=== PATIENT | male | born 1955 | race African-American/Black ===

== ENCOUNTER 2017-12-26 01:30 | Inpatient (IN) | payer MEDICARE ==
[2017-12-26] MEDS ORDERED: Maalox 30 mL Cup PO PRN (02:06)
[2017-12-26] MEDS ORDERED: Magnesium Hydroxide (MOM) 30 mL UDC PO PRN (02:06)
[2017-12-26 02:21] VITALS: BP 160/88
[2017-12-26] MEDS: Diltiazem 30 mg Tab PO SCH ×2 (08:28→21:17)
[2017-12-26] MEDS: Multivitamin Tab PO SCH (08:30)
[2017-12-26] MEDS ORDERED: OLANZapine 5 mg Oral Disintegrating Tab PO SCH (09:00)
[2017-12-26] MEDS: INSULIN ASPART, RECOMBINANT 100 UNITS/ML SUBQ SCH ×3 (12:10→21:41)
--- NOTE | 2017-12-26 14:22 | History & Physical ---
ADMIT DATE: REQUESTING PHYSICIAN: Dr. Amelia Feliciano. PATIENT IDENTIFICATION: A 62-year-old male. REASON: Medical management. CHIEF COMPLAINT: "Can I go home." HISTORY OF PRESENT ILLNESS: A 62-year-old -[place] male who initially presented to [facility] with agitation and refused to wear clothes. The patient was gravely disable, where the patient was initially seen by Emergency Room MD and then psychiatrist. The patient was medically evaluated and medically cleared and subsequently transferred to [facility] for further psychiatric treatment. The patient is trying to provide history, but most of the history is obtained from reviewing the chart. Apparently, the patient lives in psych and locked facility in long-term. PAST MEDICAL HISTORY: Remarkable; 1. Hypertension. 2. Hyperlipidemia. 3. Psychotic disorder. 4. Dementia. 5. DJD. MEDICATIONS AT HOME: The patient is taking; 1. Metoprolol. 2. Cardizem. 3. Atorvastatin. 4. Depakote. 5. Risperdal. 6. Namenda. 7. Aspirin. 8. Sliding scale insulin. ALLERGIES: THE PATIENT IS ALLERGIC TO IBUPROFEN AND LISINOPRIL. SOCIAL HISTORY: The patient lives in a long-term. The patient has no smoking cigarette, alcohol, or drug use. FAMILY MEDICAL HISTORY: Remarkable for hypertension and diabetes. REVIEW OF SYSTEMS: The patient denies any headache, blurred vision, double vision, dysphagia, odynophagia, runny nose, stuffy nose, fever, chills, cough, chest pain, shortness of breath, palpitation, dizziness, nausea, vomiting, diarrhea, dysuria, hematochezia, or melena. No seizure or syncopal episode. PHYSICAL EXAMINATION: GENERAL: The patient is alert, awake, and oriented, lying in the bed without any acute distress. VITAL SIGNS: Temperature 97, pulse is 95, respiratory rate is 18, and blood pressure is 154/87. HEENT: Showed normocephalic and atraumatic. Extraocular muscles are intact. Tongue was pink and coated. Multiple absent teeth noted. Poor oral hygiene noted. No oral lesions noted. No exudate. NECK: Supple. No JVD. No hepatojugular reflux. No lymphadenopathy, thyromegaly, or carotid bruit. HEART: Both heart sounds are regular. No S3, no S4, no murmur. CHEST: Lung are equal in expansion. No wheezing, no crackles. BREASTS: The patient has evidence of gynecomastia is also noted. ABDOMEN: Soft. No guarding, no rigidity. Liver and spleen not palpable. No palpable mass. EXTREMITIES: No edema. No cyanosis or clubbing. Peripheral pulses are +2. No calf tenderness noted. NEUROLOGIC: Alert and awake. Follows commands. A 2-12 cranial nerves intact. Power in upper and lower extremities 5-. Sensory touch intact. Babinski's in both toes are going down. No cerebellar sign. AVAILABLE LABS: Including CT scan of the head has been reviewed from [facility]. CLINICAL IMPRESSION: 1. Psychotic disorder exacerbation. 2. Diabetes. 3. Hypertension. 4. Hyperlipidemia. 5. Degenerative joint disease. 6. Psychotic disorder. 7. Dementia. 8. Gynecomastia. 9. Fall risk. PLAN: 1. The patient is admitted at this time to psych facility, psychiatric evaluation and management deferred to psychiatrist. 2. The patient is to resume his underlying medications for his underlying problem, which include atorvastatin for hyperlipidemia, diltiazem for hypertension along with metoprolol. Continue the patient's Namenda for dementia along with Risperdal and Zyprexa for his psychotic illness. Symptoms management provided. Diabetes management will be done by checking glucose before meals and at bedtime with covering the blood sugar, sliding scale regular insulin as well. Fall precaution will be provided as well. We will continue to follow this patient during the stay at the hospital as well. As for the gynecomastia is concern, the patient can have further workup to be done as an outpatient. I sincerely thank you, Dr. Amelia Feliciano for giving me opportunity to participating in patient of yours. JOB# [id number]
[2017-12-26] MEDS: Atorvastatin Calcium 10 MG TAB PO SCH (21:17)
--- NOTE | 2017-12-27 00:44 | Psychosocial Evaluation ---
DATE OF SERVICE: 12/26/2017 AGE: 62. SEX: Male. PHYSICIAN: Braden. CHIEF COMPLAINT: 5150 hold for combative behavior. HISTORY OF PRESENT ILLNESS: The patient is a 62-year-old male who has a history of schizoaffective disorder. The patient was transferred from [facility] because of increased agitation and because of combative behavior. The patient has been confused and aggressive with staff in the half-way and has been responding to stimuli and talking to himself. The patient also has been easily agitated and irritable and unable to follow any of staff directions. The patient has history of Parkinson disease, which makes his condition worse. PAST PSYCHIATRIC HISTORY: The patient has history of schizoaffective disorder and has been taking Zyprexa. PAST MEDICAL HISTORY: The patient has seizure disorder and hypertension as well as Parkinson disease and hyperlipidemia. SOCIAL HISTORY: The patient lives in [facility]. No known alcohol or drug use. ALLERGIES: No known allergies. CURRENT MEDICATIONS: Zyprexa, Namenda, Risperdal, and Depakote. MENTAL STATUS EXAMINATION: The patient appears his stated age. Anxious. Irritable mood. Thought processes are circumstantial with occasional flight of ideas. The patient denies hallucinations or delusions and denies any suicidal or homicidal ideations. The patient is alert and oriented to the situation and place and person. Intact immediate, recent and remote memories. Poor insight and poor judgment. ASSESSMENT: Primary diagnosis; schizoaffective disorder, bipolar type, severe, with psychotic features. TREATMENT PLAN: We will continue current medications and will adjust the dose. We will start individual as well as milieu psychotherapy. ESTIMATED LENGTH OF STAY: 5-7 days. THE PATIENT'S STRENGTHS AND WEAKNESSES: The patient's strength is not clear at this time. Weaknesses is poor impulse control. AFTER DISCHARGE PLAN: Outpatient treatment and followup. We will continue as an outpatient. CRITERIA FOR DISCHARGE: Better impulse control and gets agitated and adjusting psychotropic medications. JOB# [id number]
[2017-12-27] MEDS: INSULIN ASPART, RECOMBINANT 100 UNITS/ML SUBQ SCH ×4 (07:06→20:56)
[2017-12-27] MEDS: Multivitamin Tab PO SCH (08:03)
[2017-12-27] MEDS: Diltiazem 30 mg Tab PO SCH ×2 (08:06→20:56)
[2017-12-27] MEDS: OLANZapine 5 mg Oral Disintegrating Tab PO SCH ×2 (10:00→16:43)
[2017-12-27] MEDS: Atorvastatin Calcium 10 MG TAB PO SCH (20:52)
[2017-12-28] MEDS: INSULIN ASPART, RECOMBINANT 100 UNITS/ML SUBQ SCH ×4 (06:56→20:49)
[2017-12-28] MEDS: OLANZapine 5 mg Oral Disintegrating Tab PO SCH ×2 (08:36→16:57)
[2017-12-28] MEDS ORDERED: Haloperidol Lactate 5 mg/mL 1mL Vial ONE (08:59)
[2017-12-28] MEDS ORDERED: Haloperidol Lactate 5 mg/mL 1mL Vial IM ONE (09:08)
[2017-12-28] MEDS: Diltiazem 30 mg Tab PO SCH ×2 (13:59→20:30)
[2017-12-28] MEDS: Multivitamin Tab PO SCH (13:59)
[2017-12-28] MEDS: Atorvastatin Calcium 10 MG TAB PO SCH (20:30)
[2017-12-29] MEDS: INSULIN ASPART, RECOMBINANT 100 UNITS/ML SUBQ SCH ×4 (06:38→22:02)
[2017-12-29] MEDS: OLANZapine 5 mg Oral Disintegrating Tab PO SCH ×2 (08:34→16:19)
[2017-12-29] MEDS: Multivitamin Tab PO SCH (08:34)
[2017-12-29] MEDS: Diltiazem 30 mg Tab PO SCH (08:45)
--- NOTE | 2017-12-29 13:58 | General Progress Note ---
Subjective - Review of Systems Subjective: Patient is seen and examined. No new events. Objective - Results Recent Labs: Laboratory Last Values POC Glucose 121 MG/DL (70 - 105) H 12/29/17 11:16 Valproic Acid 45.9 ug/mL (50.0-100.0) L 12/28/17 12:40 - Physical Exam Vitals and I&O: Vital Signs Temp 97.8 F 12/29/17 06:00 Pulse 98 12/29/17 08:45 Resp 20 12/29/17 06:00 BP 134/72 12/29/17 08:34 Pulse Ox 100 12/29/17 06:00 Intake & Output 12/28/17 12/29/17 12/29/17 18:59 06:59 18:59 Intake Total 850 120 250 Balance 850 120 250 Intake: Oral 850 120 250 Other: # Voids 4 1 2 # Bowel Movements 1 0 Active Medications: Current Medications Acetaminophen (Tylenol) 650 mg PO Q4HR PRN PRN Reason: Mild Pain / Temp above 100 Stop: 02/24/18 02:05 Al Hydrox/Mg Hydrox/Simethicone (Maalox) 30 ml PO Q4HR PRN PRN Reason: GI DISTRESS Stop: 02/24/18 02:05 Alprazolam (Xanax) 1 mg PO Q6HR PRN; Protocol PRN Reason: Anxiety Stop: 02/24/18 02:18 Atorvastatin Calcium (Lipitor) 40 mg PO HS KAYODE PRN Reason: Protocol Stop: 02/24/18 20:59 Last Admin: 12/28/17 20:30 Dose: 40 mg Diltiazem HCl (Cardizem) 120 mg PO Q12HR KAYODE Stop: 02/24/18 08:59 Last Admin: 12/29/17 08:45 Dose: 120 mg Divalproex Sodium (Depakote Dr) 500 mg PO HS KAYODE PRN Reason: Protocol Stop: 02/24/18 20:59 Last Admin: 12/28/17 20:30 Dose: 500 mg Docusate Sodium (Colace) 100 mg PO DAILY KAYODE Stop: 02/24/18 08:59 Last Admin: 12/29/17 08:34 Dose: 100 mg Insulin Aspart (Novolog) 0 units SUBQ ACHS KAYODE PRN Reason: Protocol Stop: 05/06/18 11:29 Last Admin: 12/29/17 11:18 Dose: Not Given Lorazepam (Ativan) 0.5 mg PO Q4HR PRN; Protocol PRN Reason: Anxiety Stop: 01/25/18 02:05 Last Admin: 12/29/17 10:48 Dose: 0.5 mg Magnesium Hydroxide (Milk Of Magnesia) 30 ml PO HS PRN PRN Reason: Constipation Memantine (Namenda) 5 mg PO BID KAYODE Stop: 02/24/18 08:59 Last Admin: 12/29/17 08:34 Dose: 5 mg Metoprolol Tartrate (Lopressor) 25 mg PO BID KAYODE Stop: 02/24/18 08:59 Last Admin: 12/29/17 08:34 Dose: 25 mg Multivitamins/Vitamin C (Theragran) 1 tab PO DAILY KAYODE Stop: 02/24/18 08:59 Last Admin: 12/29/17 08:34 Dose: 1 tab Olanzapine (Zyprexa Zydis) 10 mg PO BID KAYODE PRN Reason: Protocol Stop: 02/25/18 07:44 Last Admin: 12/29/17 08:34 Dose: 10 mg Zolpidem Tartrate (Ambien) 5 mg PO HS PRN PRN Reason: Insomnia Stop: 02/24/18 02:05 Last Admin: 12/28/17 20:30 Dose: 5 mg General: Alert, Cooperative, No acute distress HEENT: Atraumatic, PERRLA, EOMI Neck: Supple, JVD Cardiovascular: Regular rate, Normal S1, Normal S2 Lungs: Clear to auscultation Abdomen: Bowel sounds, Soft Extremities: Other (No edema.) Neurological: Cranial nerves 3-12 NL, Other (decreased power through out.) Skin: Rash (No rash) Assessment/Plan - Assessment Assessment: Diabetes. Hypertension. Hyperlipedemia. DJD Dementia. Psych disorder. Debility Gynecomastia Fall risk. - Plan Plan: Monitor glucose and vitals General nursing care Diabetes management Anti HTN meds Statin. Psych meds Psych follow up Falls precautions Continue current care Discussed with staff.
[2017-12-29] MEDS: Atorvastatin Calcium 10 MG TAB PO SCH (22:00)
--- NOTE | 2017-12-29 22:16 | Progress Notes ---
DATE: 12/27/2017 SUBJECTIVE: Chart reviewed and the patient interviewed. Also discussed the patient's condition with the staff and reviewed records and labs. The patient continued to be agitated and he is still in irritable mood. Also, is still confused and he is still resisting care and gets agitated when staff tries to help him. Also, still suspicious and paranoid. Also difficulty following directions. Otherwise, the patient is compliant with taking his medications with no side effects of medications. ASSESSMENT: The patient is still aggressive and can be dangerous to others. TREATMENT PLAN: We will increase Zyprexa to 10 mg twice a day and also increase Ativan to 1 mg every 4 hours on a p.r.n. basis. Also, continue to follow up to work on behavioral modification and follow up closely. JOB# [id number]
--- NOTE | 2017-12-29 22:42 | Progress Notes ---
DATE: 12/28/2017 SUBJECTIVE: Chart reviewed and the patient interviewed. Also discussed the patient's condition with the staff and reviewed records and labs. The patient continued to be unpredictable and he is still in irritable mood. The patient also still has disorganized thoughts and still seems to be actively responding to stimuli and talking to himself. The patient also still trying to take his clothes off. Otherwise, the patient is compliant with taking his medications with no side effects of medications. ASSESSMENT: The patient is still combative and still can be dangerous to others. TREATMENT PLAN: We will monitor the patient's behavior and condition closely. Also, we will place the patient on a 5250 hold for dangerous to others and grave disability. Also, we will discontinue Risperdal and also Zyprexa was increased to 10 mg twice a day. Also, we will get Depakote blood level. JOB# [id number]
--- NOTE | 2017-12-30 05:32 | Progress Notes ---
DATE: SUBJECTIVE: Chart reviewed and the patient interviewed. Also discussed the patient's condition with the staff and reviewed the records and labs. The patient is still unpredictable and is still easily agitated. Also, is still aggressive at times, needs lots of redirections. The patient also continued to take Depakote in a dose of 500 mg at bedtime and Namenda 5 mg twice a day, and Zyprexa 5 mg twice a day. No side effects of medications. ASSESSMENT: The patient is still agitated and psychotic. TREATMENT PLAN: Continue to monitor his behavior and his condition closely. Also, we will increase Zyprexa to 10 mg twice a day and we will continue to follow up closely. [facility]# [id number]
[2017-12-30] MEDS: INSULIN ASPART, RECOMBINANT 100 UNITS/ML SUBQ SCH ×4 (06:46→21:08)
[2017-12-30] MEDS: Multivitamin Tab PO SCH (08:29)
[2017-12-30] MEDS: OLANZapine 5 mg Oral Disintegrating Tab PO SCH ×2 (08:33→17:38)
[2017-12-30] MEDS: Diltiazem 30 mg Tab PO SCH ×2 (08:35→21:11)
[2017-12-30] MEDS: Atorvastatin Calcium 10 MG TAB PO SCH (21:00)
[2017-12-31] MEDS: INSULIN ASPART, RECOMBINANT 100 UNITS/ML SUBQ SCH ×4 (06:49→21:00)
[2017-12-31] MEDS: Multivitamin Tab PO SCH (09:09)
[2017-12-31] MEDS: OLANZapine 5 mg Oral Disintegrating Tab PO SCH (09:09)
[2017-12-31] MEDS: Diltiazem 30 mg Tab PO SCH ×2 (09:10→21:30)
[2017-12-31] MEDS: OLANZapine 10 mg Oral Disintegrating Tab PO SCH (18:08)
[2017-12-31] MEDS: Atorvastatin Calcium 10 MG TAB PO SCH (21:33)
[2018-01-01] MEDS: INSULIN ASPART, RECOMBINANT 100 UNITS/ML SUBQ SCH ×4 (06:49→21:00)
[2018-01-01] MEDS: Multivitamin Tab PO SCH (07:59)
[2018-01-01] MEDS: Diltiazem 30 mg Tab PO SCH ×2 (08:04→21:00)
--- NOTE | 2018-01-01 17:22 | Progress Notes ---
DATE: 01/01/2018 SUBJECTIVE: A 62-year-old male with history of schizoaffective, transferred from [facility] with increased agitation, combative behaviors, confused, aggressive. The patient currently in a Bryanna chair, banging the Bryanna chair, nonsensical, saying things that do not make any sense. It is difficult to fully understand what he is saying. Still easily agitated, still responding and seemingly psychotic. MEDICATIONS: Reviewed. ASSESSMENT: The patient remains symptomatic, still aggressive, agitated. PLAN: We will continue Zyprexa. Given his ongoing symptoms, he is not safe for discharge. Also continue Depakote. JOB# [id number]
[2018-01-01] MEDS: Atorvastatin Calcium 10 MG TAB PO SCH (21:07)
[2018-01-02] MEDS: INSULIN ASPART, RECOMBINANT 100 UNITS/ML SUBQ SCH ×4 (06:35→21:20)
[2018-01-02] MEDS: Diltiazem 30 mg Tab PO SCH ×2 (08:54→21:20)
[2018-01-02] MEDS: Multivitamin Tab PO SCH (08:55)
[2018-01-02] MEDS: OLANZapine 10 mg Oral Disintegrating Tab PO SCH ×4 (08:55→16:36)
--- NOTE | 2018-01-02 09:38 | General Progress Note ---
Subjective - Review of Systems Subjective: Patient is seen and examined. No new events or complaints. Objective - Results Recent Labs: Laboratory Last Values POC Glucose 83 MG/DL (70 - 105) 01/02/18 06:28 Valproic Acid 45.9 ug/mL (50.0-100.0) L 12/28/17 12:40 - Physical Exam Vitals and I&O: Vital Signs Temp 97.8 F 01/02/18 06:35 Pulse 96 01/02/18 08:55 Resp 20 01/02/18 06:35 BP 142/92 01/02/18 08:55 Pulse Ox 96 01/02/18 06:35 Intake & Output 01/01/18 01/02/18 01/02/18 18:59 06:59 18:59 Intake Total 600 360 Balance 600 360 Intake: Oral 600 360 Other: # Voids 3 1 Active Medications: Current Medications Acetaminophen (Tylenol) 650 mg PO Q4HR PRN PRN Reason: Mild Pain / Temp above 100 Stop: 02/24/18 02:05 Al Hydrox/Mg Hydrox/Simethicone (Maalox) 30 ml PO Q4HR PRN PRN Reason: GI DISTRESS Stop: 02/24/18 02:05 Alprazolam (Xanax) 1 mg PO Q6HR PRN; Protocol PRN Reason: Anxiety Stop: 02/24/18 02:18 Last Admin: 01/01/18 19:27 Dose: 1 mg Atorvastatin Calcium (Lipitor) 40 mg PO HS KAYODE PRN Reason: Protocol Stop: 02/24/18 20:59 Last Admin: 01/01/18 21:07 Dose: 40 mg Diltiazem HCl (Cardizem) 120 mg PO Q12HR KAYODE Stop: 02/24/18 08:59 Last Admin: 01/02/18 08:54 Dose: 120 mg Divalproex Sodium (Depakote Dr) 500 mg PO HS KAYODE PRN Reason: Protocol Stop: 02/24/18 20:59 Last Admin: 01/01/18 21:07 Dose: 500 mg Docusate Sodium (Colace) 100 mg PO DAILY KAYODE Stop: 02/24/18 08:59 Last Admin: 01/02/18 08:55 Dose: 100 mg Insulin Aspart (Novolog) 0 units SUBQ ACHS KAYODE PRN Reason: Protocol Stop: 02/24/18 11:29 Last Admin: 01/02/18 06:35 Dose: Not Given Lorazepam (Ativan) 0.5 mg PO Q4HR PRN; Protocol PRN Reason: Anxiety Stop: 01/25/18 02:05 Last Admin: 12/31/17 17:17 Dose: 0.5 mg Magnesium Hydroxide (Milk Of Magnesia) 30 ml PO HS PRN PRN Reason: Constipation Memantine (Namenda) 5 mg PO BID KAYODE Stop: 02/24/18 08:59 Last Admin: 01/02/18 08:54 Dose: 5 mg Metoprolol Tartrate (Lopressor) 25 mg PO BID KAYODE Stop: 02/24/18 08:59 Last Admin: 01/02/18 08:55 Dose: 25 mg Multivitamins/Vitamin C (Theragran) 1 tab PO DAILY KAYODE Stop: 02/24/18 08:59 Last Admin: 01/02/18 08:55 Dose: 1 tab Olanzapine (Zyprexa Zydis) 10 mg PO BID KAYODE Stop: 03/01/18 16:59 Last Admin: 01/02/18 08:55 Dose: 10 mg Zolpidem Tartrate (Ambien) 5 mg PO HS PRN PRN Reason: Insomnia Stop: 02/24/18 02:05 Last Admin: 12/31/17 21:33 Dose: 5 mg General: Alert, Cooperative, No acute distress HEENT: Atraumatic, PERRLA, EOMI Neck: Supple, JVD Cardiovascular: Regular rate, Normal S1, Normal S2 Lungs: Clear to auscultation Abdomen: Bowel sounds, Soft Extremities: Other (No edema.) Neurological: Cranial nerves 3-12 NL, Other (decreased power through out.) Skin: Rash (No rash) Assessment/Plan - Assessment Assessment: Diabetes. Hypertension. Hyperlipedemia. DJD Dementia. Psych disorder. Debility Gynecomastia Fall risk. - Plan Plan: Monitor glucose and vitals General nursing care Diabetes management Anti HTN meds Statin. Symptoms control. Medication management. Psych meds Psych follow up Falls precautions Continue current care Discussed with staff. Nutritional Asmnt/Malnutr-PDOC - Dietary Evaluation Malnutrition Findings (Please click <Entered> for more info): Nutritional Asmnt/Malnutrition Start: 12/31/17 10: 03 Text: Status: Complete Freq: Document 12/31/17 10:03 LCHENG (Rec: 12/31/17 10:09 [email or web address]) Nutritional Asmnt/Malnutrition Patient General Information Nutritional Screening Moderate Risk Diagnosis psychosis Pertinent Medical Hx/Surgical Hx HTN, hyperlipidemia, psychotic disorder, dementia, DJD Subjective Information Per EMR, PO intake mostly 75- 100%. Current Diet Order/ Nutrition Support CCHO 60gm, SOLOMON/NCS, prosource daily Pertinent Medications colace, novolog, theragran Pertinent Labs 12/29-12/31 POC 69-153 Nutritional Hx/Data Height 1.93 m Height (Calculated Centimeters) 193.0 Current Weight (lbs) 72.575 kg Weight (Calculated Kilograms) 72.6 Weight (Calculated Grams) 96977.8 [place] Body Weight 202 Body Mass Index (BMI) 19.5 Weight Status Approriate GI Symptoms GI Symptoms None Last BM 12/29 Difficult in: None Skin Integrity/Comment: dryness Current %PO Good (75-100%) Estimated Nutritional Goals BEE in Kcals: Using Current wt Calories/Kcals/Kg 27-32 Kcals Calculated 8999-6697 Protein: Using Current wt Protein g/k-1.2 Protein Calculated 73-88 Fluid: ml 2044-2336ml (1ml/kcal) Nutritional Problem No current Nutrition Prob Problem N/A Malnutrition Alert Protein-Calorie Malnutrition N/A Is there a minimum of two criteria No selected? Query Text:Check all the applicable criteria. A minimum of two criteria are recommended for diagnosis of either severe or non-severe malnutrition. Intervention/Recommendation Comments 1. Continue with current diet as ordered. 2. Monitor PO intake, wt, labs and skin integrity 3. F/U as low risk in 7 days, 01/07 Expected Outcomes/Goals Expected Outcomes/Goals 1. PO intake to meet at least 75% of nutritional needs. 2. Wt stability, skin to remain intact, labs to approach WNL.
[2018-01-02] MEDS: Atorvastatin Calcium 10 MG TAB PO SCH (20:33)
--- NOTE | 2018-01-03 05:55 | Progress Notes ---
DATE: 01/02/2018 SUBJECTIVE: Chart reviewed and the patient interviewed. Also discussed the patient's condition with the staff and reviewed records and labs. The patient is still confused and disoriented. The patient also is still restless and he still needs redirections. The patient still has difficulty following staff directions. He also still has episodes of anger and agitation especially during the day. Also, still has difficulty with controlling his temper. ASSESSMENT: The patient is still agitated and is still psychotic. TREATMENT PLAN: We will continue monitoring his behavior and his condition closely. Also, continue working on his anger and his irritability and continue to follow up closely. JOB# [id number]
--- NOTE | 2018-01-03 06:26 | Progress Notes ---
DATE: 01/03/2018 SUBJECTIVE: Chart reviewed and the patient interviewed. I also discussed the patient's condition with the staff and reviewed records and labs. The patient remains confused and he still seems to be disoriented. The patient also still has episodes of aggression and the patient tries to hit staff while helping him with his ADLs. The patient also still has severe mood swings. Yesterday, the patient threw food tray towards staff. Otherwise, the patient is compliant with taking his medications with no side effects of medications. ASSESSMENT: The patient is still psychotic and agitated. TREATMENT PLAN: We will continue monitoring his behavior and his condition closely. Also, we will increase Namenda to 10 mg twice a day. Also, continue to work on behavioral modification and continue to follow up. JOB# [id number]
[2018-01-03] MEDS ORDERED: Haloperidol Lactate 5 mg/mL 1mL Vial IM ONE (06:35)
[2018-01-03] MEDS: Diltiazem 30 mg Tab PO SCH ×2 (09:00→21:09)
[2018-01-03] MEDS: Multivitamin Tab PO SCH (09:50)
[2018-01-03] MEDS: OLANZapine 10 mg Oral Disintegrating Tab PO SCH ×2 (09:50→16:41)
[2018-01-03] MEDS: INSULIN ASPART, RECOMBINANT 100 UNITS/ML SUBQ SCH ×3 (12:11→21:21)
[2018-01-03] MEDS: Atorvastatin Calcium 10 MG TAB PO SCH (21:10)
[2018-01-04] MEDS: INSULIN ASPART, RECOMBINANT 100 UNITS/ML SUBQ SCH ×4 (07:40→21:35)
[2018-01-04] MEDS: Diltiazem 30 mg Tab PO SCH ×2 (09:00→21:34)
[2018-01-04] MEDS: Multivitamin Tab PO SCH (09:10)
[2018-01-04] MEDS: OLANZapine 10 mg Oral Disintegrating Tab PO SCH ×2 (09:11→16:33)
--- NOTE | 2018-01-04 11:06 | Progress Notes ---
DATE: 01/04/2018 SUBJECTIVE: Chart reviewed and the patient interviewed. Also discussed the patient's condition with the staff and reviewed records and labs. The patient is still in irritable and angry mood. The patient also is still paranoid and still easily agitated. Also, still has mood swings. On the other hand, the patient is cooperative and compliant with taking his medications. The patient was actively talking to himself, but he seems to be calmer than yesterday and slightly easier to redirect him. ASSESSMENT: The patient is still confused and psychotic. TREATMENT PLAN: Continue to monitor his behavior and his condition closely and will continue to follow up. JOB# [id number]
[2018-01-04] MEDS: Atorvastatin Calcium 10 MG TAB PO SCH (21:36)
[2018-01-05] MEDS: INSULIN ASPART, RECOMBINANT 100 UNITS/ML SUBQ SCH ×2 (06:40→11:58)
[2018-01-05] MEDS: Multivitamin Tab PO SCH (08:02)
[2018-01-05] MEDS: OLANZapine 10 mg Oral Disintegrating Tab PO SCH (08:02)
[2018-01-05] MEDS: Diltiazem 30 mg Tab PO SCH (09:49)
[2018-01-05] MEDS ORDERED: Haloperidol Lactate 5 mg/mL 1mL Vial ONE (12:59)
[2018-01-05] MEDS ORDERED: Haloperidol Lactate 5 mg/mL 1mL Vial IM ONE (13:02)
[2018-01-05 13:58] LABS: HEMATOCRIT 53.3 % (41.0-60); HEMOGLOBIN 17.6 gm/dL (12-16); MEAN CELL VOLUME 88.5 fl (80-99); MEAN CORPUSCULAR HEMOGLOBIN 29.2 pg (26.0-30.0); MEAN CORPUSCULAR HGB CONC 32.9 pg (28.0-36.0); PLATELET COUNT 58 Th/cmm (150-400); RED BLOOD COUNT 6.02 Mil/cmm (4.30-5.70); RED CELL DISTRIBUTION WIDTH 13.8 % (11.5-20.0)
[2018-01-05 14:16] LABS: ALBUMIN 4.3 gm/dL (4.2-5.5); ANION GAP 20.2 (7.0-16.0); BILIRUBIN,TOTAL 0.6 mg/dL (0.3-1.0); CREATININE - SERUM 2.8 mg/dL (0.7-1.3); GFR AFRICAN-AMERICAN 29.9 ml/min (>90); GFR NON AFRICAN-AMERICAN 24.7 ml/min; POTASSIUM SERUM 5.2 mEq/L (3.5-5.1); TOTAL PROTEIN,SERUM 8.8 gm/dL (6.0-8.3)
[2018-01-05 14:25] LABS: MANUAL DIFF REQUIRED? YES
[2018-01-05 14:33] LABS: LYMPHOCYTE 14 % (20-50); MONOCYTE 3 % (2-10); NEUTROPHILS 83 % (40-80); PLATELET ESTIMATE DECREASED PLATELETS (NORMAL)
[2018-01-05] MEDS ORDERED: Dextrose 5% 1,000 ML IV SCH (15:00)
--- NOTE | 2018-01-05 16:46 | General Progress Note ---
Subjective - Review of Systems Service Date: 01/05/18 Subjective: Late entry: Patient was seen and examined earlier today. Per nursing staff patient has been refusing to eat or drink for the past two days. Objective - Results Result Diagrams: 01/05/18 13:40 01/05/18 13:40 Recent Labs: Laboratory Last Values WBC 14.0 Th/cmm (4.8-10.8) H 01/05/18 13:40 RBC 6.02 Mil/cmm (4.30-5.70) H 01/05/18 13:40 Hgb 17.6 gm/dL (12-16) 01/05/18 13:40 Hct 53.3 % (41.0-60) 01/05/18 13:40 MCV 88.5 fl (80-99) 01/05/18 13:40 MCH 29.2 pg (26.0-30.0) 01/05/18 13:40 MCHC Differential 32.9 pg (28.0-36.0) 01/05/18 13:40 RDW 13.8 % (11.5-20.0) 01/05/18 13:40 Plt Count 58 Th/cmm (150-400) L 01/05/18 13:40 MPV 10.0 fl 01/05/18 13:40 Neutrophils (Manual) 83 % (40-80) H 01/05/18 13:40 Lymphocytes 14 % (20-50) L 01/05/18 13:40 Monocytes 3 % (2-10) 01/05/18 13:40 Platelet Estimate DECREASED PLATELETS (NORMAL) 01/05/18 13:40 Sodium 162 mEq/L (136-145) H* 01/05/18 13:40 Potassium 5.2 mEq/L (3.5-5.1) H 01/05/18 13:40 Chloride 125 mEq/L (98-107) H 01/05/18 13:40 Carbon Dioxide 22.0 mEq/L (21.0-31.0) 01/05/18 13:40 Anion Gap 20.2 (7.0-16.0) H 01/05/18 13:40 BUN 108 mg/dL (7-25) H* 01/05/18 13:40 Creatinine 2.8 mg/dL (0.7-1.3) H 01/05/18 13:40 Est GFR ( Amer) 29.9 ml/min (>90) 01/05/18 13:40 Est GFR (Non-Af Amer) 24.7 ml/min 01/05/18 13:40 BUN/Creatinine Ratio 38.6 01/05/18 13:40 Glucose 107 mg/dL (70-105) H 01/05/18 13:40 POC Glucose 80 MG/DL (70 - 105) 01/05/18 11:45 Calcium 11.0 mg/dL (8.6-10.3) H 01/05/18 13:40 Total Bilirubin 0.6 mg/dL (0.3-1.0) 01/05/18 13:40 AST 37 U/L (13-39) 01/05/18 13:40 ALT 21 U/L (7-52) 01/05/18 13:40 Alkaline Phosphatase 81 U/L (34-104) 01/05/18 13:40 Total Protein 8.8 gm/dL (6.0-8.3) H 01/05/18 13:40 Albumin 4.3 gm/dL (4.2-5.5) 01/05/18 13:40 Globulin 4.5 gm/dL 01/05/18 13:40 Albumin/Globulin Ratio 1.0 (1.0-1.8) 01/05/18 13:40 Valproic Acid 45.9 ug/mL (50.0-100.0) L 12/28/17 12:40 - Physical Exam Vitals and I&O: Vital Signs Temp 97.4 F 01/05/18 14:50 Pulse 94 01/05/18 14:50 Resp 18 01/05/18 14:50 BP 102/71 01/05/18 14:50 Pulse Ox 97 01/05/18 14:50 Intake & Output 01/04/18 01/05/18 01/05/18 18:59 06:59 18:59 Intake Total 500 Balance 500 Intake: Oral 500 Other: # Voids 2 General: No acute distress Cardiovascular: Regular rate Lungs: Clear to auscultation Abdomen: Soft Extremities: Other (No edema.), no Edema Neurological: Cranial nerves 3-12 NL Skin: Rash (No rash) Psych/Mental Status: Other (confused) Assessment/Plan - Assessment Assessment: Severe dehydration Acute renal failure Leucocytosis r/o sepsi Mental health disorder - Plan Plan: Transfer patient to Medical floor IV fluids and IV antibiotics Follow up labs Nephrology eval Sepsis w/u Plan of care discussed with nursing staff @ [facility] Case discussed with nephrology Nutritional Asmnt/Malnutr-PDOC - Dietary Evaluation Malnutrition Findings (Please click <Entered> for more info): Nutritional Asmnt/Malnutrition Start: 12/31/17 10: 03 Text: Status: Complete Freq: Document 12/31/17 10:03 MARCIANO (Rec: 12/31/17 10:09 MARCIANO [email or web address]) Nutritional Asmnt/Malnutrition Patient General Information Nutritional Screening Moderate Risk Diagnosis psychosis Pertinent Medical Hx/Surgical Hx HTN, hyperlipidemia, psychotic disorder, dementia, DJD Subjective Information Per EMR, PO intake mostly 75- 100%. Current Diet Order/ Nutrition Support CCHO 60gm, SOLOMON/NCS, prosource daily Pertinent Medications colace, novolog, theragran Pertinent Labs 12/29-12/31 POC 69-153 Nutritional Hx/Data Height 1.93 m Height (Calculated Centimeters) 193.0 Current Weight (lbs) 72.575 kg Weight (Calculated Kilograms) 72.6 Weight (Calculated Grams) 85063.8 [place] Body Weight 202 Body Mass Index (BMI) 19.5 Weight Status Approriate GI Symptoms GI Symptoms None Last BM 12/29 Difficult in: None Skin Integrity/Comment: dryness Current %PO Good (75-100%) Estimated Nutritional Goals BEE in Kcals: Using Current wt Calories/Kcals/Kg 27-32 Kcals Calculated 7923-3161 Protein: Using Current wt Protein g/k-1.2 Protein Calculated 73-88 Fluid: ml 2044-2336ml (1ml/kcal) Nutritional Problem No current Nutrition Prob Problem N/A Malnutrition Alert Protein-Calorie Malnutrition N/A Is there a minimum of two criteria No selected? Query Text:Check all the applicable criteria. A minimum of two criteria are recommended for diagnosis of either severe or non-severe malnutrition. Intervention/Recommendation Comments 1. Continue with current diet as ordered. 2. Monitor PO intake, wt, labs and skin integrity 3. F/U as low risk in 7 days, 01/07 Expected Outcomes/Goals Expected Outcomes/Goals 1. PO intake to meet at least 75% of nutritional needs. 2. Wt stability, skin to remain intact, labs to approach WNL.
--- NOTE | 2018-01-05 19:12 | Consultation ---
DATE OF CONSULTATION: 01/05/2018 RENAL CONSULTATION I am seeing this consult through the kind request of Dr. Natalio Hurd. REASON FOR CONSULTATION: Acute kidney injury. HISTORY OF PRESENT ILLNESS: Information is obtained from chart. The patient has altered mental status. He is a 62-year-old -[place] man who is in [facility] becoming very lethargic today, decreased level of consciousness. The patient is not responding as he normally does and labs were drawn and that revealed the patient had acute kidney injury and hypernatremia. PAST MEDICAL HISTORY: Significant for hypertension, hyperlipidemia, psychotic disorder, dementia and degenerative joint disease. ALLERGIES: IBUPROFEN AND LISINOPRIL. CURRENT MEDICATIONS: Tylenol as needed, Maalox, Lipitor, Cardizem, Depakote, Colace, NovoLog, Ativan as needed, milk of magnesia as needed, Namenda, Lopressor, multivitamin, Zyprexa, Ambien. REVIEW OF SYSTEMS: Unable to obtain from the patient due to his poor mental status. PHYSICAL EXAMINATION: VITAL SIGNS: Temperature of 97.4, heart rate of 90, respiratory rate of 20, blood pressure of 151/41. GENERAL: The patient is sitting in a chair, but does not wake up when I called, he does not answer. HEENT: Normocephalic, atraumatic. He has eyes closed, but when I open his eyes his pupils are reactive. Sclerae is nonicterus. Oral mucosa is dry. NECK: Supple. HEART: Regular rate and rhythm. LUNGS: Clear to auscultation bilaterally. ABDOMEN: Soft, nondistended, nontender. EXTREMITIES: Have no edema. DIAGNOSTIC DATA: WBC is 14, hemoglobin is 17.6, hematocrit is 53.3 with platelets of 58. Sodium of 162, potassium of 5.2, chloride of 125, bicarbonate of 22, BUN of 108, creatinine of 2.8 and glucose of 107. Calcium level is 11. IMPRESSION AND RECOMMENDATIONS: 1. Acute kidney injury. Physical exam consistent with prerenal azotemia. I would like to start him on IV fluid, specifically D5 water since his sodium is high. 2. Hyperkalemia. IV fluid will help. 3. Poor oral intake. 4. Hypernatremia as mentioned above. We will give D5 water. 5. Leukocytosis. We will check urinalysis. 6. Thrombocytopenia. We will recheck. 7. Hypercalcemia likely due to dehydration. IV fluids will help. 8. Psychotic disorder. Continue medications. Thank you again, Dr. Hurd, for your kind referral. We will follow the patient with you. [facility]# [id number]
--- NOTE | 2018-01-09 01:35 | Progress Notes ---
DATE: 12/30/2017 Chart reviewed and the patient interviewed. Also discussed the patient's condition with the staff and reviewed records and labs. The patient is still extremely angry and agitated and aggressive. The patient is fighting with the staff and is having very difficult time adjusting and following directions. The patient also is still disheveled and personal hygiene is still poor. On the other hand, the patient continued to comply with taking his medications. The patient denies any side effects of medications. ASSESSMENT: The patient is still psychotic and is still severely agitated and combative. TREATMENT PLAN: We will continue to monitor his behavior. Also, Zyprexa was increased yesterday to 10 mg twice a day and will continue same dose. Also, continue to work on his irritability and his agitation and continue to follow up. JOB# [id number]
== END 2018-01-05 15:13 | DRG 885 ==
LOC: GERO2 01:30 → GERO 12-27 16:24
PROVIDERS: ADMIT Psychiatry & Neurology Psychiatry; ATTEND Psychiatry & Neurology Psychiatry
DX: F25.0 Schizoaffective disorder, bipolar type (principal); F02.80 Dementia in other diseases classified elsewhere, unspecified severity, without behavioral disturbance, psychotic disturbance, mood disturbance, and anxiety; N17.9 Acute kidney failure, unspecified; A41.9 Sepsis, unspecified organism; G20 Parkinson's disease; E11.9 Type 2 diabetes mellitus without complications; E86.0 Dehydration; F29 Unspecified psychosis not due to a substance or known physiological condition; I10 Essential (primary) hypertension; E78.5 Hyperlipidemia, unspecified; M19.90 Unspecified osteoarthritis, unspecified site; N62 Hypertrophy of breast; Z91.81 History of falling; G40.909 Epilepsy, unspecified, not intractable, without status epilepticus; Z88.8 Allergy status to other drugs, medicaments and biological substances; Z83.3 Family history of diabetes mellitus; Z82.49 Family history of ischemic heart disease and other diseases of the circulatory system
CPT/HCPCS: 36415-UA; 71045-TC; 80053-TC; 80164-TC; 82948-90; 85007-TC; 85025-TC; 85027-TC; 87086-90; 90899; G0410; J1200; J1630; J1815; J2060; Z7610

== ENCOUNTER 2018-01-05 15:19 | Inpatient (IN) | payer MEDICARE ==
[2018-01-05] MEDS: Dextrose 5% 1,000 ML IV SCH (15:51)
[2018-01-05] MEDS ORDERED: Magnesium Hydroxide (MOM) 30 mL UDC PO PRN (15:53)
[2018-01-05] MEDS: INSULIN ASPART SLIDING SCALE 100 UNITS/ML UNIT SUBQ SCH (16:48)
[2018-01-05] MEDS: cefTRIAXone 1 GM in Sodium Chloride 0.9% 50 ML IV SCH (17:06)
--- NOTE | 2018-01-05 22:39 | Progress Notes ---
DATE: 01/05/2018 Case was discussed with staff of the patient, reviewed records. The patient has been refusing to eat, refusing medication for the past two to three days, and I discussed that with the staff. The patient himself was a poor historian, unable to carry on a conversation or make safe plan for self-care. I discussed with Cathi, the chart nurse that maybe he patient needs to go to the medical floor to be hydrated and she said she called Dr. Leonard several times ____ called Dr. Trevino. She said she will give him one more time to see if he eats today and if not, then she plans to call Dr. Trevino as the Dr. Leonard does not called back and we will continue to work with the patient in group therapy, milieu therapy, and adjust the medications as needed. JOB# [id number]
[2018-01-06] MEDS: INSULIN ASPART SLIDING SCALE 100 UNITS/ML UNIT SUBQ SCH ×6 (00:28→22:29)
[2018-01-06] MEDS: Diltiazem 30 mg Tab PO SCH ×3 (00:28→21:51)
[2018-01-06] MEDS: Atorvastatin Calcium 10 MG TAB PO SCH ×2 (00:28→21:51)
[2018-01-06] MEDS: Dextrose 5% 1,000 ML IV SCH ×3 (00:29→13:49)
[2018-01-06 01:10] LABS: URINE MICROSCOPIC INDICATED? YES; URINE SOURCE RANDOM
[2018-01-06 01:24] LABS: URINE BILIRUBIN NEGATIVE (NEGATIVE); URINE BLOOD NEGATIVE (NEGATIVE); URINE GLUCOSE (UA) NEGATIVE (NEGATIVE); URINE KETONE NEGATIVE (NEGATIVE); URINE LEUKOCYTE ESTERASE NEGATIVE (NEGATIVE); URINE NITRATE NEGATIVE (NEGATIVE); URINE PH 5.5 (4.6 - 8.0); URINE PROTEIN NEGATIVE (NEGATIVE); URINE UROBILINOGEN 0.2 E.U./dL (0.2 - 1.0)
[2018-01-06 01:32] LABS: URINE BACTERIA NONE SEEN /hpf (NONE SEEN); URINE CLARITY CLEAR (CLEAR); URINE COLOR YELLOW; URINE EPITHELIAL CELLS NONE SEEN /lpf (FEW); URINE RBC NONE SEEN /hpf (0-5); URINE WBC NONE SEEN /hpf (0-5)
[2018-01-06 07:17] LABS: % BASOPHILS 0.1 % (0.0-2.0); % EOSINOPHILS 1.8 % (0.0-5.0); % LYMPHOCYTES 17.2 % (20.0-50.0); % MONOCYTES 13.8 % (2.0-10.0); % NEUTROPHILS 67.1 % (40.0-80.0); EOSINOPHILE ABSOLUTE 0.3 Th/cmm (0.1-0.4); HEMATOCRIT 50.7 % (41.0-60); HEMOGLOBIN 16.7 gm/dL (12-16); LYMPHOCYTE ABSOLUTE 2.5 Th/cmm (1.5-3.0); MEAN CELL VOLUME 88.4 fl (80-99); MEAN CORPUSCULAR HEMOGLOBIN 29.1 pg (26.0-30.0); MEAN CORPUSCULAR HGB CONC 32.9 pg (28.0-36.0); MEAN PLATELET VOLUME 9.7 fl; NEUTROPHILE ABSOLUTE 9.6 Th/cmm (1.8-8.0); PLATELET COUNT 53 Th/cmm (150-400); RED BLOOD COUNT 5.74 Mil/cmm (4.30-5.70); RED CELL DISTRIBUTION WIDTH 13.7 % (11.5-20.0)
[2018-01-06 07:22] LABS: WHITE BLOOD COUNT 14.4 Th/cmm (4.8-10.8)
[2018-01-06 07:46] LABS: ANION GAP 15.9 (7.0-16.0); CALCIUM SERUM 10.2 mg/dL (8.6-10.3); CREATININE - SERUM 2.5 mg/dL (0.7-1.3); GFR NON AFRICAN-AMERICAN 28.1 ml/min; POTASSIUM SERUM 4.9 mEq/L (3.5-5.1)
[2018-01-06] MEDS: Multivitamin Tab PO SCH (08:22)
--- NOTE | 2018-01-06 15:19 | General Progress Note ---
Subjective - Review of Systems Service Date: 01/06/18 Events since last encounter: Pt is now in patient. Subjective: Has sitter. Nursing staff report patient is very combative. He tries to kick staff while he is still in bed. Objective - Results Result Diagrams: 01/06/18 06:04 01/06/18 06:04 Recent Labs: Laboratory Last Values WBC 14.4 Th/cmm (4.8-10.8) H 01/06/18 06:04 RBC 5.74 Mil/cmm (4.30-5.70) H 01/06/18 06:04 Hgb 16.7 gm/dL (12-16) 01/06/18 06:04 Hct 50.7 % (41.0-60) 01/06/18 06:04 MCV 88.4 fl (80-99) 01/06/18 06:04 MCH 29.1 pg (26.0-30.0) 01/06/18 06:04 MCHC Differential 32.9 pg (28.0-36.0) 01/06/18 06:04 RDW 13.7 % (11.5-20.0) 01/06/18 06:04 Plt Count 53 Th/cmm (150-400) L 01/06/18 06:04 MPV 9.7 fl 01/06/18 06:04 Neutrophils % 67.1 % (40.0-80.0) 01/06/18 06:04 Lymphocytes % 17.2 % (20.0-50.0) L 01/06/18 06:04 Monocytes % 13.8 % (2.0-10.0) H 01/06/18 06:04 Eosinophils % 1.8 % (0.0-5.0) 01/06/18 06:04 Basophils % 0.1 % (0.0-2.0) 01/06/18 06:04 Sodium 160 mEq/L (136-145) H* 01/06/18 06:04 Potassium 4.9 mEq/L (3.5-5.1) 01/06/18 06:04 Chloride 126 mEq/L (98-107) H 01/06/18 06:04 Carbon Dioxide 23.0 mEq/L (21.0-31.0) 01/06/18 06:04 Anion Gap 15.9 (7.0-16.0) 01/06/18 06:04 BUN 104 mg/dL (7-25) H* 01/06/18 06:04 Creatinine 2.5 mg/dL (0.7-1.3) H 01/06/18 06:04 Est GFR ( Amer) 34.0 ml/min (>90) 01/06/18 06:04 Est GFR (Non-Af Amer) 28.1 ml/min 01/06/18 06:04 BUN/Creatinine Ratio 41.6 01/06/18 06:04 Glucose 111 mg/dL (70-105) H 01/06/18 06:04 POC Glucose 124 MG/DL (70 - 105) H 01/06/18 11:17 Calcium 10.2 mg/dL (8.6-10.3) 01/06/18 06:04 Urine Source RANDOM 01/06/18 01:00 Urine Color YELLOW 01/06/18 01:00 Urine Clarity CLEAR (CLEAR) 01/06/18 01:00 Urine pH 5.5 (4.6 - 8.0) 01/06/18 01:00 Ur Specific [place] 1.020 (1.005-1.030) 01/06/18 01:00 Urine Protein NEGATIVE mg/dL (NEGATIVE) 01/06/18 01:00 Urine Glucose (UA) NEGATIVE mg/dL (NEGATIVE) 01/06/18 01:00 Urine Ketones NEGATIVE mg/dL (NEGATIVE) 01/06/18 01:00 Urine Blood NEGATIVE (NEGATIVE) 01/06/18 01:00 Urine Nitrate NEGATIVE (NEGATIVE) 01/06/18 01:00 Urine Bilirubin NEGATIVE (NEGATIVE) 01/06/18 01:00 Urine Urobilinogen 0.2 E.U./dL (0.2 - 1.0) 01/06/18 01:00 Ur Leukocyte Esterase NEGATIVE (NEGATIVE) 01/06/18 01:00 Urine RBC NONE SEEN /hpf (0-5) 01/06/18 01:00 Urine WBC NONE SEEN /hpf (0-5) 01/06/18 01:00 Ur Epithelial Cells NONE SEEN /lpf (FEW) 01/06/18 01:00 Urine Bacteria NONE SEEN /hpf (NONE SEEN) 01/06/18 01:00 - Physical Exam Vitals and I&O: Vital Signs Temp 97.7 F 01/06/18 11:20 Pulse 87 01/06/18 11:20 Resp 19 01/06/18 11:21 BP 127/76 01/06/18 11:20 Pulse Ox 97 01/06/18 11:20 Intake & Output 01/05/18 01/06/18 01/06/18 18:59 06:59 18:59 Intake Total 1150 1048 Balance 1150 1048 Weight (lbs) 72.575 kg 72.575 kg Intake: Intake, IV Amount 1050 948 Dextrose 5% 1,000 ml @ 1000 948 120 mls/hr IV .Q8H20M [facility] Rx#:[id number] cefTRIAXone 1 gm In 50 Sodium Chloride 0.9% 50 ml @ 100 mls/hr IV Q24HR [facility] Rx#:[id number] Oral 100 100 Other: # Voids 2 # Bowel Movements 0 Active Medications: Current Medications Acetaminophen (Tylenol) 650 mg PO Q4HR PRN PRN Reason: Pain Or Fever above 101 Stop: 03/06/18 16:07 Atorvastatin Calcium (Lipitor) 40 mg PO HS [facility] PRN Reason: Protocol Stop: 03/06/18 20:59 Last Admin: 01/06/18 00:28 Dose: 40 mg Diltiazem HCl (Cardizem) 120 mg PO Q12HR [facility] Stop: 03/06/18 20:59 Last Admin: 01/06/18 08:21 Dose: 120 mg Divalproex Sodium (Depakote Dr) 500 mg PO HS [facility] PRN Reason: Protocol Stop: 03/06/18 20:59 Last Admin: 01/06/18 00:28 Dose: 500 mg Docusate Sodium (Colace) 100 mg PO BID [facility] Stop: 03/06/18 16:59 Last Admin: 01/06/18 08:21 Dose: 100 mg Ceftriaxone Sodium 1 gm/ (Sodium Chloride) 50 mls @ 100 mls/hr IV Q24HR [facility] Stop: 03/06/18 17:59 Last Infusion: 01/05/18 20:00 Dose: Infused Dextrose (D5w) 1,000 mls @ 150 mls/hr IV .Q6H40M [facility] Stop: 03/07/18 13:43 Last Admin: 01/06/18 13:49 Dose: 150 mls/hr Insulin Aspart (Novolog Insulin Sliding Scale) 0 units SUBQ ACHS [facility] PRN Reason: Protocol Stop: 03/06/18 16:29 Last Admin: 01/06/18 11:29 Dose: Not Given Lorazepam (Ativan) 0.5 mg PO Q4HR PRN; Protocol PRN Reason: ANXIETY Stop: 03/06/18 15:56 Last Admin: 01/06/18 11:03 Dose: 0.5 mg Magnesium Hydroxide (Milk Of Magnesia) 30 ml PO HS PRN PRN Reason: Constipation Stop: 03/06/18 15:52 Memantine (Namenda) 10 mg PO BID [facility] Stop: 03/06/18 16:59 Last Admin: 01/06/18 08:22 Dose: 10 mg Metoprolol Tartrate (Lopressor) 25 mg PO BID [facility] Stop: 03/06/18 16:59 Last Admin: 01/06/18 08:22 Dose: 25 mg Multivitamins/Vitamin C (Theragran) 1 tab PO DAILY [facility] Stop: 03/07/18 08:59 Last Admin: 01/06/18 08:22 Dose: 1 tab Olanzapine (Zyprexa) 10 mg PO BID [facility] PRN Reason: Protocol Stop: 03/06/18 16:59 Last Admin: 01/06/18 08:22 Dose: 10 mg Zolpidem Tartrate (Ambien) 5 mg PO HS PRN PRN Reason: Insomnia Stop: 03/06/18 15:48 General: No acute distress (Confused.) HEENT: Atraumatic, PERRLA, EOMI, Other (dry oral mucosa) Neck: Supple Cardiovascular: Regular rate Lungs: Clear to auscultation Abdomen: Bowel sounds, Soft Neurological: Other (confused. Does not follow directions) Assessment/Plan - Assessment Assessment: 1. ALOC 2. Hypernatremia 3. ARCHIE 4. Psyche history. Confused at this time. 5. SZD 6. DM 7. HTN - Plan Plan: Continue D5W Monitor glc Will recheck labs in am. Continue meds for DM, HTN, SZD. Continue spyche meds.
[2018-01-06] MEDS: cefTRIAXone 1 GM in Sodium Chloride 0.9% 50 ML IV SCH (18:54)
[2018-01-06 19:38] LABS: A1C % 5.8 % (4.0-6.0)
--- NOTE | 2018-01-07 00:27 | History & Physical ---
ADMIT DATE: 01/05/2018 CHIEF COMPLAINT: Severe dehydration. HISTORY OF PRESENT ILLNESS: A 62-year-old male who [facility] and management of underlying psychiatric illnesses. For the past 2-3 days, the patient noticed not eating and drinking well, had lab orders done suggestive of severe dehydration and acute renal failure, severe hypernatremia, so the patient was transferred to medical floor. The patient has been on very high flow IV fluids since admissions; also evaluated by the imaging technician upon admission. The patient seems to be evaluated by imaging technician since admission. Per nursing staff, the patient has been off and on very combative, requiring multiple psychotropic medications and sitters at the bedside. I also spoke with the patient's over the phone to get more history about the patient's overall health and past medical history per . The patient has been diagnosed with prior history of stroke and diabetes has been in the retirement for the past 1 year. PAST MEDICAL HISTORY: Diabetes, CVA, hypertension, dementia, and mental disorders. PAST SURGICAL HISTORY: Noncontributory. FAMILY HISTORY: Noncontributory. SOCIAL HISTORY: The patient was living in a nursing facility prior to recent hospitalizations. ALLERGIES: ALLERGIC TO IBUPROFEN AND LISINOPRIL. REVIEW OF SYSTEMS: Difficult to obtain due to patient's underlying severe confusion. PHYSICAL EXAMINATION: VITAL SIGNS: Temperature 97.2, pulse 68, respiration 17, blood pressure , oxygen 98% on room air. HEART: S1, S2 normal. LUNGS: Clear to auscultation. ABDOMEN: Soft, nontender. NEUROLOGIC: The patient is awake, but very confused, does not follow command well. LABORATORY DATA: Available WBC 14.4, hemoglobin is 16.7, hematocrit is 50.7, platelet 53. Sodium 160, potassium is 4.9, BUN 104, creatinine is 2.5, blood sugar is 111, hemoglobin A1C is 5.8, TSH is 0.82, calcium 10.2. Urine; negative nitrite, negative leukocyte esterase. ASSESSMENT: 1. Acute renal failure secondary to severe dehydration. 2. Severe hypernatremia. 3. Diabetes, stable. 4. Hypertension. 5. Old cerebrovascular accident late effect. 6. Hyperlipidemia. 7. Leukocytosis, unclear etiology. 8. Thrombocytopenia, possibly medication side effect related to Depakote. PLAN: The patient is currently admitted to tele unit. The patient is on high-flow IV fluid hydration. Nephrology on board. A renal ultrasound is pending. Empiric antibiotic will be given. We will follow up labs. Monitor platelet count. Psychiatric is on board. Psychotropic medications management per psychiatrist. Monitor renal functions. I updated the patient's over the phone regarding the patient's condition. Plan of care discussed with nursing staff. JOB# [id number]
[2018-01-07] MEDS: Dextrose 5% 1,000 ML IV SCH ×3 (01:35→22:03)
--- NOTE | 2018-01-07 02:46 | Progress Notes ---
DATE: 01/06/2018 Case was discussed with staff of the patient and reviewed records. The patient was transferred yesterday from [facility] to [facility] because he was found to be dehydrated and have renal failure. The patient continues to be irritable and agitated. The staff tried to force him to eat and they are trying to hydrate him. The patient was very resistant to care when he was in [facility] and we had to give him some medication to make sure we get the lab work, as Dr. Carlson wanted some lab work because he transferred him and those were done. He was found to have renal failure and dehydration and was transferred here. At this point, the patient was compliant with the medication with no side effects. He is also on IV antibiotic and Depakote 500 mg at bedtime and Zyprexa 10 mg twice a day with no side effects, no sedation or nausea. He has mittens on and will continue to participate in group therapy and milieu therapy and adjust medications as needed. JOB# [id number]
[2018-01-07] MEDS: INSULIN ASPART SLIDING SCALE 100 UNITS/ML UNIT SUBQ SCH ×4 (07:24→22:33)
[2018-01-07 07:54] LABS: % BASOPHILS 0.8 % (0.0-2.0); % EOSINOPHILS 0.9 % (0.0-5.0); % LYMPHOCYTES 17.4 % (20.0-50.0); % MONOCYTES 9.2 % (2.0-10.0); % NEUTROPHILS 71.7 % (40.0-80.0); BASOPHILE ABSOLUTE 0.1 Th/cumm (0-0.2); EOSINOPHILE ABSOLUTE 0.1 Th/cmm (0.1-0.4); HEMATOCRIT 49.5 % (41.0-60); HEMOGLOBIN 16.3 gm/dL (12-16); MEAN CELL VOLUME 88.4 fl (80-99); MEAN CORPUSCULAR HEMOGLOBIN 29.1 pg (26.0-30.0); MEAN CORPUSCULAR HGB CONC 32.9 pg (28.0-36.0); MEAN PLATELET VOLUME 9.8 fl; MONOCYTE ABSOLUTE 1.1 Th/cmm (0.3-1.0); NEUTROPHILE ABSOLUTE 8.2 Th/cmm (1.8-8.0); PLATELET COUNT 59 Th/cmm (150-400); RED CELL DISTRIBUTION WIDTH 13.9 % (11.5-20.0); WHITE BLOOD COUNT 11.5 Th/cmm (4.8-10.8)
[2018-01-07 08:32] LABS: ANION GAP 13.8 (7.0-16.0); CALCIUM SERUM 10.2 mg/dL (8.6-10.3); CARBON DIOXIDE 26.6 mEq/L (21.0-31.0); CREATININE - SERUM 2.2 mg/dL (0.7-1.3); GFR AFRICAN-AMERICAN 39.5 ml/min (>90); GFR NON AFRICAN-AMERICAN 32.6 ml/min; POTASSIUM SERUM 5.4 mEq/L (3.5-5.1)
[2018-01-07] MEDS: Diltiazem 30 mg Tab PO SCH ×2 (09:31→21:46)
[2018-01-07] MEDS: Haloperidol Lactate 5 mg/mL 1mL Vial IM PRN ×2 (09:32→16:20)
[2018-01-07] MEDS: Multivitamin Tab PO SCH (09:35)
--- NOTE | 2018-01-07 10:12 | General Progress Note ---
Subjective - Review of Systems Subjective: Patient is seen and examined. Confused and aggresive. Unable to get meaningful history. Objective - Results Result Diagrams: 01/07/18 07:50 01/07/18 07:50 Recent Labs: Laboratory Last Values WBC 11.5 Th/cmm (4.8-10.8) H 01/07/18 07:50 RBC 5.60 Mil/cmm (4.30-5.70) 01/07/18 07:50 Hgb 16.3 gm/dL (12-16) 01/07/18 07:50 Hct 49.5 % (41.0-60) 01/07/18 07:50 MCV 88.4 fl (80-99) 01/07/18 07:50 MCH 29.1 pg (26.0-30.0) 01/07/18 07:50 MCHC Differential 32.9 pg (28.0-36.0) 01/07/18 07:50 RDW 13.9 % (11.5-20.0) 01/07/18 07:50 Plt Count 59 Th/cmm (150-400) L 01/07/18 07:50 MPV 9.8 fl 01/07/18 07:50 Neutrophils % 71.7 % (40.0-80.0) 01/07/18 07:50 Lymphocytes % 17.4 % (20.0-50.0) L 01/07/18 07:50 Monocytes % 9.2 % (2.0-10.0) 01/07/18 07:50 Eosinophils % 0.9 % (0.0-5.0) 01/07/18 07:50 Basophils % 0.8 % (0.0-2.0) 01/07/18 07:50 Sodium 156 mEq/L (136-145) H 01/07/18 07:50 Potassium 5.4 mEq/L (3.5-5.1) H 01/07/18 07:50 Chloride 121 mEq/L (98-107) H 01/07/18 07:50 Carbon Dioxide 26.6 mEq/L (21.0-31.0) 01/07/18 07:50 Anion Gap 13.8 (7.0-16.0) 01/07/18 07:50 BUN 76 mg/dL (7-25) H 01/07/18 07:50 Creatinine 2.2 mg/dL (0.7-1.3) H 01/07/18 07:50 Est GFR ( Amer) 39.5 ml/min (>90) 01/07/18 07:50 Est GFR (Non-Af Amer) 32.6 ml/min 01/07/18 07:50 BUN/Creatinine Ratio 34.5 01/07/18 07:50 Glucose 119 mg/dL (70-105) H 01/07/18 07:50 POC Glucose 80 MG/DL (70 - 105) 01/06/18 16:33 Hemoglobin A1c % 5.8 % (4.0-6.0) 01/06/18 06:00 Calcium 10.2 mg/dL (8.6-10.3) 01/07/18 07:50 TSH 0.82 uIU/ml (0.34-5.60) 01/06/18 14:27 Urine Source RANDOM 01/06/18 01:00 Urine Color YELLOW 01/06/18 01:00 Urine Clarity CLEAR (CLEAR) 01/06/18 01:00 Urine pH 5.5 (4.6 - 8.0) 01/06/18 01:00 Ur Specific [place] 1.020 (1.005-1.030) 01/06/18 01:00 Urine Protein NEGATIVE mg/dL (NEGATIVE) 01/06/18 01:00 Urine Glucose (UA) NEGATIVE mg/dL (NEGATIVE) 01/06/18 01:00 Urine Ketones NEGATIVE mg/dL (NEGATIVE) 01/06/18 01:00 Urine Blood NEGATIVE (NEGATIVE) 01/06/18 01:00 Urine Nitrate NEGATIVE (NEGATIVE) 01/06/18 01:00 Urine Bilirubin NEGATIVE (NEGATIVE) 01/06/18 01:00 Urine Urobilinogen 0.2 E.U./dL (0.2 - 1.0) 01/06/18 01:00 Ur Leukocyte Esterase NEGATIVE (NEGATIVE) 01/06/18 01:00 Urine RBC NONE SEEN /hpf (0-5) 01/06/18 01:00 Urine WBC NONE SEEN /hpf (0-5) 01/06/18 01:00 Ur Epithelial Cells NONE SEEN /lpf (FEW) 01/06/18 01:00 Urine Bacteria NONE SEEN /hpf (NONE SEEN) 01/06/18 01:00 - Physical Exam Vitals and I&O: Vital Signs Temp 97.2 F 01/07/18 08:00 Pulse 114 01/07/18 09:31 Resp 18 01/07/18 08:17 BP 136/86 01/07/18 08:00 Pulse Ox 100 01/07/18 08:00 Intake & Output 01/06/18 01/07/18 01/07/18 18:59 06:59 18:59 Intake Total 1048 1050 240 Balance 1048 1050 240 Weight (lbs) 72.575 kg 72.575 kg Intake: Intake, IV Amount 948 1050 Dextrose 5% 1,000 ml @ 948 120 mls/hr IV .Q8H20M [facility] Rx#:[id number] Dextrose 5% 1,000 ml @ 1000 150 mls/hr IV .Q6H40M [facility] Rx#:[id number] cefTRIAXone 1 gm In 50 Sodium Chloride 0.9% 50 ml @ 100 mls/hr IV Q24HR [facility] Rx#:[id number] Oral 100 240 Other: # Voids 2 3 # Bowel Movements 0 0 Active Medications: Current Medications Acetaminophen (Tylenol) 650 mg PO Q4HR PRN PRN Reason: Pain Or Fever above 101 Stop: 03/06/18 16:07 Atorvastatin Calcium (Lipitor) 40 mg PO HS [facility] PRN Reason: Protocol Stop: 03/06/18 20:59 Last Admin: 01/06/18 21:51 Dose: 40 mg Diltiazem HCl (Cardizem) 120 mg PO Q12HR [facility] Stop: 03/06/18 20:59 Last Admin: 01/07/18 09:31 Dose: Not Given Divalproex Sodium (Depakote Dr) 500 mg PO HS [facility] PRN Reason: Protocol Stop: 03/06/18 20:59 Last Admin: 01/06/18 21:51 Dose: 500 mg Docusate Sodium (Colace) 100 mg PO BID [facility] Stop: 03/06/18 16:59 Last Admin: 01/07/18 09:35 Dose: Not Given Haloperidol Lactate (Haldol) 5 mg IM Q6HR PRN PRN Reason: Agitation Stop: 03/08/18 07:21 Last Admin: 01/07/18 09:32 Dose: 5 mg Ceftriaxone Sodium 1 gm/ (Sodium Chloride) 50 mls @ 100 mls/hr IV Q24HR [facility] Stop: 03/06/18 17:59 Last Infusion: 01/06/18 19:36 Dose: Infused Dextrose (D5w) 1,000 mls @ 150 mls/hr IV .Q6H40M [facility] Stop: 03/07/18 13:43 Last Admin: 01/07/18 01:35 Dose: 150 mls/hr Insulin Aspart (Novolog Insulin Sliding Scale) 0 units SUBQ ACHS [facility] PRN Reason: Protocol Stop: 03/06/18 16:29 Last Admin: 01/07/18 07:24 Dose: Not Given Lorazepam (Ativan) 0.5 mg PO Q4HR PRN; Protocol PRN Reason: Agitation Stop: 03/07/18 20:36 Last Admin: 01/07/18 05:46 Dose: 0.5 mg Magnesium Hydroxide (Milk Of Magnesia) 30 ml PO HS PRN PRN Reason: Constipation Stop: 03/06/18 15:52 Memantine (Namenda) 10 mg PO BID [facility] Stop: 03/06/18 16:59 Last Admin: 01/07/18 09:35 Dose: Not Given Metoprolol Tartrate (Lopressor) 25 mg PO BID [facility] Stop: 03/06/18 16:59 Last Admin: 01/07/18 09:35 Dose: Not Given Multivitamins/Vitamin C (Theragran) 1 tab PO DAILY [facility] Stop: 03/07/18 08:59 Last Admin: 01/07/18 09:35 Dose: Not Given Olanzapine (Zyprexa) 10 mg PO BID [facility] PRN Reason: Protocol Stop: 03/06/18 16:59 Last Admin: 01/07/18 09:35 Dose: Not Given Quetiapine Fumarate (Seroquel) 12.5 mg PO BID [facility] PRN Reason: Protocol Stop: 03/08/18 08:59 Last Admin: 01/07/18 09:35 Dose: Not Given Quetiapine Fumarate (Seroquel) 50 mg PO HS KAYODE PRN Reason: Protocol Stop: 03/08/18 20:59 Zolpidem Tartrate (Ambien) 5 mg PO HS PRN PRN Reason: Insomnia Stop: 03/06/18 15:48 Last Admin: 01/06/18 21:51 Dose: 5 mg General: Alert, No acute distress (Confused.) HEENT: Atraumatic, PERRLA, EOMI, Other (dry oral mucosa) Neck: Supple, JVD Cardiovascular: Regular rate, Normal S1, Normal S2 Lungs: Clear to auscultation Abdomen: Bowel sounds, Soft Neurological: Other (confused. Does not follow directions) Psych/Mental Status: Other (labile.) Assessment/Plan - Assessment Assessment: Hypernatremia ALOC DM HTN Psych disorder DJD Fall risk Hyperlipedemia. - Plan Plan: Free water IVF Monitor glucose and vitals Monitor behavior General nursing care. IV antibiotics Fall precautions Chronic disease management General nursing care Symptoms control Continue current care Discussed with Staff.
--- NOTE | 2018-01-07 15:04 | Discharge Summary ---
DATE OF DISCHARGE: 01/07/2018 FINAL DIAGNOSIS/PRIMARY DIAGNOSIS: Unspecified psychosis. SECONDARY DIAGNOSIS: Dementia, moderate to severe. REASON FOR HOSPITALIZATION: The patient was admitted to the hospital because of increasing irritability and agitation. HOSPITAL COURSE: The patient continued to be irritable and agitated. The patient also was having difficulty following any of staff directions. He also was suspicious, paranoid, and agitated. While the patient was in the Psych Unit, patient had some medical issues and the patient was transferred to the medical floor to continue his treatment as per instructions from Dr. Carlson. Physical exam of the patient was monitored by Dr. Carlson and patient transferred to medical floor because of increase in medical issues and medical problems. AFTER DISCHARGE PLANS: The patient discharged and transferred to medical floor with plans to follow him up there and monitor his behavior there. EXPECTED OUTCOME AFTER DISCHARGE: Depends on course in medical floor. [facility]# [id number]
--- NOTE | 2018-01-07 15:24 | General Progress Note ---
Subjective - Review of Systems Service Date: 01/07/18 Subjective: confused and combative Objective - Results Result Diagrams: 01/07/18 07:50 01/07/18 07:50 Recent Labs: Laboratory Last Values WBC 11.5 Th/cmm (4.8-10.8) H 01/07/18 07:50 RBC 5.60 Mil/cmm (4.30-5.70) 01/07/18 07:50 Hgb 16.3 gm/dL (12-16) 01/07/18 07:50 Hct 49.5 % (41.0-60) 01/07/18 07:50 MCV 88.4 fl (80-99) 01/07/18 07:50 MCH 29.1 pg (26.0-30.0) 01/07/18 07:50 MCHC Differential 32.9 pg (28.0-36.0) 01/07/18 07:50 RDW 13.9 % (11.5-20.0) 01/07/18 07:50 Plt Count 59 Th/cmm (150-400) L 01/07/18 07:50 MPV 9.8 fl 01/07/18 07:50 Neutrophils % 71.7 % (40.0-80.0) 01/07/18 07:50 Lymphocytes % 17.4 % (20.0-50.0) L 01/07/18 07:50 Monocytes % 9.2 % (2.0-10.0) 01/07/18 07:50 Eosinophils % 0.9 % (0.0-5.0) 01/07/18 07:50 Basophils % 0.8 % (0.0-2.0) 01/07/18 07:50 Sodium 156 mEq/L (136-145) H 01/07/18 07:50 Potassium 5.4 mEq/L (3.5-5.1) H 01/07/18 07:50 Chloride 121 mEq/L (98-107) H 01/07/18 07:50 Carbon Dioxide 26.6 mEq/L (21.0-31.0) 01/07/18 07:50 Anion Gap 13.8 (7.0-16.0) 01/07/18 07:50 BUN 76 mg/dL (7-25) H 01/07/18 07:50 Creatinine 2.2 mg/dL (0.7-1.3) H 01/07/18 07:50 Est GFR ( Amer) 39.5 ml/min (>90) 01/07/18 07:50 Est GFR (Non-Af Amer) 32.6 ml/min 01/07/18 07:50 BUN/Creatinine Ratio 34.5 01/07/18 07:50 Glucose 119 mg/dL (70-105) H 01/07/18 07:50 POC Glucose 80 MG/DL (70 - 105) 01/06/18 16:33 Hemoglobin A1c % 5.8 % (4.0-6.0) 01/06/18 06:00 Calcium 10.2 mg/dL (8.6-10.3) 01/07/18 07:50 TSH 0.82 uIU/ml (0.34-5.60) 01/06/18 14:27 Urine Source RANDOM 01/06/18 01:00 Urine Color YELLOW 01/06/18 01:00 Urine Clarity CLEAR (CLEAR) 01/06/18 01:00 Urine pH 5.5 (4.6 - 8.0) 01/06/18 01:00 Ur Specific [place] 1.020 (1.005-1.030) 01/06/18 01:00 Urine Protein NEGATIVE mg/dL (NEGATIVE) 01/06/18 01:00 Urine Glucose (UA) NEGATIVE mg/dL (NEGATIVE) 01/06/18 01:00 Urine Ketones NEGATIVE mg/dL (NEGATIVE) 01/06/18 01:00 Urine Blood NEGATIVE (NEGATIVE) 01/06/18 01:00 Urine Nitrate NEGATIVE (NEGATIVE) 01/06/18 01:00 Urine Bilirubin NEGATIVE (NEGATIVE) 01/06/18 01:00 Urine Urobilinogen 0.2 E.U./dL (0.2 - 1.0) 01/06/18 01:00 Ur Leukocyte Esterase NEGATIVE (NEGATIVE) 01/06/18 01:00 Urine RBC NONE SEEN /hpf (0-5) 01/06/18 01:00 Urine WBC NONE SEEN /hpf (0-5) 01/06/18 01:00 Ur Epithelial Cells NONE SEEN /lpf (FEW) 01/06/18 01:00 Urine Bacteria NONE SEEN /hpf (NONE SEEN) 01/06/18 01:00 - Physical Exam Vitals and I&O: Vital Signs Temp 97.2 F 01/07/18 08:00 Pulse 114 01/07/18 09:31 Resp 18 01/07/18 11:55 BP 136/86 01/07/18 08:00 Pulse Ox 100 01/07/18 08:00 Intake & Output 01/06/18 01/07/18 01/07/18 18:59 06:59 18:59 Intake Total 1048 1050 1240 Balance 1048 1050 1240 Weight (lbs) 72.575 kg 72.575 kg Intake: Intake, IV Amount 948 1050 1000 Dextrose 5% 1,000 ml @ 948 120 mls/hr IV .Q8H20M [facility] Rx#:[id number] Dextrose 5% 1,000 ml @ 1000 1000 150 mls/hr IV .Q6H40M [facility] Rx#:[id number] [id number] 1 gm In 50 Sodium Chloride 0.9% 50 ml @ 100 mls/hr IV Q24HR [facility] Rx#:[id number] Oral 100 240 Other: # Voids 2 3 # Bowel Movements 0 0 Active Medications: Current Medications Acetaminophen (Tylenol) 650 mg PO Q4HR PRN PRN Reason: Pain Or Fever above 101 Stop: 03/06/18 16:07 Atorvastatin Calcium (Lipitor) 40 mg PO HS [facility] PRN Reason: Protocol Stop: 03/06/18 20:59 Last Admin: 01/06/18 21:51 Dose: 40 mg Diltiazem HCl (Cardizem) 120 mg PO Q12HR [facility] Stop: 03/06/18 20:59 Last Admin: 01/07/18 09:31 Dose: Not Given Divalproex Sodium (Depakote Dr) 500 mg PO HS [facility] PRN Reason: Protocol Stop: 03/06/18 20:59 Last Admin: 01/06/18 21:51 Dose: 500 mg Docusate Sodium (Colace) 100 mg PO BID [facility] Stop: 03/06/18 16:59 Last Admin: 01/07/18 09:35 Dose: Not Given Haloperidol Lactate (Haldol) 5 mg IM Q6HR PRN PRN Reason: Agitation Stop: 03/08/18 07:21 Last Admin: 01/07/18 09:32 Dose: 5 mg Ceftriaxone Sodium 1 gm/ (Sodium Chloride) 50 mls @ 100 mls/hr IV Q24HR [facility] Stop: 03/06/18 17:59 Last Infusion: 01/06/18 19:36 Dose: Infused Dextrose (D5w) 1,000 mls @ 150 mls/hr IV .Q6H40M [facility] Stop: 03/07/18 13:43 Last Admin: 01/07/18 13:24 Dose: 150 mls/hr Insulin Aspart (Novolog Insulin Sliding Scale) 0 units SUBQ ACHS [facility] PRN Reason: Protocol Stop: 03/06/18 16:29 Last Admin: 01/07/18 11:23 Dose: Not Given Lorazepam (Ativan) 0.5 mg PO Q4HR PRN; Protocol PRN Reason: Agitation Stop: 03/07/18 20:36 Last Admin: 01/07/18 05:46 Dose: 0.5 mg Magnesium Hydroxide (Milk Of Magnesia) 30 ml PO HS PRN PRN Reason: Constipation Stop: 03/06/18 15:52 Memantine (Namenda) 10 mg PO BID [facility] Stop: 03/06/18 16:59 Last Admin: 01/07/18 09:35 Dose: Not Given Metoprolol Tartrate (Lopressor) 25 mg PO BID [facility] Stop: 03/06/18 16:59 Last Admin: 01/07/18 09:35 Dose: Not Given Multivitamins/Vitamin C (Theragran) 1 tab PO DAILY [facility] Stop: 03/07/18 08:59 Last Admin: 01/07/18 09:35 Dose: Not Given Olanzapine (Zyprexa) 10 mg PO BID [facility] PRN Reason: Protocol Stop: 03/06/18 16:59 Last Admin: 01/07/18 09:35 Dose: Not Given Quetiapine Fumarate (Seroquel) 12.5 mg PO BID [facility] PRN Reason: Protocol Stop: 03/08/18 08:59 Last Admin: 01/07/18 09:35 Dose: Not Given Quetiapine Fumarate (Seroquel) 50 mg PO HS [facility] PRN Reason: Protocol Stop: 03/08/18 20:59 Zolpidem Tartrate (Ambien) 5 mg PO HS PRN PRN Reason: Insomnia Stop: 03/06/18 15:48 Last Admin: 01/06/18 21:51 Dose: 5 mg General: Alert, No acute distress (Confused.) HEENT: Atraumatic, PERRLA, EOMI, Other (dry oral mucosa) Neck: Supple, JVD Cardiovascular: Regular rate, Normal S1, Normal S2 Lungs: Clear to auscultation Abdomen: Bowel sounds, Soft Neurological: Other (confused. Does not follow directions) Psych/Mental Status: Other (labile.) Assessment/Plan - Assessment Assessment: 1. ALOC 2. Hypernatremia 3. ARCHIE 4. Psyche history. Confused at this time. 5. SZD 6. DM 7. HTN - Plan Plan: Continue D5W Monitor glc Will recheck labs in am. Continue meds for DM, HTN, SZD. Continue spyche meds.
--- NOTE | 2018-01-07 16:32 | Progress Notes ---
DATE: SUBJECTIVE: Chart reviewed and the patient interviewed. Also discussed the patient's condition with the staff and reviewed the records and labs. The patient is still extremely agitated and restless. The patient also did not sleep most of last night and he was trying to get off bed and the patient was placed in gurney chair for safety issues. The patient also is confused and during my interview, the patient was not able to answer any of my questions because of his agitation and restlessness. At the same time, the patient to continue to take Zyprexa in a dose of 10 mg twice a day. ASSESSMENT: The patient is still agitated and confused. TREATMENT PLAN: We will continue monitoring the patient's behavior and condition closely. Also, we will start the patient on Seroquel in a dose of 12.5 mg twice a day and 50 mg at bedtime. The patient is already taking Zyprexa, but it seems that Zyprexa is not helping his agitation and we will add Seroquel, was planned to cross titration when behavior is more under control. At the same time, we will give Seroquel and we will also monitor his mood and work on behavioral modification and continue followup. JOB# [id number]
[2018-01-07] MEDS: cefTRIAXone 1 GM in Sodium Chloride 0.9% 50 ML IV SCH (17:31)
[2018-01-07] MEDS: Atorvastatin Calcium 10 MG TAB PO SCH (21:43)
[2018-01-08 06:27] LABS: % BASOPHILS 0.1 % (0.0-2.0); % EOSINOPHILS 0.9 % (0.0-5.0); % LYMPHOCYTES 24.4 % (20.0-50.0); % MONOCYTES 13.4 % (2.0-10.0); % NEUTROPHILS 61.2 % (40.0-80.0); EOSINOPHILE ABSOLUTE 0.1 Th/cmm (0.1-0.4); HEMATOCRIT 47.3 % (41.0-60); HEMOGLOBIN 15.6 gm/dL (12-16); LYMPHOCYTE ABSOLUTE 2.8 Th/cmm (1.5-3.0); MEAN CORPUSCULAR HGB CONC 32.9 pg (28.0-36.0); MEAN PLATELET VOLUME 9.5 fl; MONOCYTE ABSOLUTE 1.5 Th/cmm (0.3-1.0); PLATELET COUNT 65 Th/cmm (150-400); RED BLOOD COUNT 5.37 Mil/cmm (4.30-5.70); RED CELL DISTRIBUTION WIDTH 13.4 % (11.5-20.0); WHITE BLOOD COUNT 11.4 Th/cmm (4.8-10.8)
[2018-01-08] MEDS: INSULIN ASPART SLIDING SCALE 100 UNITS/ML UNIT SUBQ SCH ×3 (06:40→22:21)
[2018-01-08 07:06] LABS: ALBUMIN 3.9 gm/dL (4.2-5.5); ANION GAP 15.9 (7.0-16.0); BILIRUBIN,TOTAL 0.8 mg/dL (0.3-1.0); CALCIUM SERUM 10.4 mg/dL (8.6-10.3); CARBON DIOXIDE 26.9 mEq/L (21.0-31.0); GFR AFRICAN-AMERICAN 44.1 ml/min (>90); GFR NON AFRICAN-AMERICAN 36.4 ml/min; MAGNESIUM 3.1 mg/dL (1.9-2.7); POTASSIUM SERUM 4.8 mEq/L (3.5-5.1)
--- NOTE | 2018-01-08 08:29 | Progress Notes ---
DATE: 01/08/2018 SUBJECTIVE: Chart reviewed and the patient interviewed. Also discussed the patient's condition with the staff and reviewed records and labs. The patient continued to be extremely agitated and in angry and in irritable mood. The patient also is aggressive with the staff and spitting and tries to hit staff. Also tried to leave and get out of bed. The patient had to be given Haldol injection multiple times yesterday to control his behavior, but he has been agitated and in angry and irritable mood. Also, during my interview, the patient is confused and unable to provide any safe plan for self-care. ASSESSMENT: The patient is still psychotic and agitated. TREATMENT PLAN: Advised the patient to take his medications orally. At the same time, we will give Ativan on a p.r.n. IV if needed as well as Haldol if needed and we will continue to follow up. JOB# [id number]
--- NOTE | 2018-01-08 08:59 | General Progress Note ---
Subjective - Review of Systems Subjective: Patient is seen and examined. Unable to get meaningful history. Objective - Results Result Diagrams: 01/08/18 05:20 01/08/18 05:20 Recent Labs: Laboratory Last Values WBC 11.4 Th/cmm (4.8-10.8) H 01/08/18 05:20 RBC 5.37 Mil/cmm (4.30-5.70) 01/08/18 05:20 Hgb 15.6 gm/dL (12-16) 01/08/18 05:20 Hct 47.3 % (41.0-60) 01/08/18 05:20 MCV 88.0 fl (80-99) 01/08/18 05:20 MCH 29.0 pg (26.0-30.0) 01/08/18 05:20 MCHC Differential 32.9 pg (28.0-36.0) 01/08/18 05:20 RDW 13.4 % (11.5-20.0) 01/08/18 05:20 Plt Count 65 Th/cmm (150-400) L 01/08/18 05:20 MPV 9.5 fl 01/08/18 05:20 Neutrophils % 61.2 % (40.0-80.0) 01/08/18 05:20 Lymphocytes % 24.4 % (20.0-50.0) 01/08/18 05:20 Monocytes % 13.4 % (2.0-10.0) H 01/08/18 05:20 Eosinophils % 0.9 % (0.0-5.0) 01/08/18 05:20 Basophils % 0.1 % (0.0-2.0) 01/08/18 05:20 Sodium 155 mEq/L (136-145) H 01/08/18 05:20 Potassium 4.8 mEq/L (3.5-5.1) 01/08/18 05:20 Chloride 117 mEq/L (98-107) H 01/08/18 05:20 Carbon Dioxide 26.9 mEq/L (21.0-31.0) 01/08/18 05:20 Anion Gap 15.9 (7.0-16.0) 01/08/18 05:20 BUN 61 mg/dL (7-25) H 01/08/18 05:20 Creatinine 2.0 mg/dL (0.7-1.3) H 01/08/18 05:20 Est GFR ( Amer) 44.1 ml/min (>90) 01/08/18 05:20 Est GFR (Non-Af Amer) 36.4 ml/min 01/08/18 05:20 BUN/Creatinine Ratio 30.5 01/08/18 05:20 Glucose 113 mg/dL (70-105) H 01/08/18 05:20 POC Glucose 120 MG/DL (70-105) H 01/08/18 06:15 Hemoglobin A1c % 5.8 % (4.0-6.0) 01/06/18 06:00 Calcium 10.4 mg/dL (8.6-10.3) H 01/08/18 05:20 Magnesium 3.1 mg/dL (1.9-2.7) H 01/08/18 05:20 Total Bilirubin 0.8 mg/dL (0.3-1.0) 01/08/18 05:20 AST 40 U/L (13-39) H 01/08/18 05:20 ALT 27 U/L (7-52) 01/08/18 05:20 Alkaline Phosphatase 71 U/L (34-104) 01/08/18 05:20 Total Protein 8.0 gm/dL (6.0-8.3) 01/08/18 05:20 Albumin 3.9 gm/dL (4.2-5.5) L 01/08/18 05:20 Globulin 4.1 gm/dL 01/08/18 05:20 Albumin/Globulin Ratio 1.0 (1.0-1.8) 01/08/18 05:20 TSH 0.82 uIU/ml (0.34-5.60) 01/06/18 14:27 Urine Source RANDOM 01/06/18 01:00 Urine Color YELLOW 01/06/18 01:00 Urine Clarity CLEAR (CLEAR) 01/06/18 01:00 Urine pH 5.5 (4.6 - 8.0) 01/06/18 01:00 Ur Specific [place] 1.020 (1.005-1.030) 01/06/18 01:00 Urine Protein NEGATIVE mg/dL (NEGATIVE) 01/06/18 01:00 Urine Glucose (UA) NEGATIVE mg/dL (NEGATIVE) 01/06/18 01:00 Urine Ketones NEGATIVE mg/dL (NEGATIVE) 01/06/18 01:00 Urine Blood NEGATIVE (NEGATIVE) 01/06/18 01:00 Urine Nitrate NEGATIVE (NEGATIVE) 01/06/18 01:00 Urine Bilirubin NEGATIVE (NEGATIVE) 01/06/18 01:00 Urine Urobilinogen 0.2 E.U./dL (0.2 - 1.0) 01/06/18 01:00 Ur Leukocyte Esterase NEGATIVE (NEGATIVE) 01/06/18 01:00 Urine RBC NONE SEEN /hpf (0-5) 01/06/18 01:00 Urine WBC NONE SEEN /hpf (0-5) 01/06/18 01:00 Ur Epithelial Cells NONE SEEN /lpf (FEW) 01/06/18 01:00 Urine Bacteria NONE SEEN /hpf (NONE SEEN) 01/06/18 01:00 - Physical Exam Vitals and I&O: Vital Signs Temp 98 F 01/08/18 04:00 Pulse 89 01/08/18 04:00 Resp 18 01/08/18 04:00 BP 133/76 01/08/18 04:00 Pulse Ox 97 01/08/18 04:00 Intake & Output 01/07/18 01/08/18 01/08/18 18:59 06:59 18:59 Intake Total 1240 1000 Balance 1240 1000 Weight (lbs) 72.575 kg Intake: Intake, IV Amount 1000 1000 Dextrose 5% 1,000 ml @ 1000 1000 150 mls/hr IV .Q6H40M [facility] Rx#:[id number] Oral 240 Other: # Voids 3 # Bowel Movements 0 Active Medications: Current Medications Acetaminophen (Tylenol) 650 mg PO Q4HR PRN PRN Reason: Pain Or Fever above 101 Stop: 03/06/18 16:07 Atorvastatin Calcium (Lipitor) 40 mg PO HS [facility] PRN Reason: Protocol Stop: 03/06/18 20:59 Last Admin: 01/07/18 21:43 Dose: 40 mg Diltiazem HCl (Cardizem) 120 mg PO Q12HR [facility] Stop: 03/06/18 20:59 Last Admin: 01/07/18 21:46 Dose: 120 mg Divalproex Sodium (Depakote Dr) 500 mg PO HS [facility] PRN Reason: Protocol Stop: 03/06/18 20:59 Last Admin: 01/07/18 21:45 Dose: 500 mg Docusate Sodium (Colace) 100 mg PO BID [facility] Stop: 03/06/18 16:59 Last Admin: 01/07/18 16:22 Dose: 100 mg Haloperidol Lactate (Haldol) 5 mg IM Q6HR PRN PRN Reason: Agitation Stop: 03/08/18 07:21 Last Admin: 01/07/18 16:20 Dose: 5 mg Ceftriaxone Sodium 1 gm/ (Sodium Chloride) 50 mls @ 100 mls/hr IV Q24HR [facility] Stop: 03/06/18 17:59 Last Admin: 01/07/18 17:31 Dose: 100 mls/hr Dextrose (D5w) 1,000 mls @ 150 mls/hr IV .Q6H40M [facility] Stop: 03/07/18 13:43 Last Admin: 01/07/18 22:03 Dose: 150 mls/hr Insulin Aspart (Novolog Insulin Sliding Scale) 0 units SUBQ ACHS [facility] PRN Reason: Protocol Stop: 03/06/18 16:29 Last Admin: 01/08/18 06:40 Dose: Not Given Lorazepam (Ativan) 0.5 mg PO Q4HR PRN; Protocol PRN Reason: Agitation Stop: 03/07/18 20:36 Last Admin: 01/07/18 05:46 Dose: 0.5 mg Lorazepam (Ativan) 1 mg IVP Q4HR PRN; Protocol PRN Reason: Agitation Stop: 03/09/18 08:53 Magnesium Hydroxide (Milk Of Magnesia) 30 ml PO HS PRN PRN Reason: Constipation Stop: 03/06/18 15:52 Memantine (Namenda) 10 mg PO BID [facility] Stop: 03/06/18 16:59 Last Admin: 01/07/18 16:23 Dose: 10 mg Metoprolol Tartrate (Lopressor) 25 mg PO BID [facility] Stop: 03/06/18 16:59 Last Admin: 01/07/18 16:22 Dose: 25 mg Multivitamins/Vitamin C (Theragran) 1 tab PO DAILY [facility] Stop: 03/07/18 08:59 Last Admin: 01/07/18 09:35 Dose: Not Given Olanzapine (Zyprexa) 10 mg PO BID [facility] PRN Reason: Protocol Stop: 03/06/18 16:59 Last Admin: 01/07/18 16:22 Dose: 10 mg Quetiapine Fumarate (Seroquel) 12.5 mg PO BID [facility] PRN Reason: Protocol Stop: 03/08/18 08:59 Last Admin: 01/07/18 16:23 Dose: 12.5 mg Quetiapine Fumarate (Seroquel) 50 mg PO HS [facility] PRN Reason: Protocol Stop: 03/08/18 20:59 Last Admin: 01/07/18 21:44 Dose: 50 mg Zolpidem Tartrate (Ambien) 5 mg PO HS PRN PRN Reason: Insomnia Stop: 03/06/18 15:48 Last Admin: 01/07/18 22:04 Dose: 5 mg General: Alert, No acute distress (Confused.) HEENT: Atraumatic, PERRLA, EOMI, Other (dry oral mucosa) Neck: Supple, JVD Cardiovascular: Regular rate, Normal S1, Normal S2 Lungs: Clear to auscultation Abdomen: Bowel sounds, Soft Neurological: Other (confused. Does not follow directions) Psych/Mental Status: Other (labile.) Assessment/Plan - Assessment Assessment: Hypernatremia ALOC DM HTN ARCHIE + CKD Psych disorder DJD Fall risk Hyperlipedemia. - Plan Plan: 1:1 sitter. IVF. Monitor lab. Monitor glucose and vitals Monitor behavior General nursing care. IV antibiotics Fall precautions. Medication management. Chronic disease management General nursing care Symptoms control Continue current care Discussed with Staff.
[2018-01-08] MEDS: Multivitamin Tab PO SCH (09:30)
[2018-01-08] MEDS: Diltiazem 30 mg Tab PO SCH ×2 (09:30→22:20)
[2018-01-08] MEDS: Dextrose 5% 1,000 ML IV SCH (09:47)
--- NOTE | 2018-01-08 13:43 | Diagnostic Imaging Report ---
Renal ultrasound HISTORY: Renal failure. COMPARISON: None Technique: Sonography of the kidneys and urinary bladder was performed in multiple planes. FINDINGS: The right kidney measures 9.0 x 5.0 cm. The left kidney measures 9.5 x 5.2 cm. There is sonolucent area within the left mid kidney measuring with 1.8 x 2.0 cm with acoustic enhancement. No hydronephrosis. There is increased echogenicity of both kidneys. Distended urinary bladder is noted. Patient was incontinent and postvoid residuals were not able to be obtained. No definite urinary bladder wall thickening. IMPRESSION: No evidence of hydronephrosis. Increased echogenicity of the kidneys which may be due to underlying medical renal disease. Left renal 2.0 x 1.8 cm lesion most suggestive of a cyst. Short-term follow-up may be obtained.
--- NOTE | 2018-01-08 16:06 | General Progress Note ---
Subjective - Review of Systems Service Date: 01/08/18 Subjective: pt seen and examined Objective - Results Result Diagrams: 01/08/18 05:20 01/08/18 05:20 Recent Labs: Laboratory Last Values WBC 11.4 Th/cmm (4.8-10.8) H 01/08/18 05:20 RBC 5.37 Mil/cmm (4.30-5.70) 01/08/18 05:20 Hgb 15.6 gm/dL (12-16) 01/08/18 05:20 Hct 47.3 % (41.0-60) 01/08/18 05:20 MCV 88.0 fl (80-99) 01/08/18 05:20 MCH 29.0 pg (26.0-30.0) 01/08/18 05:20 MCHC Differential 32.9 pg (28.0-36.0) 01/08/18 05:20 RDW 13.4 % (11.5-20.0) 01/08/18 05:20 Plt Count 65 Th/cmm (150-400) L 01/08/18 05:20 MPV 9.5 fl 01/08/18 05:20 Neutrophils % 61.2 % (40.0-80.0) 01/08/18 05:20 Lymphocytes % 24.4 % (20.0-50.0) 01/08/18 05:20 Monocytes % 13.4 % (2.0-10.0) H 01/08/18 05:20 Eosinophils % 0.9 % (0.0-5.0) 01/08/18 05:20 Basophils % 0.1 % (0.0-2.0) 01/08/18 05:20 Sodium 155 mEq/L (136-145) H 01/08/18 05:20 Potassium 4.8 mEq/L (3.5-5.1) 01/08/18 05:20 Chloride 117 mEq/L (98-107) H 01/08/18 05:20 Carbon Dioxide 26.9 mEq/L (21.0-31.0) 01/08/18 05:20 Anion Gap 15.9 (7.0-16.0) 01/08/18 05:20 BUN 61 mg/dL (7-25) H 01/08/18 05:20 Creatinine 2.0 mg/dL (0.7-1.3) H 01/08/18 05:20 Est GFR ( Amer) 44.1 ml/min (>90) 01/08/18 05:20 Est GFR (Non-Af Amer) 36.4 ml/min 01/08/18 05:20 BUN/Creatinine Ratio 30.5 01/08/18 05:20 Glucose 113 mg/dL (70-105) H 01/08/18 05:20 POC Glucose 142 MG/DL (70 - 105) H 01/08/18 11:32 Hemoglobin A1c % 5.8 % (4.0-6.0) 01/06/18 06:00 Calcium 10.4 mg/dL (8.6-10.3) H 01/08/18 05:20 Magnesium 3.1 mg/dL (1.9-2.7) H 01/08/18 05:20 Total Bilirubin 0.8 mg/dL (0.3-1.0) 01/08/18 05:20 AST 40 U/L (13-39) H 01/08/18 05:20 ALT 27 U/L (7-52) 01/08/18 05:20 Alkaline Phosphatase 71 U/L (34-104) 01/08/18 05:20 Total Protein 8.0 gm/dL (6.0-8.3) 01/08/18 05:20 Albumin 3.9 gm/dL (4.2-5.5) L 01/08/18 05:20 Globulin 4.1 gm/dL 01/08/18 05:20 Albumin/Globulin Ratio 1.0 (1.0-1.8) 01/08/18 05:20 TSH 0.82 uIU/ml (0.34-5.60) 01/06/18 14:27 Urine Source RANDOM 01/06/18 01:00 Urine Color YELLOW 01/06/18 01:00 Urine Clarity CLEAR (CLEAR) 01/06/18 01:00 Urine pH 5.5 (4.6 - 8.0) 01/06/18 01:00 Ur Specific [place] 1.020 (1.005-1.030) 01/06/18 01:00 Urine Protein NEGATIVE mg/dL (NEGATIVE) 01/06/18 01:00 Urine Glucose (UA) NEGATIVE mg/dL (NEGATIVE) 01/06/18 01:00 Urine Ketones NEGATIVE mg/dL (NEGATIVE) 01/06/18 01:00 Urine Blood NEGATIVE (NEGATIVE) 01/06/18 01:00 Urine Nitrate NEGATIVE (NEGATIVE) 01/06/18 01:00 Urine Bilirubin NEGATIVE (NEGATIVE) 01/06/18 01:00 Urine Urobilinogen 0.2 E.U./dL (0.2 - 1.0) 01/06/18 01:00 Ur Leukocyte Esterase NEGATIVE (NEGATIVE) 01/06/18 01:00 Urine RBC NONE SEEN /hpf (0-5) 01/06/18 01:00 Urine WBC NONE SEEN /hpf (0-5) 01/06/18 01:00 Ur Epithelial Cells NONE SEEN /lpf (FEW) 01/06/18 01:00 Urine Bacteria NONE SEEN /hpf (NONE SEEN) 01/06/18 01:00 - Physical Exam Vitals and I&O: Vital Signs Temp 96.8 F 01/08/18 15:46 Pulse 81 01/08/18 15:46 Resp 18 01/08/18 15:46 BP 101/73 01/08/18 15:46 Pulse Ox 97 01/08/18 15:46 Intake & Output 01/07/18 01/08/18 01/08/18 18:59 06:59 18:59 Intake Total 1240 1999 Balance 1240 1999 Weight (lbs) 72.575 kg Intake: Intake, IV Amount 1000 2000 Dextrose 5% 1,000 ml @ 1000 2000 150 mls/hr IV .Q6H40M [facility] Rx#:[id number] Oral 240 Other: # Voids 3 # Bowel Movements 0 Active Medications: Current Medications Acetaminophen (Tylenol) 650 mg PO Q4HR PRN PRN Reason: Pain Or Fever above 101 Stop: 03/06/18 16:07 Atorvastatin Calcium (Lipitor) 40 mg PO HS [facility] PRN Reason: Protocol Stop: 03/06/18 20:59 Last Admin: 01/07/18 21:43 Dose: 40 mg Diltiazem HCl (Cardizem) 120 mg PO Q12HR [facility] Stop: 03/06/18 20:59 Last Admin: 01/08/18 09:30 Dose: Not Given Divalproex Sodium (Depakote Dr) 500 mg PO HS [facility] PRN Reason: Protocol Stop: 03/06/18 20:59 Last Admin: 01/07/18 21:45 Dose: 500 mg Docusate Sodium (Colace) 100 mg PO BID [facility] Stop: 03/06/18 16:59 Last Admin: 01/08/18 09:30 Dose: Not Given Haloperidol Lactate (Haldol) 5 mg IM Q6HR PRN PRN Reason: Agitation Stop: 03/08/18 07:21 Last Admin: 01/07/18 16:20 Dose: 5 mg Ceftriaxone Sodium 1 gm/ (Sodium Chloride) 50 mls @ 100 mls/hr IV Q24HR K[facility] Stop: 03/06/18 17:59 Last Admin: 01/07/18 17:31 Dose: 100 mls/hr Dextrose (D5w) 1,000 mls @ 150 mls/hr IV .Q6H40M [facility] Stop: 03/07/18 13:43 Last Admin: 01/08/18 09:47 Dose: 150 mls/hr Insulin Aspart (Novolog Insulin Sliding Scale) 0 units SUBQ ACHS KAYODE PRN Reason: Protocol Stop: 03/06/18 16:29 Last Admin: 01/08/18 12:12 Dose: Not Given Lorazepam (Ativan) 0.5 mg PO Q4HR PRN; Protocol PRN Reason: Agitation Stop: 03/07/18 20:36 Last Admin: 01/07/18 05:46 Dose: 0.5 mg Lorazepam (Ativan) 1 mg IVP Q4HR PRN; Protocol PRN Reason: Agitation Stop: 03/09/18 08:53 Last Admin: 01/08/18 10:59 Dose: 1 mg Magnesium Hydroxide (Milk Of Magnesia) 30 ml PO HS PRN PRN Reason: Constipation Stop: 03/06/18 15:52 Memantine (Namenda) 10 mg PO BID [facility] Stop: 03/06/18 16:59 Last Admin: 01/08/18 09:30 Dose: Not Given Metoprolol Tartrate (Lopressor) 25 mg PO BID [facility] Stop: 03/06/18 16:59 Last Admin: 01/08/18 09:30 Dose: Not Given Multivitamins/Vitamin C (Theragran) 1 tab PO DAILY [facility] Stop: 03/07/18 08:59 Last Admin: 01/08/18 09:30 Dose: Not Given Olanzapine (Zyprexa) 10 mg PO BID [facility] PRN Reason: Protocol Stop: 03/06/18 16:59 Last Admin: 01/08/18 09:30 Dose: Not Given Quetiapine Fumarate (Seroquel) 12.5 mg PO BID K[facility]ODE PRN Reason: Protocol Stop: 03/08/18 08:59 Last Admin: 01/08/18 09:30 Dose: Not Given Quetiapine Fumarate (Seroquel) 50 mg PO HS KAYODE PRN Reason: Protocol Stop: 03/08/18 20:59 Last Admin: 01/07/18 21:44 Dose: 50 mg Zolpidem Tartrate (Ambien) 5 mg PO HS PRN PRN Reason: Insomnia Stop: 03/06/18 15:48 Last Admin: 01/07/18 22:04 Dose: 5 mg General: Alert, No acute distress (Confused.) HEENT: Atraumatic, PERRLA, EOMI, Other (dry oral mucosa) Neck: Supple, JVD Cardiovascular: Regular rate, Normal S1, Normal S2 Lungs: Clear to auscultation Abdomen: Bowel sounds, Soft Neurological: Other (confused. Does not follow directions) Psych/Mental Status: Other (labile.) Assessment/Plan - Assessment Assessment: 1. ALOC 2. Hypernatremia 3. ARCHIE 4. Psyche history. Confused at this time. 5. SZD 6. DM 7. HTN - Plan Plan: Continue D5W Monitor glucose Will recheck labs in am. Continue meds for DM, HTN, SZD. Continue psyche meds.
[2018-01-08] MEDS: cefTRIAXone 1 GM in Sodium Chloride 0.9% 50 ML IV SCH (18:32)
[2018-01-08 21:34] VITALS: BP 130/68
[2018-01-08] MEDS: Atorvastatin Calcium 10 MG TAB PO SCH (22:21)
[2018-01-09 07:03] LABS: ALB/GLOB RATIO 0.9 (1.0-1.8); ALBUMIN 3.7 gm/dL (4.2-5.5); ANION GAP 14.9 (7.0-16.0); BILIRUBIN,TOTAL 0.8 mg/dL (0.3-1.0); CALCIUM SERUM 10.1 mg/dL (8.6-10.3); CARBON DIOXIDE 25.5 mEq/L (21.0-31.0); CREATININE - SERUM 1.8 mg/dL (0.7-1.3); GFR AFRICAN-AMERICAN 49.7 ml/min (>90); GFR NON AFRICAN-AMERICAN 41.1 ml/min; POTASSIUM SERUM 4.4 mEq/L (3.5-5.1); TOTAL PROTEIN,SERUM 7.7 gm/dL (6.0-8.3)
[2018-01-09 07:14] LABS: % BASOPHILS 0.2 % (0.0-2.0); % EOSINOPHILS 0.8 % (0.0-5.0); % LYMPHOCYTES 18.3 % (20.0-50.0); % MONOCYTES 9.4 % (2.0-10.0); % NEUTROPHILS 71.3 % (40.0-80.0); EOSINOPHILE ABSOLUTE 0.1 Th/cmm (0.1-0.4); HEMATOCRIT 45.9 % (41.0-60); HEMOGLOBIN 15.1 gm/dL (12-16); LYMPHOCYTE ABSOLUTE 2.7 Th/cmm (1.5-3.0); MEAN CELL VOLUME 87.8 fl (80-99); MEAN CORPUSCULAR HEMOGLOBIN 28.8 pg (26.0-30.0); MEAN CORPUSCULAR HGB CONC 32.8 pg (28.0-36.0); MONOCYTE ABSOLUTE 1.4 Th/cmm (0.3-1.0); NEUTROPHILE ABSOLUTE 10.3 Th/cmm (1.8-8.0); PLATELET COUNT 100 Th/cmm (150-400); RED BLOOD COUNT 5.23 Mil/cmm (4.30-5.70); RED CELL DISTRIBUTION WIDTH 13.2 % (11.5-20.0)
[2018-01-09 07:19] LABS: WHITE BLOOD COUNT 14.5 Th/cmm (4.8-10.8)
[2018-01-09] MEDS: INSULIN ASPART SLIDING SCALE 100 UNITS/ML UNIT SUBQ SCH ×4 (07:35→21:49)
--- NOTE | 2018-01-09 08:02 | Progress Notes ---
DATE: 01/09/2018 SUBJECTIVE: Chart reviewed and the patient interviewed. I also discussed the patient's condition with the staff and reviewed records and labs. The patient is still extremely agitated and restless and confused. The patient also is rambling with words, difficult to understand. Also is still unable to give any safe plan for self-care and he is still irritable and agitated. The patient also seems to be suspicious and paranoid. Otherwise, the patient is compliant with taking his medications with no side effects of medications. ASSESSMENT: The patient is still psychotic. TREATMENT PLAN: Continue to monitor his behavior and his condition closely and continue to follow up. JOB# [id number]
[2018-01-09] MEDS: Dextrose 5% 1,000 ML IV SCH ×2 (08:09→14:47)
--- NOTE | 2018-01-09 09:53 | General Progress Note ---
Subjective - Review of Systems Subjective: Patient is seen and examined. Unable to get meaningful history. Patient is still refusing to eat and drink. Objective - Results Result Diagrams: 01/09/18 06:20 01/09/18 06:20 Recent Labs: Laboratory Last Values WBC 14.5 Th/cmm (4.8-10.8) H 01/09/18 06:20 RBC 5.23 Mil/cmm (4.30-5.70) 01/09/18 06:20 Hgb 15.1 gm/dL (12-16) 01/09/18 06:20 Hct 45.9 % (41.0-60) 01/09/18 06:20 MCV 87.8 fl (80-99) 01/09/18 06:20 MCH 28.8 pg (26.0-30.0) 01/09/18 06:20 MCHC Differential 32.8 pg (28.0-36.0) 01/09/18 06:20 RDW 13.2 % (11.5-20.0) 01/09/18 06:20 Plt Count 100 Th/cmm (150-400) L 01/09/18 06:20 MPV 11.0 fl 01/09/18 06:20 Neutrophils % 71.3 % (40.0-80.0) 01/09/18 06:20 Lymphocytes % 18.3 % (20.0-50.0) L 01/09/18 06:20 Monocytes % 9.4 % (2.0-10.0) 01/09/18 06:20 Eosinophils % 0.8 % (0.0-5.0) 01/09/18 06:20 Basophils % 0.2 % (0.0-2.0) 01/09/18 06:20 Sodium 150 mEq/L (136-145) H 01/09/18 06:20 Potassium 4.4 mEq/L (3.5-5.1) 01/09/18 06:20 Chloride 114 mEq/L (98-107) H 01/09/18 06:20 Carbon Dioxide 25.5 mEq/L (21.0-31.0) 01/09/18 06:20 Anion Gap 14.9 (7.0-16.0) 01/09/18 06:20 BUN 52 mg/dL (7-25) H 01/09/18 06:20 Creatinine 1.8 mg/dL (0.7-1.3) H 01/09/18 06:20 Est GFR ( Amer) 49.7 ml/min (>90) 01/09/18 06:20 Est GFR (Non-Af Amer) 41.1 ml/min 01/09/18 06:20 BUN/Creatinine Ratio 28.9 01/09/18 06:20 Glucose 142 mg/dL (70-105) H 01/09/18 06:20 POC Glucose 144 MG/DL (70 - 105) H 01/09/18 06:30 Hemoglobin A1c % 5.8 % (4.0-6.0) 01/06/18 06:00 Calcium 10.1 mg/dL (8.6-10.3) 01/09/18 06:20 Magnesium 3.1 mg/dL (1.9-2.7) H 01/08/18 05:20 Total Bilirubin 0.8 mg/dL (0.3-1.0) 01/09/18 06:20 AST 49 U/L (13-39) H 01/09/18 06:20 ALT 40 U/L (7-52) 01/09/18 06:20 Alkaline Phosphatase 71 U/L (34-104) 01/09/18 06:20 Total Protein 7.7 gm/dL (6.0-8.3) 01/09/18 06:20 Albumin 3.7 gm/dL (4.2-5.5) L 01/09/18 06:20 Globulin 4.0 gm/dL 01/09/18 06:20 Albumin/Globulin Ratio 0.9 (1.0-1.8) L 01/09/18 06:20 TSH 0.82 uIU/ml (0.34-5.60) 01/06/18 14:27 Urine Source RANDOM 01/06/18 01:00 Urine Color YELLOW 01/06/18 01:00 Urine Clarity CLEAR (CLEAR) 01/06/18 01:00 Urine pH 5.5 (4.6 - 8.0) 01/06/18 01:00 Ur Specific [place] 1.020 (1.005-1.030) 01/06/18 01:00 Urine Protein NEGATIVE mg/dL (NEGATIVE) 01/06/18 01:00 Urine Glucose (UA) NEGATIVE mg/dL (NEGATIVE) 01/06/18 01:00 Urine Ketones NEGATIVE mg/dL (NEGATIVE) 01/06/18 01:00 Urine Blood NEGATIVE (NEGATIVE) 01/06/18 01:00 Urine Nitrate NEGATIVE (NEGATIVE) 01/06/18 01:00 Urine Bilirubin NEGATIVE (NEGATIVE) 01/06/18 01:00 Urine Urobilinogen 0.2 E.U./dL (0.2 - 1.0) 01/06/18 01:00 Ur Leukocyte Esterase NEGATIVE (NEGATIVE) 01/06/18 01:00 Urine RBC NONE SEEN /hpf (0-5) 01/06/18 01:00 Urine WBC NONE SEEN /hpf (0-5) 01/06/18 01:00 Ur Epithelial Cells NONE SEEN /lpf (FEW) 01/06/18 01:00 Urine Bacteria NONE SEEN /hpf (NONE SEEN) 01/06/18 01:00 - Physical Exam Vitals and I&O: Vital Signs Temp 98.1 F 01/09/18 06:00 Pulse 81 01/09/18 06:00 Resp 18 01/09/18 06:00 BP 115/72 01/09/18 06:00 Pulse Ox 98 01/09/18 06:00 Intake & Output 01/08/18 01/09/18 01/09/18 18:59 06:59 18:59 Intake Total 1000 350 Balance 1000 350 Weight (lbs) 72.575 kg Intake: Intake, IV Amount 1000 Dextrose 5% 1,000 ml @ 1000 150 mls/hr IV .Q6H40M [facility] Rx#:[id number] Oral 350 Other: # Voids 3 # Bowel Movements 0 Active Medications: Current Medications Acetaminophen (Tylenol) 650 mg PO Q4HR PRN PRN Reason: Pain Or Fever above 101 Stop: 03/06/18 16:07 Atorvastatin Calcium (Lipitor) 40 mg PO [facility] PRN Reason: Protocol Stop: 03/06/18 20:59 Last Admin: 01/08/18 22:21 Dose: 40 mg Diltiazem HCl (Cardizem) 120 mg PO Q12HR [facility] Stop: 03/06/18 20:59 Last Admin: 01/08/18 22:20 Dose: 120 mg Divalproex Sodium (Depakote Dr) 500 mg PO [facility] PRN Reason: Protocol Stop: 03/06/18 20:59 Last Admin: 01/08/18 22:20 Dose: 500 mg Docusate Sodium (Colace) 100 mg PO BID [facility] Stop: 03/06/18 16:59 Last Admin: 01/08/18 16:20 Dose: 100 mg Haloperidol Lactate (Haldol) 5 mg IM Q6HR PRN PRN Reason: Agitation Stop: 03/08/18 07:21 Last Admin: 01/07/18 16:20 Dose: 5 mg Ceftriaxone Sodium 1 gm/ (Sodium Chloride) 50 mls @ 100 mls/hr IV Q24HR [facility] Stop: 03/06/18 17:59 Last Admin: 01/08/18 18:32 Dose: 100 mls/hr Dextrose (D5w) 1,000 mls @ 150 mls/hr IV .Q6H40M [facility] Stop: 03/07/18 13:43 Last Admin: 01/09/18 08:09 Dose: 150 mls/hr Insulin Aspart (Novolog Insulin Sliding Scale) 0 units SUBQ ACHS [facility] PRN Reason: Protocol Stop: 03/06/18 16:29 Last Admin: 01/09/18 07:35 Dose: Not Given Lorazepam (Ativan) 0.5 mg PO Q4HR PRN; Protocol PRN Reason: Agitation Stop: 03/07/18 20:36 Last Admin: 01/07/18 05:46 Dose: 0.5 mg Lorazepam (Ativan) 1 mg IVP Q4HR PRN; Protocol PRN Reason: Agitation Stop: 03/09/18 08:53 Last Admin: 01/08/18 10:59 Dose: 1 mg Magnesium Hydroxide (Milk Of Magnesia) 30 ml PO HS PRN PRN Reason: Constipation Stop: 03/06/18 15:52 Memantine (Namenda) 10 mg PO BID [facility] Stop: 03/06/18 16:59 Last Admin: 01/08/18 16:20 Dose: 10 mg Metoprolol Tartrate (Lopressor) 25 mg PO BID [facility] Stop: 03/06/18 16:59 Last Admin: 01/08/18 16:20 Dose: 25 mg Multivitamins/Vitamin C (Theragran) 1 tab PO DAILY [facility] Stop: 03/07/18 08:59 Last Admin: 01/08/18 09:30 Dose: Not Given Olanzapine (Zyprexa) 10 mg PO BID [facility] PRN Reason: Protocol Stop: 03/06/18 16:59 Last Admin: 01/08/18 16:20 Dose: 10 mg Quetiapine Fumarate (Seroquel) 12.5 mg PO BID [facility] PRN Reason: Protocol Stop: 03/08/18 08:59 Last Admin: 01/08/18 16:19 Dose: 12.5 mg Quetiapine Fumarate (Seroquel) 50 mg PO HS [facility] PRN Reason: Protocol Stop: 03/08/18 20:59 Last Admin: 01/08/18 22:20 Dose: 50 mg Zolpidem Tartrate (Ambien) 5 mg PO HS PRN PRN Reason: Insomnia Stop: 03/06/18 15:48 Last Admin: 01/08/18 22:21 Dose: 5 mg General: Alert, No acute distress (Confused.) HEENT: Atraumatic, PERRLA, EOMI, Other (dry oral mucosa) Neck: Supple, JVD Cardiovascular: Regular rate, Normal S1, Normal S2 Lungs: Clear to auscultation Abdomen: Bowel sounds, Soft Neurological: Other (confused. Does not follow directions) Psych/Mental Status: Other (labile.) Assessment/Plan - Assessment Assessment: Hypernatremia improving slowly. ALOC due to metabolic encephalopathy. DM HTN ARCHIE + CKD Psych disorder exacerbation. DJD Fall risk Hyperlipedemia. - Plan Plan: 1:1 sitter. IVF. Monitor lab. Monitor glucose and vitals Monitor behavior. Psych meds and follow up. General nursing care. IV antibiotics as ordered. Fall precautions. Medication management. Chronic disease management General nursing care Symptoms control Continue current care Discussed with Staff. Nutritional Asmnt/Malnutr-PDOC - Dietary Evaluation Malnutrition Findings (Please click <Entered> for more info): Nutritional Asmnt/Malnutrition Start: 01/08/18 17: 05 Text: Status: Complete Freq: Document 01/08/18 17:07 [place] (Rec: 01/08/18 17:31 [email or web address]) Nutritional Asmnt/Malnutrition Patient General Information Nutritional Screening High Risk Diagnosis acute renal failure Pertinent Medical Hx/Surgical Hx HTN, hyperlipidemia, psychosis , dementia, DJD Subjective Information Pt was transfered from [facility].Pt seen sleeping in nato-chair in his room. Pt is combative, on 1:1 sitter. Per RN, PO intake varied d/t mental status. Per EMR, PO intake 0-75%. Current Diet Order/ Nutrition Support CCHO 60gm Pertinent Medications D5w, colace, novolog, theragran, seroquel Pertinent Labs 01/08 Na 155, K 4.8, cl 117, BUN 61, Cr 2.0, glucose 113, POC 120-125 Nutritional Hx/Data Height 1.93 m Height (Calculated Centimeters) 193.0 Current Weight (lbs) 72.575 kg Weight (Calculated Kilograms) 72.6 Weight (Calculated Grams) 14924.8 [place] Body Weight 202 Body Mass Index (BMI) 19.5 Weight Status Approriate GI Symptoms GI Symptoms None Last BM 0 Difficult in: None Skin Integrity/Comment: intact Current %PO Fair (50-74%) Estimated Nutritional Goals BEE in Kcals: Using Current wt Calories/Kcals/Kg 25-30 Kcals Calculated 8151-2232 Protein: Using Current wt Protein g/k.8 Protein Calculated 58 Fluid: ml 1825-2190ml (1ml/kcal) Nutritional Problem 1. Problem Problem altered nutrition related labs Etiology acute renal failure Signs/Symptoms: Na 155, BUN 61, Cr 2.0 Malnutrition Alert Protein-Calorie Malnutrition N/A Is there a minimum of two criteria No selected? Query Text:Check all the applicable criteria. A minimum of two criteria are recommended for diagnosis of either severe or non-severe malnutrition. Intervention/Recommendation Comments 1. Recommend adding renal diet considering acute renal failure with elevated Na, BUN, Cr. 2. Monitor PO intake, wt, labs and skin integrity 3. F/U as high risk in 2-3 days, 01/10-01/11 Expected Outcomes/Goals Expected Outcomes/Goals 1. PO intake to meet at least 75% of nutritional needs. 2. Wt stability, skin to remain intact, labs to approach WNL.
[2018-01-09] MEDS: Multivitamin Tab PO SCH (10:03)
[2018-01-09] MEDS: Diltiazem 30 mg Tab PO SCH ×2 (10:04→21:11)
--- NOTE | 2018-01-09 11:45 | General Progress Note ---
Subjective - Review of Systems Service Date: 01/09/18 Subjective: pt seen and examined not able to get info Objective - Results Result Diagrams: 01/09/18 06:20 01/09/18 06:20 Recent Labs: Laboratory Last Values WBC 14.5 Th/cmm (4.8-10.8) H 01/09/18 06:20 RBC 5.23 Mil/cmm (4.30-5.70) 01/09/18 06:20 Hgb 15.1 gm/dL (12-16) 01/09/18 06:20 Hct 45.9 % (41.0-60) 01/09/18 06:20 MCV 87.8 fl (80-99) 01/09/18 06:20 MCH 28.8 pg (26.0-30.0) 01/09/18 06:20 MCHC Differential 32.8 pg (28.0-36.0) 01/09/18 06:20 RDW 13.2 % (11.5-20.0) 01/09/18 06:20 Plt Count 100 Th/cmm (150-400) L 01/09/18 06:20 MPV 11.0 fl 01/09/18 06:20 Neutrophils % 71.3 % (40.0-80.0) 01/09/18 06:20 Lymphocytes % 18.3 % (20.0-50.0) L 01/09/18 06:20 Monocytes % 9.4 % (2.0-10.0) 01/09/18 06:20 Eosinophils % 0.8 % (0.0-5.0) 01/09/18 06:20 Basophils % 0.2 % (0.0-2.0) 01/09/18 06:20 Sodium 150 mEq/L (136-145) H 01/09/18 06:20 Potassium 4.4 mEq/L (3.5-5.1) 01/09/18 06:20 Chloride 114 mEq/L (98-107) H 01/09/18 06:20 Carbon Dioxide 25.5 mEq/L (21.0-31.0) 01/09/18 06:20 Anion Gap 14.9 (7.0-16.0) 01/09/18 06:20 BUN 52 mg/dL (7-25) H 01/09/18 06:20 Creatinine 1.8 mg/dL (0.7-1.3) H 01/09/18 06:20 Est GFR ( Amer) 49.7 ml/min (>90) 01/09/18 06:20 Est GFR (Non-Af Amer) 41.1 ml/min 01/09/18 06:20 BUN/Creatinine Ratio 28.9 01/09/18 06:20 Glucose 142 mg/dL (70-105) H 01/09/18 06:20 POC Glucose 144 MG/DL (70 - 105) H 01/09/18 06:30 Hemoglobin A1c % 5.8 % (4.0-6.0) 01/06/18 06:00 Calcium 10.1 mg/dL (8.6-10.3) 01/09/18 06:20 Magnesium 3.1 mg/dL (1.9-2.7) H 01/08/18 05:20 Total Bilirubin 0.8 mg/dL (0.3-1.0) 01/09/18 06:20 AST 49 U/L (13-39) H 01/09/18 06:20 ALT 40 U/L (7-52) 01/09/18 06:20 Alkaline Phosphatase 71 U/L (34-104) 01/09/18 06:20 Total Protein 7.7 gm/dL (6.0-8.3) 01/09/18 06:20 Albumin 3.7 gm/dL (4.2-5.5) L 01/09/18 06:20 Globulin 4.0 gm/dL 01/09/18 06:20 Albumin/Globulin Ratio 0.9 (1.0-1.8) L 01/09/18 06:20 TSH 0.82 uIU/ml (0.34-5.60) 01/06/18 14:27 Urine Source RANDOM 01/06/18 01:00 Urine Color YELLOW 01/06/18 01:00 Urine Clarity CLEAR (CLEAR) 01/06/18 01:00 Urine pH 5.5 (4.6 - 8.0) 01/06/18 01:00 Ur Specific [place] 1.020 (1.005-1.030) 01/06/18 01:00 Urine Protein NEGATIVE mg/dL (NEGATIVE) 01/06/18 01:00 Urine Glucose (UA) NEGATIVE mg/dL (NEGATIVE) 01/06/18 01:00 Urine Ketones NEGATIVE mg/dL (NEGATIVE) 01/06/18 01:00 Urine Blood NEGATIVE (NEGATIVE) 01/06/18 01:00 Urine Nitrate NEGATIVE (NEGATIVE) 01/06/18 01:00 Urine Bilirubin NEGATIVE (NEGATIVE) 01/06/18 01:00 Urine Urobilinogen 0.2 E.U./dL (0.2 - 1.0) 01/06/18 01:00 Ur Leukocyte Esterase NEGATIVE (NEGATIVE) 01/06/18 01:00 Urine RBC NONE SEEN /hpf (0-5) 01/06/18 01:00 Urine WBC NONE SEEN /hpf (0-5) 01/06/18 01:00 Ur Epithelial Cells NONE SEEN /lpf (FEW) 01/06/18 01:00 Urine Bacteria NONE SEEN /hpf (NONE SEEN) 01/06/18 01:00 - Physical Exam Vitals and I&O: Vital Signs Temp 98.1 F 01/09/18 06:00 Pulse 117 01/09/18 10:04 Resp 18 01/09/18 06:00 BP 135/97 01/09/18 10:03 Pulse Ox 98 01/09/18 06:00 Intake & Output 01/08/18 01/09/18 01/09/18 18:59 06:59 18:59 Intake Total 1000 350 Balance 1000 350 Weight (lbs) 72.575 kg Intake: Intake, IV Amount 1000 Dextrose 5% 1,000 ml @ 1000 150 mls/hr IV .Q6H40M [facility] Rx#:[id number] Oral 350 Other: # Voids 3 # Bowel Movements 0 Active Medications: Current Medications Acetaminophen (Tylenol) 650 mg PO Q4HR PRN PRN Reason: Pain Or Fever above 101 Stop: 03/06/18 16:07 Atorvastatin Calcium (Lipitor) 40 mg PO HS [facility] PRN Reason: Protocol Stop: 03/06/18 20:59 Last Admin: 01/08/18 22:21 Dose: 40 mg Diltiazem HCl (Cardizem) 120 mg PO Q12HR [facility] Stop: 03/06/18 20:59 Last Admin: 01/09/18 10:04 Dose: Not Given Divalproex Sodium (Depakote Dr) 500 mg PO HS [facility] PRN Reason: Protocol Stop: 03/06/18 20:59 Last Admin: 01/08/18 22:20 Dose: 500 mg Docusate Sodium (Colace) 100 mg PO BID [facility] Stop: 03/06/18 16:59 Last Admin: 01/09/18 10:04 Dose: 100 mg Haloperidol Lactate (Haldol) 5 mg IM Q6HR PRN PRN Reason: Agitation Stop: 03/08/18 07:21 Last Admin: 01/07/18 16:20 Dose: 5 mg Ceftriaxone Sodium 1 gm/ (Sodium Chloride) 50 mls @ 100 mls/hr IV Q24HR [facility] Stop: 03/06/18 17:59 Last Admin: 01/08/18 18:32 Dose: 100 mls/hr Dextrose (D5w) 1,000 mls @ 150 mls/hr IV .Q6H40M [facility] Stop: 03/07/18 13:43 Last Admin: 01/09/18 08:09 Dose: 150 mls/hr Insulin Aspart (Novolog Insulin Sliding Scale) 0 units SUBQ ACHS [facility] PRN Reason: Protocol Stop: 03/06/18 16:29 Last Admin: 01/09/18 07:35 Dose: Not Given Lorazepam (Ativan) 0.5 mg PO Q4HR PRN; Protocol PRN Reason: Agitation Stop: 03/07/18 20:36 Last Admin: 01/07/18 05:46 Dose: 0.5 mg Lorazepam (Ativan) 1 mg IVP Q4HR PRN; Protocol PRN Reason: Agitation Stop: 03/09/18 08:53 Last Admin: 01/08/18 10:59 Dose: 1 mg Magnesium Hydroxide (Milk Of Magnesia) 30 ml PO HS PRN PRN Reason: Constipation Stop: 03/06/18 15:52 Memantine (Namenda) 10 mg PO BID [facility] Stop: 03/06/18 16:59 Last Admin: 01/09/18 10:03 Dose: 10 mg Metoprolol Tartrate (Lopressor) 25 mg PO BID [facility] Stop: 03/06/18 16:59 Last Admin: 01/09/18 10:03 Dose: 25 mg Multivitamins/Vitamin C (Theragran) 1 tab PO DAILY [facility] Stop: 03/07/18 08:59 Last Admin: 01/09/18 10:03 Dose: 1 tab Olanzapine (Zyprexa) 10 mg PO BID [facility] PRN Reason: Protocol Stop: 03/06/18 16:59 Last Admin: 01/09/18 10:03 Dose: 10 mg Quetiapine Fumarate (Seroquel) 12.5 mg PO BID [facility] PRN Reason: Protocol Stop: 03/08/18 08:59 Last Admin: 01/09/18 10:03 Dose: 12.5 mg Quetiapine Fumarate (Seroquel) 50 mg PO HS [facility] PRN Reason: Protocol Stop: 03/08/18 20:59 Last Admin: 01/08/18 22:20 Dose: 50 mg Zolpidem Tartrate (Ambien) 5 mg PO HS PRN PRN Reason: Insomnia Stop: 03/06/18 15:48 Last Admin: 01/08/18 22:21 Dose: 5 mg General: Alert, No acute distress (Confused.) HEENT: Atraumatic, PERRLA, EOMI, Other (dry oral mucosa) Neck: Supple, JVD Cardiovascular: Regular rate, Normal S1, Normal S2 Lungs: Clear to auscultation Abdomen: Bowel sounds, Soft Neurological: Other (confused. Does not follow directions) Psych/Mental Status: Other (labile.) Assessment/Plan - Assessment Assessment: 1. ALOC 2. Hypernatremia 3. ARCHIE 4. Psyche history. Confused at this time. 5. SZD 6. DM 7. HTN - Plan Plan: Continue IVF Monitor glucose Will recheck labs in am. Continue meds for DM, HTN, SZD. Continue psyche meds. Nutritional Asmnt/Malnutr-PDOC - Dietary Evaluation Malnutrition Findings (Please click <Entered> for more info): Nutritional Asmnt/Malnutrition Start: 01/08/18 17: 05 Text: Status: Complete Freq: Document 01/08/18 17:07 [place] (Rec: 01/08/18 17:31 SUSY [email or web address]) Nutritional Asmnt/Malnutrition Patient General Information Nutritional Screening High Risk Diagnosis acute renal failure Pertinent Medical Hx/Surgical Hx HTN, hyperlipidemia, psychosis , dementia, DJD Subjective Information Pt was transfered from [facility].Pt seen sleeping in nato-chair in his room. Pt is combative, on 1:1 sitter. Per RN, PO intake varied d/t mental status. Per EMR, PO intake 0-75%. Current Diet Order/ Nutrition Support CCHO 60gm Pertinent Medications D5w, colace, novolog, theragran, seroquel Pertinent Labs 01/08 Na 155, K 4.8, cl 117, BUN 61, Cr 2.0, glucose 113, POC 120-125 Nutritional Hx/Data Height 1.93 m Height (Calculated Centimeters) 193.0 Current Weight (lbs) 72.575 kg Weight (Calculated Kilograms) 72.6 Weight (Calculated Grams) 77337.8 [place] Body Weight 202 Body Mass Index (BMI) 19.5 Weight Status Approriate GI Symptoms GI Symptoms None Last BM 0 Difficult in: None Skin Integrity/Comment: intact Current %PO Fair (50-74%) Estimated Nutritional Goals BEE in Kcals: Using Current wt Calories/Kcals/Kg 25-30 Kcals Calculated 6540-1216 Protein: Using Current wt Protein g/k.8 Protein Calculated 58 Fluid: ml 1825-2190ml (1ml/kcal) Nutritional Problem 1. Problem Problem altered nutrition related labs Etiology acute renal failure Signs/Symptoms: Na 155, BUN 61, Cr 2.0 Malnutrition Alert Protein-Calorie Malnutrition N/A Is there a minimum of two criteria No selected? Query Text:Check all the applicable criteria. A minimum of two criteria are recommended for diagnosis of either severe or non-severe malnutrition. Intervention/Recommendation Comments 1. Recommend adding renal diet considering acute renal failure with elevated Na, BUN, Cr. 2. Monitor PO intake, wt, labs and skin integrity 3. F/U as high risk in 2-3 days, 01/10-01/11 Expected Outcomes/Goals Expected Outcomes/Goals 1. PO intake to meet at least 75% of nutritional needs. 2. Wt stability, skin to remain intact, labs to approach WNL.
[2018-01-09] MEDS: cefTRIAXone 1 GM in Sodium Chloride 0.9% 50 ML IV SCH (17:03)
[2018-01-09] MEDS: Atorvastatin Calcium 10 MG TAB PO SCH (21:11)
[2018-01-10] MEDS: Dextrose 5% 1,000 ML IV SCH ×3 (00:54→15:07)
[2018-01-10 05:51] LABS: % BASOPHILS 0.3 % (0.0-2.0); % EOSINOPHILS 1.1 % (0.0-5.0); % LYMPHOCYTES 18.9 % (20.0-50.0); % MONOCYTES 10.4 % (2.0-10.0); % NEUTROPHILS 69.3 % (40.0-80.0); EOSINOPHILE ABSOLUTE 0.1 Th/cmm (0.1-0.4); HEMATOCRIT 42.1 % (41.0-60); HEMOGLOBIN 13.8 gm/dL (12-16); LYMPHOCYTE ABSOLUTE 1.9 Th/cmm (1.5-3.0); MEAN CELL VOLUME 87.5 fl (80-99); MEAN CORPUSCULAR HEMOGLOBIN 28.7 pg (26.0-30.0); MEAN CORPUSCULAR HGB CONC 32.8 pg (28.0-36.0); MEAN PLATELET VOLUME 10.1 fl; PLATELET COUNT 114 Th/cmm (150-400); RED BLOOD COUNT 4.81 Mil/cmm (4.30-5.70); RED CELL DISTRIBUTION WIDTH 13.2 % (11.5-20.0)
[2018-01-10 06:11] LABS: ALBUMIN 3.4 gm/dL (4.2-5.5); ANION GAP 11.3 (7.0-16.0); BILIRUBIN,TOTAL 0.6 mg/dL (0.3-1.0); CALCIUM SERUM 9.7 mg/dL (8.6-10.3); CARBON DIOXIDE 26.7 mEq/L (21.0-31.0); CREATININE - SERUM 1.6 mg/dL (0.7-1.3); GFR NON AFRICAN-AMERICAN 47.1 ml/min; TOTAL PROTEIN,SERUM 6.9 gm/dL (6.0-8.3)
[2018-01-10] MEDS: INSULIN ASPART SLIDING SCALE 100 UNITS/ML UNIT SUBQ SCH ×5 (06:33→21:47)
[2018-01-10] MEDS: Diltiazem 30 mg Tab PO SCH ×2 (09:29→21:22)
[2018-01-10] MEDS: Multivitamin Tab PO SCH (09:30)
--- NOTE | 2018-01-10 11:08 | Progress Notes ---
DATE: SUBJECTIVE: Chart reviewed and the patient interviewed. Also discussed the patient's condition with the staff and reviewed records and labs. The patient is still agitated and actively hallucinating. The patient is talking to himself constantly and have difficulty following any of staff directions. The patient also has continued to take Zyprexa as well as Seroquel, but he is still hallucinating and is still agitated and aggressive with staff, especially during helping him with his ADLs. ASSESSMENT: The patient is still psychotic and aggressive. TREATMENT PLAN: We will continue monitoring his behavior and his condition closely. Also, we will increase Seroquel to 50 mg 3 times a day. Also, we will get valproic acid blood level and we will continue to follow up closely. JOB# [id number]
[2018-01-10] MEDS ORDERED: Probiotic Screen MC PRN (12:00)
--- NOTE | 2018-01-10 16:03 | General Progress Note ---
Subjective - Review of Systems Service Date: 01/10/18 Subjective: pt seen and examined. confused not able to get info Objective - Results Result Diagrams: 01/10/18 05:25 01/10/18 05:25 Recent Labs: Laboratory Last Values WBC 10.0 Th/cmm (4.8-10.8) 01/10/18 05:25 RBC 4.81 Mil/cmm (4.30-5.70) 01/10/18 05:25 Hgb 13.8 gm/dL (12-16) 01/10/18 05:25 Hct 42.1 % (41.0-60) 01/10/18 05:25 MCV 87.5 fl (80-99) 01/10/18 05:25 MCH 28.7 pg (26.0-30.0) 01/10/18 05:25 MCHC Differential 32.8 pg (28.0-36.0) 01/10/18 05:25 RDW 13.2 % (11.5-20.0) 01/10/18 05:25 Plt Count 114 Th/cmm (150-400) L 01/10/18 05:25 MPV 10.1 fl 01/10/18 05:25 Neutrophils % 69.3 % (40.0-80.0) 01/10/18 05:25 Lymphocytes % 18.9 % (20.0-50.0) L 01/10/18 05:25 Monocytes % 10.4 % (2.0-10.0) H 01/10/18 05:25 Eosinophils % 1.1 % (0.0-5.0) 01/10/18 05:25 Basophils % 0.3 % (0.0-2.0) 01/10/18 05:25 Sodium 145 mEq/L (136-145) 01/10/18 05:25 Potassium 4.0 mEq/L (3.5-5.1) 01/10/18 05:25 Chloride 111 mEq/L (98-107) H 01/10/18 05:25 Carbon Dioxide 26.7 mEq/L (21.0-31.0) 01/10/18 05:25 Anion Gap 11.3 (7.0-16.0) 01/10/18 05:25 BUN 36 mg/dL (7-25) H 01/10/18 05:25 Creatinine 1.6 mg/dL (0.7-1.3) H 01/10/18 05:25 Est GFR ( Amer) 57.0 ml/min (>90) 01/10/18 05:25 Est GFR (Non-Af Amer) 47.1 ml/min 01/10/18 05:25 BUN/Creatinine Ratio 22.5 01/10/18 05:25 Glucose 130 mg/dL (70-105) H 01/10/18 05:25 POC Glucose 133 MG/DL (70 - 105) H 01/10/18 11:25 Hemoglobin A1c % 5.8 % (4.0-6.0) 01/06/18 06:00 Calcium 9.7 mg/dL (8.6-10.3) 01/10/18 05:25 Magnesium 3.1 mg/dL (1.9-2.7) H 01/08/18 05:20 Total Bilirubin 0.6 mg/dL (0.3-1.0) 01/10/18 05:25 AST 41 U/L (13-39) H 01/10/18 05:25 ALT 30 U/L (7-52) 01/10/18 05:25 Alkaline Phosphatase 62 U/L (34-104) 01/10/18 05:25 Total Protein 6.9 gm/dL (6.0-8.3) 01/10/18 05:25 Albumin 3.4 gm/dL (4.2-5.5) L 01/10/18 05:25 Globulin 3.5 gm/dL 01/10/18 05:25 Albumin/Globulin Ratio 1.0 (1.0-1.8) 01/10/18 05:25 TSH 0.82 uIU/ml (0.34-5.60) 01/06/18 14:27 Urine Source RANDOM 01/06/18 01:00 Urine Color YELLOW 01/06/18 01:00 Urine Clarity CLEAR (CLEAR) 01/06/18 01:00 Urine pH 5.5 (4.6 - 8.0) 01/06/18 01:00 Ur Specific [place] 1.020 (1.005-1.030) 01/06/18 01:00 Urine Protein NEGATIVE mg/dL (NEGATIVE) 01/06/18 01:00 Urine Glucose (UA) NEGATIVE mg/dL (NEGATIVE) 01/06/18 01:00 Urine Ketones NEGATIVE mg/dL (NEGATIVE) 01/06/18 01:00 Urine Blood NEGATIVE (NEGATIVE) 01/06/18 01:00 Urine Nitrate NEGATIVE (NEGATIVE) 01/06/18 01:00 Urine Bilirubin NEGATIVE (NEGATIVE) 01/06/18 01:00 Urine Urobilinogen 0.2 E.U./dL (0.2 - 1.0) 01/06/18 01:00 Ur Leukocyte Esterase NEGATIVE (NEGATIVE) 01/06/18 01:00 Urine RBC NONE SEEN /hpf (0-5) 01/06/18 01:00 Urine WBC NONE SEEN /hpf (0-5) 01/06/18 01:00 Ur Epithelial Cells NONE SEEN /lpf (FEW) 01/06/18 01:00 Urine Bacteria NONE SEEN /hpf (NONE SEEN) 01/06/18 01:00 Valproic Acid 14.9 ug/mL (50.0-100.0) L 01/10/18 05:25 - Physical Exam Vitals and I&O: Vital Signs Temp 98.3 F 01/10/18 08:00 Pulse 125 01/10/18 09:30 Resp 20 01/10/18 08:00 BP 159/96 01/10/18 09:30 Pulse Ox 95 01/10/18 08:00 Intake & Output 01/09/18 01/10/18 01/10/18 18:59 06:59 18:59 Intake Total 1045 1050 2000 Balance 1045 1050 1999 Weight (lbs) 72.575 kg Intake: Intake, IV Amount 995 1050 2000 Dextrose 5% 1,000 ml @ 995 1000 2000 150 mls/hr IV .Q6H40M [facility] Rx#:[id number] cefTRIAXone 1 gm In 50 Sodium Chloride 0.9% 50 ml @ 100 mls/hr IV Q24HR [facility] Rx#:[id number] Oral 50 Tube Feeding 0 Other: # Voids 2 # Bowel Movements 1 Active Medications: Current Medications Acetaminophen (Tylenol) 650 mg PO Q4HR PRN PRN Reason: Pain Or Fever above 101 Stop: 03/06/18 16:07 Atorvastatin Calcium (Lipitor) 40 mg PO HS KAYODE PRN Reason: Protocol Stop: 03/06/18 20:59 Last Admin: 01/09/18 21:11 Dose: 40 mg Diltiazem HCl (Cardizem) 120 mg PO Q12HR [facility] Stop: 03/06/18 20:59 Last Admin: 01/10/18 09:29 Dose: 120 mg Divalproex Sodium (Depakote Dr) 500 mg PO HS K[facility]ODE PRN Reason: Protocol Stop: 03/06/18 20:59 Last Admin: 01/09/18 21:12 Dose: 500 mg Docusate Sodium (Colace) 100 mg PO BID [facility] Stop: 03/06/18 16:59 Last Admin: 01/10/18 09:30 Dose: 100 mg Haloperidol Lactate (Haldol) 5 mg IM Q6HR PRN PRN Reason: Agitation Stop: 03/08/18 07:21 Last Admin: 01/07/18 16:20 Dose: 5 mg Ceftriaxone Sodium 1 gm/ (Sodium Chloride) 50 mls @ 100 mls/hr IV Q24HR [facility] Stop: 03/06/18 17:59 Last Infusion: 01/09/18 22:35 Dose: Infused Dextrose (D5w) 1,000 mls @ 150 mls/hr IV .Q6H40M [facility] Stop: 03/07/18 13:43 Last Admin: 01/10/18 15:07 Dose: 150 mls/hr Insulin Aspart (Novolog Insulin Sliding Scale) 0 units SUBQ ACHS KAYODE PRN Reason: Protocol Stop: 03/06/18 16:29 Last Admin: 01/10/18 15:27 Dose: Not Given Lactobacillus Rhamnosus (Culturelle 15b) 1 each PO DAILY [facility] Stop: 03/12/18 08:59 Lorazepam (Ativan) 0.5 mg PO Q4HR PRN; Protocol PRN Reason: Agitation Stop: 03/07/18 20:36 Last Admin: 01/07/18 05:46 Dose: 0.5 mg Lorazepam (Ativan) 1 mg IVP Q4HR PRN; Protocol PRN Reason: Agitation Stop: 03/09/18 08:53 Last Admin: 01/09/18 22:39 Dose: 1 mg Magnesium Hydroxide (Milk Of Magnesia) 30 ml PO HS PRN PRN Reason: Constipation Stop: 03/06/18 15:52 Memantine (Namenda) 10 mg PO BID [facility] Stop: 03/06/18 16:59 Last Admin: 01/10/18 09:30 Dose: 10 mg Metoprolol Tartrate (Lopressor) 25 mg PO BID [facility] Stop: 03/06/18 16:59 Last Admin: 01/10/18 09:30 Dose: 25 mg Miscellaneous (Probiotic Screen) 1 ea MC PRN PRN PRN Reason: PROTOCOL Stop: 03/11/18 11:59 Multivitamins/Vitamin C (Theragran) 1 tab PO DAILY [facility]E Stop: 03/07/18 08:59 Last Admin: 01/10/18 09:30 Dose: 1 tab Olanzapine (Zyprexa) 10 mg PO BID K[facility]ODE PRN Reason: Protocol Stop: 03/06/18 16:59 Last Admin: 01/10/18 09:30 Dose: 10 mg Quetiapine Fumarate (Seroquel) 50 mg PO HS KAYODE PRN Reason: Protocol Stop: 03/08/18 20:59 Last Admin: 01/09/18 21:12 Dose: 50 mg Quetiapine Fumarate (Seroquel) 50 mg PO BID K[facility]ODE PRN Reason: Protocol Stop: 03/11/18 07:54 Last Admin: 01/10/18 09:30 Dose: 50 mg Zolpidem Tartrate (Ambien) 5 mg PO HS PRN PRN Reason: Insomnia Stop: 03/06/18 15:48 Last Admin: 01/08/18 22:21 Dose: 5 mg General: Alert, No acute distress (Confused.) HEENT: Atraumatic, PERRLA, EOMI, Other (dry oral mucosa) Neck: Supple, JVD Cardiovascular: Regular rate, Normal S1, Normal S2 Lungs: Clear to auscultation Abdomen: Bowel sounds, Soft Neurological: Other (confused. Does not follow directions) Psych/Mental Status: Other (labile.) Assessment/Plan - Assessment Assessment: 1. ALOC 2. Hypernatremia 3. ARCHIE 4. Psyche history. Confused at this time. 5. SZD 6. DM 7. HTN - Plan Plan: Continue IVF Monitor glucose Will recheck labs in am. Continue meds for DM, HTN, SZD. Continue psyche meds. Nutritional Asmnt/Malnutr-PDOC - Dietary Evaluation Malnutrition Findings (Please click <Entered> for more info): Nutritional Asmnt/Malnutrition Start: 03/20/18 17: 05 Text: Status: Complete Freq: Document 01/08/18 17:07 LCMARCIANOG (Rec: 01/08/18 17:31 LCMARCIANOG [email or web address]) Nutritional Asmnt/Malnutrition Patient General Information Nutritional Screening High Risk Diagnosis acute renal failure Pertinent Medical Hx/Surgical Hx HTN, hyperlipidemia, psychosis , dementia, DJD Subjective Information Pt was transfered from [facility].Pt seen sleeping in nato-chair in his room. Pt is combative, on 1:1 sitter. Per RN, PO intake varied d/t mental status. Per EMR, PO intake 0-75%. Current Diet Order/ Nutrition Support CCHO 60gm Pertinent Medications D5w, colace, novolog, theragran, seroquel Pertinent Labs 01/08 Na 155, K 4.8, cl 117, BUN 61, Cr 2.0, glucose 113, POC 120-125 Nutritional Hx/Data Height 1.93 m Height (Calculated Centimeters) 193.0 Current Weight (lbs) 72.575 kg Weight (Calculated Kilograms) 72.6 Weight (Calculated Grams) 97688.8 [place] Body Weight 202 Body Mass Index (BMI) 19.5 Weight Status Approriate GI Symptoms GI Symptoms None Last BM 0 Difficult in: None Skin Integrity/Comment: intact Current %PO Fair (50-74%) Estimated Nutritional Goals BEE in Kcals: Using Current wt Calories/Kcals/Kg 25-30 Kcals Calculated 0938-4804 Protein: Using Current wt Protein g/k.8 Protein Calculated 58 Fluid: ml 1825-2190ml (1ml/kcal) Nutritional Problem 1. Problem Problem altered nutrition related labs Etiology acute renal failure Signs/Symptoms: Na 155, BUN 61, Cr 2.0 Malnutrition Alert Protein-Calorie Malnutrition N/A Is there a minimum of two criteria No selected? Query Text:Check all the applicable criteria. A minimum of two criteria are recommended for diagnosis of either severe or non-severe malnutrition. Intervention/Recommendation Comments 1. Recommend adding renal diet considering acute renal failure with elevated Na, BUN, Cr. 2. Monitor PO intake, wt, labs and skin integrity 3. F/U as high risk in 2-3 days, 01/10-01/11 Expected Outcomes/Goals Expected Outcomes/Goals 1. PO intake to meet at least 75% of nutritional needs. 2. Wt stability, skin to remain intact, labs to approach WNL.
[2018-01-10] MEDS: cefTRIAXone 1 GM in Sodium Chloride 0.9% 50 ML IV SCH (17:04)
--- NOTE | 2018-01-10 18:45 | Progress Notes ---
DATE: 01/10/2018 SUBJECTIVE: The patient seen and examined. The patient is still agitated, not eating, and I was unable to get meaningful history. PHYSICAL EXAMINATION: VITAL SIGNS: On today's exam, temperature 98.3, pulse is 125, respiratory rate 18, blood pressure 160/90. HEENT: No facial asymmetry. NECK: Supple. No JVD. HEART: Regular. CHEST: Lungs equal in expansion. No wheezing, no crackles. ABDOMEN: Soft. No guarding, rigidity. Bowel sounds are present. No palpable mass. EXTREMITIES: No edema. DIAGNOSTIC DATA: White count of 10, hemoglobin 13.8, platelet count 114. Sodium 145, potassium 4.0, chloride 111, BUN and creatinine are 36 and 1.6. Valproic acid is over 15.0. IMPRESSION: 1. Tachycardia. 2. Hypernatremia, resolving. 3. Acute kidney injury, resolving. 4. Encephalopathy. 5. Diabetes mellitus. 6. Psychotic disorder. 7. Degenerative joint disease. 8. Hypertension. 9. High risk for fall. PLAN: 1. Continue 1:1 sitter along with IV fluid. Monitor blood sugar, blood pressure, and behavior. 2. Follow labs. 3. Continue psych medication. Continue general nursing care. Fall precautions. Medication and symptoms management, and chronic disease management. Care plan reviewed and discussed with staff. JOB# [id number]
[2018-01-10] MEDS: Atorvastatin Calcium 10 MG TAB PO SCH (21:21)
[2018-01-11 06:08] LABS: % BASOPHILS 0.3 % (0.0-2.0); % EOSINOPHILS 1.1 % (0.0-5.0); % LYMPHOCYTES 18.6 % (20.0-50.0); % MONOCYTES 12.3 % (2.0-10.0); % NEUTROPHILS 67.7 % (40.0-80.0); EOSINOPHILE ABSOLUTE 0.1 Th/cmm (0.1-0.4); HEMATOCRIT 39.5 % (41.0-60); HEMOGLOBIN 13.2 gm/dL (12-16); LYMPHOCYTE ABSOLUTE 1.6 Th/cmm (1.5-3.0); MEAN CELL VOLUME 87.3 fl (80-99); MEAN CORPUSCULAR HEMOGLOBIN 29.3 pg (26.0-30.0); MEAN CORPUSCULAR HGB CONC 33.5 pg (28.0-36.0); MEAN PLATELET VOLUME 9.4 fl; NEUTROPHILE ABSOLUTE 5.7 Th/cmm (1.8-8.0); PLATELET COUNT 121 Th/cmm (150-400); RED BLOOD COUNT 4.52 Mil/cmm (4.30-5.70); RED CELL DISTRIBUTION WIDTH 12.8 % (11.5-20.0); WHITE BLOOD COUNT 8.4 Th/cmm (4.8-10.8)
[2018-01-11 06:25] LABS: ALB/GLOB RATIO 0.9 (1.0-1.8); ALKALINE PHOSPHATASE 55 U/L (34-104); ANION GAP 8.6 (7.0-16.0); BILIRUBIN,TOTAL 0.6 mg/dL (0.3-1.0); BUN - UREA NITROGEN 22 mg/dL (7-25); CALCIUM SERUM 9.1 mg/dL (8.6-10.3); CARBON DIOXIDE 26.8 mEq/L (21.0-31.0); CHLORIDE 110 mEq/L (98-107); CREATININE - SERUM 1.3 mg/dL (0.7-1.3); GFR AFRICAN-AMERICAN > 60.0 ml/min (>90); GFR NON AFRICAN-AMERICAN 59.8 ml/min; GLUCOSE 119 mg/dL (70-105); POTASSIUM SERUM 3.4 mEq/L (3.5-5.1); SGOT 54 U/L (13-39); SGPT/ALT 28 U/L (7-52); SODIUM SERUM 142 mEq/L (136-145); TOTAL PROTEIN,SERUM 6.2 gm/dL (6.0-8.3)
[2018-01-11] MEDS: INSULIN ASPART SLIDING SCALE 100 UNITS/ML UNIT SUBQ SCH ×4 (08:55→21:02)
[2018-01-11] MEDS: Diltiazem 30 mg Tab PO SCH ×2 (08:55→23:07)
[2018-01-11] MEDS: Multivitamin Tab PO SCH (08:56)
[2018-01-11] MEDS: Lactobacillus Rhamnosus GG 15 Billion CFU CAP.SPRINK PO SCH (08:56)
--- NOTE | 2018-01-11 12:51 | General Progress Note ---
Subjective - Review of Systems Service Date: 01/11/18 Subjective: pt seen and examined. confused not able to get info Objective - Results Result Diagrams: 01/11/18 05:50 01/11/18 05:50 Recent Labs: Laboratory Last Values WBC 8.4 Th/cmm (4.8-10.8) 01/11/18 05:50 RBC 4.52 Mil/cmm (4.30-5.70) 01/11/18 05:50 Hgb 13.2 gm/dL (12-16) 01/11/18 05:50 Hct 39.5 % (41.0-60) L 01/11/18 05:50 MCV 87.3 fl (80-99) 01/11/18 05:50 MCH 29.3 pg (26.0-30.0) 01/11/18 05:50 MCHC Differential 33.5 pg (28.0-36.0) 01/11/18 05:50 RDW 12.8 % (11.5-20.0) 01/11/18 05:50 Plt Count 121 Th/cmm (150-400) L 01/11/18 05:50 MPV 9.4 fl 01/11/18 05:50 Neutrophils % 67.7 % (40.0-80.0) 01/11/18 05:50 Lymphocytes % 18.6 % (20.0-50.0) L 01/11/18 05:50 Monocytes % 12.3 % (2.0-10.0) H 01/11/18 05:50 Eosinophils % 1.1 % (0.0-5.0) 01/11/18 05:50 Basophils % 0.3 % (0.0-2.0) 01/11/18 05:50 Sodium 142 mEq/L (136-145) 01/11/18 05:50 Potassium 3.4 mEq/L (3.5-5.1) L 01/11/18 05:50 Chloride 110 mEq/L (98-107) H 01/11/18 05:50 Carbon Dioxide 26.8 mEq/L (21.0-31.0) 01/11/18 05:50 Anion Gap 8.6 (7.0-16.0) 01/11/18 05:50 BUN 22 mg/dL (7-25) 01/11/18 05:50 Creatinine 1.3 mg/dL (0.7-1.3) 01/11/18 05:50 Est GFR ( Amer) > 60.0 ml/min (>90) 01/11/18 05:50 Est GFR (Non-Af Amer) 59.8 ml/min 01/11/18 05:50 BUN/Creatinine Ratio 16.9 01/11/18 05:50 Glucose 119 mg/dL (70-105) H 01/11/18 05:50 POC Glucose 129 MG/DL (70 - 105) H 01/11/18 11:19 Hemoglobin A1c % 5.8 % (4.0-6.0) 01/06/18 06:00 Calcium 9.1 mg/dL (8.6-10.3) 01/11/18 05:50 Magnesium 3.1 mg/dL (1.9-2.7) H 01/08/18 05:20 Total Bilirubin 0.6 mg/dL (0.3-1.0) 01/11/18 05:50 AST 54 U/L (13-39) H 01/11/18 05:50 ALT 28 U/L (7-52) 01/11/18 05:50 Alkaline Phosphatase 55 U/L (34-104) 01/11/18 05:50 Total Protein 6.2 gm/dL (6.0-8.3) 01/11/18 05:50 Albumin 3.0 gm/dL (4.2-5.5) L 01/11/18 05:50 Globulin 3.2 gm/dL 01/11/18 05:50 Albumin/Globulin Ratio 0.9 (1.0-1.8) L 01/11/18 05:50 TSH 0.82 uIU/ml (0.34-5.60) 01/06/18 14:27 Urine Source RANDOM 01/06/18 01:00 Urine Color YELLOW 01/06/18 01:00 Urine Clarity CLEAR (CLEAR) 01/06/18 01:00 Urine pH 5.5 (4.6 - 8.0) 01/06/18 01:00 Ur Specific [place] 1.020 (1.005-1.030) 01/06/18 01:00 Urine Protein NEGATIVE mg/dL (NEGATIVE) 01/06/18 01:00 Urine Glucose (UA) NEGATIVE mg/dL (NEGATIVE) 01/06/18 01:00 Urine Ketones NEGATIVE mg/dL (NEGATIVE) 01/06/18 01:00 Urine Blood NEGATIVE (NEGATIVE) 01/06/18 01:00 Urine Nitrate NEGATIVE (NEGATIVE) 01/06/18 01:00 Urine Bilirubin NEGATIVE (NEGATIVE) 01/06/18 01:00 Urine Urobilinogen 0.2 E.U./dL (0.2 - 1.0) 01/06/18 01:00 Ur Leukocyte Esterase NEGATIVE (NEGATIVE) 01/06/18 01:00 Urine RBC NONE SEEN /hpf (0-5) 01/06/18 01:00 Urine WBC NONE SEEN /hpf (0-5) 01/06/18 01:00 Ur Epithelial Cells NONE SEEN /lpf (FEW) 01/06/18 01:00 Urine Bacteria NONE SEEN /hpf (NONE SEEN) 01/06/18 01:00 Valproic Acid 14.9 ug/mL (50.0-100.0) L 01/10/18 05:25 - Physical Exam Vitals and I&O: Vital Signs Temp 98.1 F 01/11/18 08:00 Pulse 82 01/11/18 08:57 Resp 18 01/11/18 08:00 BP 107/64 01/11/18 08:57 Pulse Ox 97 01/11/18 08:00 Intake & Output 01/10/18 01/11/18 01/11/18 18:59 06:59 18:59 Intake Total 1999 400 Balance 1999 400 Weight (lbs) 67.132 kg Intake: Intake, IV Amount 1999 50 Dextrose 5% 1,000 ml @ 2000 150 mls/hr IV .Q6H40M [facility] Rx#:[id number] cefTRIAXone 1 gm In 50 Sodium Chloride 0.9% 50 ml @ 100 mls/hr IV Q24HR [facility] Rx#:[id number] Oral 350 Other: # Voids 3 # Bowel Movements 1 Stool Characteristics Soft Soft Formed Formed [place] Brown Active Medications: Current Medications Acetaminophen (Tylenol) 650 mg PO Q4HR PRN PRN Reason: Pain Or Fever above 101 Stop: 03/06/18 16:07 Atorvastatin Calcium (Lipitor) 40 mg PO HS KAYODE PRN Reason: Protocol Stop: 03/06/18 20:59 Last Admin: 01/10/18 21:21 Dose: 40 mg Diltiazem HCl (Cardizem) 120 mg PO Q12HR [facility] Stop: 03/06/18 20:59 Last Admin: 01/11/18 08:55 Dose: Not Given Divalproex Sodium (Depakote Dr) 500 mg PO HS KAYODE PRN Reason: Protocol Stop: 03/06/18 20:59 Last Admin: 01/10/18 21:22 Dose: 500 mg Docusate Sodium (Colace) 100 mg PO BID [facility] Stop: 03/06/18 16:59 Last Admin: 01/11/18 08:56 Dose: 100 mg Haloperidol Lactate (Haldol) 5 mg IM Q6HR PRN PRN Reason: Agitation Stop: 03/08/18 07:21 Last Admin: 01/07/18 16:20 Dose: 5 mg Ceftriaxone Sodium 1 gm/ (Sodium Chloride) 50 mls @ 100 mls/hr IV Q24HR [facility] Stop: 03/06/18 17:59 Last Infusion: 01/10/18 20:02 Dose: Infused Dextrose (D5w) 1,000 mls @ 150 mls/hr IV .Q6H40M [facility] Stop: 03/07/18 13:43 Last Admin: 01/10/18 15:07 Dose: 150 mls/hr Insulin Aspart (Novolog Insulin Sliding Scale) 0 units SUBQ ACHS KAYODE PRN Reason: Protocol Stop: 03/06/18 16:29 Last Admin: 01/11/18 11:22 Dose: Not Given Lactobacillus Rhamnosus (Culturelle 15b) 1 each PO DAILY [facility] Stop: 03/12/18 08:59 Last Admin: 01/11/18 08:56 Dose: 1 each Lorazepam (Ativan) 0.5 mg PO Q4HR PRN; Protocol PRN Reason: Agitation Stop: 03/07/18 20:36 Last Admin: 01/10/18 21:23 Dose: 0.5 mg Lorazepam (Ativan) 1 mg IVP Q4HR PRN; Protocol PRN Reason: Agitation Stop: 03/09/18 08:53 Last Admin: 01/09/18 22:39 Dose: 1 mg Magnesium Hydroxide (Milk Of Magnesia) 30 ml PO HS PRN PRN Reason: Constipation Stop: 03/06/18 15:52 Memantine (Namenda) 10 mg PO BID [facility] Stop: 03/06/18 16:59 Last Admin: 01/11/18 08:56 Dose: 10 mg Metoprolol Tartrate (Lopressor) 25 mg PO BID [facility] Stop: 03/06/18 16:59 Last Admin: 01/11/18 08:57 Dose: 25 mg Miscellaneous (Probiotic Screen) 1 ea MC PRN PRN PRN Reason: PROTOCOL Stop: 03/11/18 11:59 Multivitamins/Vitamin C (Theragran) 1 tab PO DAILY [facility] Stop: 03/07/18 08:59 Last Admin: 01/11/18 08:56 Dose: 1 tab Olanzapine (Zyprexa) 10 mg PO BID [facility] PRN Reason: Protocol Stop: 03/06/18 16:59 Last Admin: 01/11/18 08:56 Dose: 10 mg Quetiapine Fumarate (Seroquel) 50 mg PO HS K[facility]ODE PRN Reason: Protocol Stop: 03/08/18 20:59 Last Admin: 01/10/18 21:22 Dose: 50 mg Quetiapine Fumarate (Seroquel) 50 mg PO BID [facility] PRN Reason: Protocol Stop: 03/11/18 07:54 Last Admin: 01/11/18 08:56 Dose: 50 mg Zolpidem Tartrate (Ambien) 5 mg PO HS PRN PRN Reason: Insomnia Stop: 03/06/18 15:48 Last Admin: 01/08/18 22:21 Dose: 5 mg General: Alert, No acute distress (Confused.) HEENT: Atraumatic, PERRLA, EOMI, Other (dry oral mucosa) Neck: Supple, JVD Cardiovascular: Regular rate, Normal S1, Normal S2 Lungs: Clear to auscultation Abdomen: Bowel sounds, Soft Neurological: Other (confused. Does not follow directions) Psych/Mental Status: Other (labile.) Assessment/Plan - Assessment Assessment: 1. ALOC 2. Hypernatremia 3. ARCHIE 4. Psyche history. Confused at this time. 5. SZD 6. DM 7. HTN - Plan Plan: Continue IVF Monitor glucose Will recheck labs in am. Continue meds for DM, HTN, SZD. Continue psyche meds. Nutritional Asmnt/Malnutr-PDOC - Dietary Evaluation Malnutrition Findings (Please click <Entered> for more info): Nutritional Asmnt/Malnutrition Start: 01/08/18 17: 05 Text: Status: Complete Freq: Document 01/08/18 17:07 MOTNANA (Rec: 01/08/18 17:31 [place] [email or web address]) Nutritional Asmnt/Malnutrition Patient General Information Nutritional Screening High Risk Diagnosis acute renal failure Pertinent Medical Hx/Surgical Hx HTN, hyperlipidemia, psychosis , dementia, DJD Subjective Information Pt was transfered from [facility].Pt seen sleeping in nato-chair in his room. Pt is combative, on 1:1 sitter. Per RN, PO intake varied d/t mental status. Per EMR, PO intake 0-75%. Current Diet Order/ Nutrition Support CCHO 60gm Pertinent Medications D5w, colace, novolog, theragran, seroquel Pertinent Labs 01/08 Na 155, K 4.8, cl 117, BUN 61, Cr 2.0, glucose 113, POC 120-125 Nutritional Hx/Data Height 1.93 m Height (Calculated Centimeters) 193.0 Current Weight (lbs) 72.575 kg Weight (Calculated Kilograms) 72.6 Weight (Calculated Grams) 83775.8 [place] Body Weight 202 Body Mass Index (BMI) 19.5 Weight Status Approriate GI Symptoms GI Symptoms None Last BM 0 Difficult in: None Skin Integrity/Comment: intact Current %PO Fair (50-74%) Estimated Nutritional Goals BEE in Kcals: Using Current wt Calories/Kcals/Kg 25-30 Kcals Calculated 1158-7018 Protein: Using Current wt Protein g/k.8 Protein Calculated 58 Fluid: ml 1825-2190ml (1ml/kcal) Nutritional Problem 1. Problem Problem altered nutrition related labs Etiology acute renal failure Signs/Symptoms: Na 155, BUN 61, Cr 2.0 Malnutrition Alert Protein-Calorie Malnutrition N/A Is there a minimum of two criteria No selected? Query Text:Check all the applicable criteria. A minimum of two criteria are recommended for diagnosis of either severe or non-severe malnutrition. Intervention/Recommendation Comments 1. Recommend adding renal diet considering acute renal failure with elevated Na, BUN, Cr. 2. Monitor PO intake, wt, labs and skin integrity 3. F/U as high risk in 2-3 days, 01/10-01/11 Expected Outcomes/Goals Expected Outcomes/Goals 1. PO intake to meet at least 75% of nutritional needs. 2. Wt stability, skin to remain intact, labs to approach WNL.
[2018-01-11] MEDS ORDERED: KCL 20mEq/100mL Premix 20 MEQ/100 ML PIGGYBACK IV SCH (13:00)
--- NOTE | 2018-01-11 13:56 | Progress Notes ---
DATE: 01/11/2018 PATIENT IDENTIFICATION: A 62-year-old male. SUBJECTIVE: The patient seen and examined. The patient lying in the bed, still agitated. Unable to get meaningful history. OBJECTIVE: VITAL SIGNS: Temperature 97, pulse is 82, respiratory rate is 18, blood pressure 107/64. HEENT: No facial asymmetry. NECK: Supple, no JVD. HEART: Regular. CHEST AND LUNG: Equal in expansion, no wheezing, no crackles. ABDOMEN: Soft. EXTREMITIES: No edema. AVAILABLE DIAGNOSTIC DATA: Sodium 142, BUN and creatinine is 22 and 1.3. White count of 8.4, hemoglobin 13.2, platelet count is 121,000. CLINICAL IMPRESSION: 1. Hyponatremia, resolving. 2. Acute kidney injury, resolved. 3. Diabetes. 4. Hypertension. 5. Psychotic disorder. 6. Dementia. 7. Degenerative joint disease. 8. High risk for fall. PLAN: I will continue this patient on current IV fluid, keep the sodium to 135 range. We will transfer this patient to the med/surg status. The patient will have a psychiatric medication as the patient was receiving hopefully once patient is able to eat. We will have the definite treatment plan for this patient to be placed as far as medical treatment standpoint. [facility]# [id number]
[2018-01-11] MEDS ORDERED: D5-0.45NS w/20 mEq KCL 1,000 ML IV SCH (14:00)
[2018-01-11] MEDS: D5W w/20 mEq KCL 1,000 ML IV SCH (14:13)
[2018-01-11] MEDS: cefTRIAXone 1 GM in Sodium Chloride 0.9% 50 ML IV SCH (17:40)
[2018-01-11] MEDS: Atorvastatin Calcium 10 MG TAB PO SCH (23:01)
[2018-01-12] MEDS: Haloperidol Lactate 5 mg/mL 1mL Vial IM PRN (06:34)
[2018-01-12] MEDS: D5W w/20 mEq KCL 1,000 ML IV SCH ×2 (06:34→17:21)
[2018-01-12] MEDS: INSULIN ASPART SLIDING SCALE 100 UNITS/ML UNIT SUBQ SCH ×4 (07:32→23:04)
[2018-01-12] MEDS: Lactobacillus Rhamnosus GG 15 Billion CFU CAP.SPRINK PO SCH (08:48)
[2018-01-12] MEDS: Multivitamin Tab PO SCH (08:49)
[2018-01-12] MEDS: Diltiazem 30 mg Tab PO SCH ×2 (08:49→23:03)
[2018-01-12 10:13] LABS: % BASOPHILS 0.1 % (0.0-2.0); % EOSINOPHILS 0.7 % (0.0-5.0); % LYMPHOCYTES 14.3 % (20.0-50.0); % MONOCYTES 11.2 % (2.0-10.0); % NEUTROPHILS 73.7 % (40.0-80.0); EOSINOPHILE ABSOLUTE 0.1 Th/cmm (0.1-0.4); HEMATOCRIT 40.8 % (41.0-60); HEMOGLOBIN 13.3 gm/dL (12-16); LYMPHOCYTE ABSOLUTE 1.3 Th/cmm (1.5-3.0); MEAN CELL VOLUME 88.2 fl (80-99); MEAN CORPUSCULAR HEMOGLOBIN 28.8 pg (26.0-30.0); MEAN CORPUSCULAR HGB CONC 32.7 pg (28.0-36.0); MEAN PLATELET VOLUME 8.6 fl; NEUTROPHILE ABSOLUTE 6.9 Th/cmm (1.8-8.0); PLATELET COUNT 146 Th/cmm (150-400); RED BLOOD COUNT 4.63 Mil/cmm (4.30-5.70); RED CELL DISTRIBUTION WIDTH 12.8 % (11.5-20.0); WHITE BLOOD COUNT 9.3 Th/cmm (4.8-10.8)
[2018-01-12 10:28] LABS: ALB/GLOB RATIO 0.9 (1.0-1.8); ALBUMIN 3.2 gm/dL (4.2-5.5); ALKALINE PHOSPHATASE 57 U/L (34-104); ANION GAP 11.1 (7.0-16.0); BILIRUBIN,TOTAL 0.6 mg/dL (0.3-1.0); BUN - UREA NITROGEN 19 mg/dL (7-25); CALCIUM SERUM 9.7 mg/dL (8.6-10.3); CARBON DIOXIDE 27.2 mEq/L (21.0-31.0); CHLORIDE 111 mEq/L (98-107); CREATININE - SERUM 1.3 mg/dL (0.7-1.3); GFR AFRICAN-AMERICAN > 60.0 ml/min (>90); GFR NON AFRICAN-AMERICAN 59.8 ml/min; GLUCOSE 129 mg/dL (70-105); POTASSIUM SERUM 4.3 mEq/L (3.5-5.1); SGOT 51 U/L (13-39); SGPT/ALT 28 U/L (7-52); SODIUM SERUM 145 mEq/L (136-145); TOTAL PROTEIN,SERUM 6.8 gm/dL (6.0-8.3)
--- NOTE | 2018-01-12 13:31 | Progress Notes ---
DATE: 01/12/2018 SUBJECTIVE: The patient seen and examined. The patient continues to remain confused and unable to eat. The patient is currently getting IV fluid. The patient's care plan has been reviewed with assigned nurse. PHYSICAL EXAMINATION: VITAL SIGNS: Temperature 98.4, pulse is 97, respiratory rate 18, blood pressure 142/86. HEENT: No facial asymmetry. Poor dentition noted. NECK: Supple, no JVD, no lymphadenopathy or thyromegaly. HEART: Both heart sounds are regular. CHEST: Lungs equal in expansion, no wheezing, no crackles. ABDOMEN: Soft, no guarding, no rigidity. Bowel sounds present. EXTREMITIES: No edema. AVAILABLE DIAGNOSTIC DATA: White count of 9.3, hemoglobin 13.3, platelet count of 146. Sodium 145, potassium 4.3, chloride 111, CO2 27.2, BUN and creatinine is 19 and 1.3, albumin of 3.2. Blood cultures and MRSA nares are negative. MEDICATIONS: Medication administration record has been reviewed as well. CLINICAL IMPRESSION: 1. Altered mental status secondary to metabolic encephalopathy, improving. 2. Hypernatremia, resolved. 3. Hyperlipidemia. 4. Psychotic disorder exacerbation. 5. Diabetes mellitus. 6. Dementia. 7. Hypertension. 8. Degenerative joint disease. 9. High risk for fall. PLAN: The patient is currently receiving 75 mL of IV fluid. I will cut down the IV fluid to 55 an hour. We will try to feed the patient with aspiration precaution if the patient does not eat. The patient will require possible gastrostomy tube placement considering patient has multiple attempts of refusal and we had a period of agitation and the patient is unable to take care of himself. The patient will continue to receive other medication as prescribed. Monitor the blood sugar, blood pressure along with followup on lab and follow up on consult recommendations. Care plan reviewed and discussed. JOB# [id number]
[2018-01-12] MEDS: cefTRIAXone 1 GM in Sodium Chloride 0.9% 50 ML IV SCH (17:20)
--- NOTE | 2018-01-12 18:36 | Progress Notes ---
DATE: 01/12/2018 PSYCHIATRIC PROGRESS NOTE SUBJECTIVE: Chart reviewed and the patient interviewed. Also discussed the patient's condition with the staff and reviewed records and labs. The patient is still agitated and he is still in irritable mood. The patient also is still restless and he is agitated and actively talking, although seems to be slightly less than before. Also, start easier to redirect him. He also has been compliant with taking medications, with no side effects of medications. ASSESSMENT: The patient is still agitated and psychotic, but slightly improved. TREATMENT PLAN: Continue current medications and continue to monitor his behavior and his condition closely. JOB# [id number]
[2018-01-12] MEDS: Atorvastatin Calcium 10 MG TAB PO SCH (23:03)
[2018-01-13 08:07] LABS: ALB/GLOB RATIO 0.9 (1.0-1.8); ALBUMIN 3.3 gm/dL (4.2-5.5); ALKALINE PHOSPHATASE 57 U/L (34-104); ANION GAP 13.3 (7.0-16.0); BILIRUBIN,TOTAL 0.7 mg/dL (0.3-1.0); BUN - UREA NITROGEN 19 mg/dL (7-25); CALCIUM SERUM 9.9 mg/dL (8.6-10.3); CARBON DIOXIDE 23.1 mEq/L (21.0-31.0); CHLORIDE 110 mEq/L (98-107); CREATININE - SERUM 1.3 mg/dL (0.7-1.3); GFR AFRICAN-AMERICAN > 60.0 ml/min (>90); GFR NON AFRICAN-AMERICAN 59.8 ml/min; GLUCOSE 121 mg/dL (70-105); POTASSIUM SERUM 4.4 mEq/L (3.5-5.1); SGOT 53 U/L (13-39); SGPT/ALT 31 U/L (7-52); SODIUM SERUM 142 mEq/L (136-145); TOTAL PROTEIN,SERUM 7.1 gm/dL (6.0-8.3)
[2018-01-13] MEDS: D5W w/20 mEq KCL 1,000 ML IV SCH ×2 (08:59→18:55)
[2018-01-13] MEDS: Multivitamin Tab PO SCH (08:59)
[2018-01-13] MEDS: Diltiazem 30 mg Tab PO SCH ×2 (09:00→20:51)
[2018-01-13] MEDS: Lactobacillus Rhamnosus GG 15 Billion CFU CAP.SPRINK PO SCH (09:00)
[2018-01-13] MEDS: INSULIN ASPART SLIDING SCALE 100 UNITS/ML UNIT SUBQ SCH ×4 (09:02→20:52)
--- NOTE | 2018-01-13 14:05 | Progress Notes ---
DATE: 01/13/2018 PATIENT'S IDENTIFICATION: A 62-year-old male. SUBJECTIVE: The patient seen and examined on 01/13/2018. The patient is lying comfortably. Discussed with the nursing staff as well as the BIOINFORMATICIST. Unable to eat properly. The patient is choking with the food and the patient has a very poor p.o. intake. The patient does not provide a meaningful history. PHYSICAL EXAMINATION: VITAL SIGNS: On today's exam, temperature 98, pulse is 100, respiratory rate 18, and blood pressure 144/79. HEENT: No facial asymmetry. NECK: Supple. No JVD. HEART: Regular. CHEST: Lung equal in expansion. No expiratory wheezing. ABDOMEN: Soft. No guarding, no rigidity. Bowel sounds are present. EXTREMITIES: No edema. AVAILABLE DIAGNOSTIC DATA: Sodium 142, potassium 4.4, chloride 110, CO2 23.1, BUN and creatinine is 19 and 1.3, albumin of 3.3. CLINICAL IMPRESSION: 1. Oropharyngeal dysphagia to liquid and solid, etiology needs to determine. 2. Metabolic encephalopathy. 3. Underlying dementia. 4. Diabetes. 5. Hypertension. 6. Hyperlipidemia. 7. High risk for fall. PLAN: 1. Swallow evaluation. 2. CT scan of head with and without contrast. 3. IV antibiotic. 4. IV fluid. 5. GI consult for G-tube. 6. Follow lab. 7. Follow consult recommendation. 8. Left a message for the patient's about further treatment plan. JOB# [id number]
[2018-01-13] MEDS: Atorvastatin Calcium 10 MG TAB PO SCH (20:59)
[2018-01-14 07:26] LABS: % BASOPHILS 0.1 % (0.0-2.0); % EOSINOPHILS 0.7 % (0.0-5.0); % LYMPHOCYTES 11.1 % (20.0-50.0); % MONOCYTES 10.7 % (2.0-10.0); % NEUTROPHILS 77.4 % (40.0-80.0); HEMATOCRIT 43.6 % (41.0-60); HEMOGLOBIN 14.2 gm/dL (12-16); LYMPHOCYTE ABSOLUTE 0.8 Th/cmm (1.5-3.0); MEAN CELL VOLUME 88.3 fl (80-99); MEAN CORPUSCULAR HEMOGLOBIN 28.7 pg (26.0-30.0); MEAN CORPUSCULAR HGB CONC 32.6 pg (28.0-36.0); MONOCYTE ABSOLUTE 0.7 Th/cmm (0.3-1.0); NEUTROPHILE ABSOLUTE 5.5 Th/cmm (1.8-8.0); PLATELET COUNT 170 Th/cmm (150-400); RED BLOOD COUNT 4.94 Mil/cmm (4.30-5.70); RED CELL DISTRIBUTION WIDTH 13.1 % (11.5-20.0)
[2018-01-14] MEDS: INSULIN ASPART SLIDING SCALE 100 UNITS/ML UNIT SUBQ SCH ×4 (07:32→23:15)
[2018-01-14 07:50] LABS: ALB/GLOB RATIO 0.8 (1.0-1.8); ALBUMIN 3.1 gm/dL (4.2-5.5); ALKALINE PHOSPHATASE 61 U/L (34-104); ANION GAP 12.9 (7.0-16.0); BILIRUBIN,TOTAL 0.5 mg/dL (0.3-1.0); BUN - UREA NITROGEN 24 mg/dL (7-25); CALCIUM SERUM 9.7 mg/dL (8.6-10.3); CARBON DIOXIDE 23.3 mEq/L (21.0-31.0); CHLORIDE 110 mEq/L (98-107); CREATININE - SERUM 1.4 mg/dL (0.7-1.3); GFR AFRICAN-AMERICAN > 60.0 ml/min (>90); GFR NON AFRICAN-AMERICAN 54.9 ml/min; GLUCOSE 108 mg/dL (70-105); POTASSIUM SERUM 4.2 mEq/L (3.5-5.1); SGOT 97 U/L (13-39); SGPT/ALT 58 U/L (7-52); SODIUM SERUM 142 mEq/L (136-145)
[2018-01-14 09:59] LABS: INR 1.3 (0.5-1.4); PROTHROMBIN TIME (TEST) 13.7 SECONDS (9.5-11.5)
[2018-01-14] MEDS: Lactobacillus Rhamnosus GG 15 Billion CFU CAP.SPRINK PO SCH (10:34)
[2018-01-14] MEDS: Diltiazem 30 mg Tab PO SCH ×2 (10:34→22:08)
[2018-01-14] MEDS: Multivitamin Tab PO SCH (10:34)
--- NOTE | 2018-01-14 11:02 | Consultation ---
DATE OF CONSULTATION: 01/14/2018 INPATIENT GASTROINTESTINAL CONSULTATION CONSULTING PHYSICIAN: Dr. Carlson. REASON FOR CONSULTATION: Poor oral intake, anorexia and failure to thrive. HISTORY OF PRESENT ILLNESS: The patient is a 62-year-old male who was admitted originally to the Geropsych Unit given underlying psychiatric illness; however, he was transferred to the medical floor on 01/06/2018 as it was noted that he was not taking in adequate p.o. and had laboratory suggestion of severe dehydration and acute renal failure. For the past week on the medical floor, the patient has been noted to be choking on his food and still is not taking in enough nutrition by mouth to maintain his nutritional caloric needs and thus GI is now asked to place for placement of the G-tube to help with nutritional supplementation. I spoke to the patient's this morning. We went over the risks and benefits of G-tube placement and she is in agreement with this given the patient is not taking any food in by mouth at this point. We went over the fact that G-tube is somewhat reversible and can be removed at 6 weeks' time if the patient is able to regain his swallowing function. PAST MEDICAL HISTORY: Previous stroke, hypertension, dementia, diabetes. PAST SURGICAL HISTORY: There is no history of abdominal surgery. FAMILY HISTORY: Noncontributory. SOCIAL HISTORY: The patient is living in the nursing facility prior to hospitalization here. There is no documented history of alcoholism or illicit drug use. ALLERGIES: THERE IS REPORTED ALLERGY TO IBUPROFEN AND LISINOPRIL. REVIEW OF SYSTEMS: Not possible given the patient is not able to participate in interview at this time. CURRENT MEDICATIONS: Include Tylenol as needed, Lipitor, Cardizem, Depakote, Colace, Haldol, insulin, lactobacillus, lorazepam, milk of magnesia, Namenda, Lopressor, probiotic, multivitamin, Zyprexa, Seroquel. PHYSICAL EXAMINATION: VITAL SIGNS: Blood pressure is 151/83, pulse 112 beats per minute, temperature 97.8, pulse oximetry 98%. GENERAL: The patient is lying in bed, alert and oriented x 0. He does not appear to be in acute distress. HEENT: Normocephalic, atraumatic appearing head. Pupils appear to be equal and reactive. Moist mucous membranes are noted. No scleral icterus. NECK: Supple. There is no JVD or thyromegaly. CHEST: Crackles at both bases. CARDIOVASCULAR: S1, S2 are present, tachycardic rhythm. ABDOMEN: Soft, nontender to palpation. No obvious guarding or rebound. No distention. EXTREMITIES: There is 1+ pitting edema. Pulses are not palpable. SKIN: There are no obvious jaundice or cyanosis. LABORATORY DATA: White blood cell count 7.0, hemoglobin 14.2, platelet count is 170. Sodium 142, BUN 24, creatinine 1.4, AST 97, ALT 58, total bilirubin 0.5, no abdominal imaging has been performed. IMPRESSION: This is a 62-year-old male with history of previous stroke, type 2 diabetes, dementia who is a permanent resident of the nursing facility, admitted to the hospital initially for behavioral issues, but has been sent since not be taking in adequate nutrition by mouth causing severe dehydration and acute renal failure. 1. Anorexia, failure to thrive. 2. Previous stroke. 3. Dementia. 4. Type 2 diabetes. 5. Elevated liver function tests. DISCUSSION: G-tube placement in this patient is reasonable given that he has not been taking enough oral nutrition over the past week and a half, while admitted to the hospital in order to maintain his electrolyte balance and hydration status. I spoke at length about this procedure with the patient's this morning, I went over the risks and benefits and did let her know that this G-tube is reversible, but will need to stay in for at least 6 weeks after initial placement. She is in agreement with this plan and has consented to the procedure. The patient will receive 1 gram of Ancef prior to the procedure. In terms of the elevated liver function tests, this is likely due to fatty liver disease, although medication effect is also on the differential. We will get abdominal ultrasound for further evaluation. RECOMMENDATIONS: 1. G-tube placement this afternoon in the operating room. The patient will receive Ancef prior to the procedure. 2. We will get an INR to ensure that this is not elevated prior to the procedure. 3. Abdominal ultrasound as stated above. 4. N.p.o. until after G-tube placement. Thank you for allowing me to participate in this patient's care. Please call with any further questions. JOB# [id number]
[2018-01-14] MEDS ORDERED: ceFAZolin 1 GM in Sodium Chloride 0.9% 50 ML IV ONE (12:00)
--- NOTE | 2018-01-14 12:27 | Diagnostic Imaging Report ---
CHEST X-RAY: AP view INDICATION: Shortness of breath COMPARISON: None FINDINGS: Slight increased right basal lung markings are noted. There is no focal consolidation or pleural effusions The heart is normal in size. Degenerative changes of the spine are noted. IMPRESSION: No acute cardiopulmonary disease. Slight increased right basal lung markings favoring atelectatic changes. No focal consolidation identified.
--- NOTE | 2018-01-14 12:51 | Diagnostic Imaging Report ---
Head CT without and with intravenous contrast Indication: Altered level of consciousness Comparison: None Technique: Axial images were obtained from the vertex to the skull base before and following administration of IV contrast. Coronal reconstructions were made. Total DLP: 989, CTDI 64 FINDINGS: Images of the brain obtained without contrast demonstrate no evidence of an acute hemorrhage. Mild atrophy is noted. The ventricles and basal cisterns are patent. No mass effect or midline shift. Following contrast administration, no abnormal enhancement is apparent. The dowling-white matter differentiation is preserved. No evidence of a skull fracture or focal soft tissue swelling. IMPRESSION: No acute intracranial abnormality. No enhancing mass lesions identified.
--- NOTE | 2018-01-14 14:35 | Diagnostic Imaging Report ---
Ultrasound abdomen HISTORY: Elevated liver function tests COMPARISON: None Technique: Sonography of the abdomen was performed in multiple planes. FINDINGS: Exam is limited due to patient's medical condition and bowel gas. The liver demonstrates normal echogenicity. The liver margins are not well-defined, however no evidence of focal lesions. The liver measures 16.6 cm. Diffuse gallbladder sludge is noted. Small gallstones cannot be excluded. No evidence of gallbladder wall thickening or pericholecystic fluid. The common bile duct measures 3 mm. Evaluation of the pancreas is limited due to bowel gas. The right kidney measures 10.7 x 4.7 cm. No evidence of focal lesions or hydronephrosis. The left kidney measures 10.7 x 5.8 cm. The renal margins are not well-defined, however No evidence of focal lesions or hydronephrosis. There is increased echogenicity of the kidneys. The spleen measures 10 cm. IMPRESSION: Diffuse gallbladder sludge. Small gallstones cannot be excluded. Please correlate with patient's clinical findings. No evidence of gallbladder wall thickening or pericholecystic fluid. If indicated, follow-up nuclear medicine HIDA scan may be obtained for further assessment. Increased echogenicity kidneys which may due to underlying medical renal disease. Liver the upper limits of normal in size.
[2018-01-14] MEDS: D5W w/20 mEq KCL 1,000 ML IV SCH (15:29)
--- NOTE | 2018-01-14 16:07 | General Progress Note ---
Subjective - Review of Systems Service Date: 01/14/18 Subjective: pt seen and examined. confused not able to get info Objective - Results Result Diagrams: 01/14/18 06:45 01/14/18 06:45 Recent Labs: Laboratory Last Values WBC 7.0 Th/cmm (4.8-10.8) 01/14/18 06:45 RBC 4.94 Mil/cmm (4.30-5.70) 01/14/18 06:45 Hgb 14.2 gm/dL (12-16) 01/14/18 06:45 Hct 43.6 % (41.0-60) 01/14/18 06:45 MCV 88.3 fl (80-99) 01/14/18 06:45 MCH 28.7 pg (26.0-30.0) 01/14/18 06:45 MCHC Differential 32.6 pg (28.0-36.0) 01/14/18 06:45 RDW 13.1 % (11.5-20.0) 01/14/18 06:45 Plt Count 170 Th/cmm (150-400) 01/14/18 06:45 MPV 9.0 fl 01/14/18 06:45 Neutrophils % 77.4 % (40.0-80.0) 01/14/18 06:45 Lymphocytes % 11.1 % (20.0-50.0) L 01/14/18 06:45 Monocytes % 10.7 % (2.0-10.0) H 01/14/18 06:45 Eosinophils % 0.7 % (0.0-5.0) 01/14/18 06:45 Basophils % 0.1 % (0.0-2.0) 01/14/18 06:45 PT 13.7 SECONDS (9.5-11.5) H 01/14/18 09:19 INR 1.30 (0.5-1.4) 01/14/18 09:19 PTT (Actin FS) 27.8 SECONDS (26.0-38.0) 01/14/18 09:19 Sodium 142 mEq/L (136-145) 01/14/18 06:45 Potassium 4.2 mEq/L (3.5-5.1) 01/14/18 06:45 Chloride 110 mEq/L (98-107) H 01/14/18 06:45 Carbon Dioxide 23.3 mEq/L (21.0-31.0) 01/14/18 06:45 Anion Gap 12.9 (7.0-16.0) 01/14/18 06:45 BUN 24 mg/dL (7-25) 01/14/18 06:45 Creatinine 1.4 mg/dL (0.7-1.3) H 01/14/18 06:45 Est GFR ( Amer) > 60.0 ml/min (>90) 01/14/18 06:45 Est GFR (Non-Af Amer) 54.9 ml/min 01/14/18 06:45 BUN/Creatinine Ratio 17.1 01/14/18 06:45 Glucose 108 mg/dL (70-105) H 01/14/18 06:45 POC Glucose 77 MG/DL (70 - 105) 01/14/18 12:44 Hemoglobin A1c % 5.8 % (4.0-6.0) 01/06/18 06:00 Calcium 9.7 mg/dL (8.6-10.3) 01/14/18 06:45 Magnesium 2.0 mg/dL (1.9-2.7) 01/13/18 07:24 Total Bilirubin 0.5 mg/dL (0.3-1.0) 01/14/18 06:45 AST 97 U/L (13-39) H 01/14/18 06:45 ALT 58 U/L (7-52) H 01/14/18 06:45 Alkaline Phosphatase 61 U/L (34-104) 01/14/18 06:45 Total Protein 7.0 gm/dL (6.0-8.3) 01/14/18 06:45 Albumin 3.1 gm/dL (4.2-5.5) L 01/14/18 06:45 Globulin 3.9 gm/dL 01/14/18 06:45 Albumin/Globulin Ratio 0.8 (1.0-1.8) L 01/14/18 06:45 TSH 0.82 uIU/ml (0.34-5.60) 01/06/18 14:27 Urine Source RANDOM 01/06/18 01:00 Urine Color YELLOW 01/06/18 01:00 Urine Clarity CLEAR (CLEAR) 01/06/18 01:00 Urine pH 5.5 (4.6 - 8.0) 01/06/18 01:00 Ur Specific [place] 1.020 (1.005-1.030) 01/06/18 01:00 Urine Protein NEGATIVE mg/dL (NEGATIVE) 01/06/18 01:00 Urine Glucose (UA) NEGATIVE mg/dL (NEGATIVE) 01/06/18 01:00 Urine Ketones NEGATIVE mg/dL (NEGATIVE) 01/06/18 01:00 Urine Blood NEGATIVE (NEGATIVE) 01/06/18 01:00 Urine Nitrate NEGATIVE (NEGATIVE) 01/06/18 01:00 Urine Bilirubin NEGATIVE (NEGATIVE) 01/06/18 01:00 Urine Urobilinogen 0.2 E.U./dL (0.2 - 1.0) 01/06/18 01:00 Ur Leukocyte Esterase NEGATIVE (NEGATIVE) 01/06/18 01:00 Urine RBC NONE SEEN /hpf (0-5) 01/06/18 01:00 Urine WBC NONE SEEN /hpf (0-5) 01/06/18 01:00 Ur Epithelial Cells NONE SEEN /lpf (FEW) 01/06/18 01:00 Urine Bacteria NONE SEEN /hpf (NONE SEEN) 01/06/18 01:00 Valproic Acid < 10.0 ug/mL (50.0-100.0) L 01/14/18 07:20 - Physical Exam Vitals and I&O: Vital Signs Temp 97.8 F 01/14/18 04:00 Pulse 112 01/14/18 04:00 Resp 21 01/14/18 04:00 BP 151/83 01/14/18 04:00 Pulse Ox 98 01/14/18 04:00 Intake & Output 01/13/18 01/14/18 01/14/18 18:59 06:59 18:59 Intake Total 795 1000 Balance 795 1000 Weight (lbs) 67.132 kg 67.132 kg Intake: Intake, IV Amount 745 1000 D5W w/20 mEq KCL 1,000 ml 745 1000 @ 75 mls/hr IV .[id number] K[facility] Rx#:[id number] Oral 50 Other: # Voids 3 2 Weight Source Estimated Bedscale Active Medications: Current Medications Acetaminophen (Tylenol) 650 mg PO Q4HR PRN PRN Reason: Pain Or Fever above 101 Stop: 03/06/18 16:07 Diltiazem HCl (Cardizem) 120 mg PO Q12HR [facility] Stop: 03/06/18 20:59 Last Admin: 01/14/18 10:34 Dose: Not Given Divalproex Sodium (Depakote Dr) 500 mg PO HS K[facility]ODE PRN Reason: Protocol Stop: 03/06/18 20:59 Last Admin: 01/13/18 21:00 Dose: Not Given Docusate Sodium (Colace) 100 mg PO BID [facility] Stop: 03/06/18 16:59 Last Admin: 01/14/18 10:34 Dose: Not Given Haloperidol Lactate (Haldol) 5 mg IM Q6HR PRN PRN Reason: Agitation Stop: 03/08/18 07:21 Last Admin: 01/12/18 06:34 Dose: 5 mg Potassium Chloride/Dextrose (D5w W/20 Meq Kcl) 1,000 mls @ 75 mls/hr IV .[id number] [facility] Stop: 03/12/18 13:44 Last Admin: 01/14/18 15:29 Dose: 75 mls/hr Insulin Aspart (Novolog Insulin Sliding Scale) 0 units SUBQ ACHS [facility] PRN Reason: Protocol Stop: 03/06/18 16:29 Last Admin: 01/14/18 13:34 Dose: Not Given Lactobacillus Rhamnosus (Culturelle 15b) 1 each PO DAILY [facility] Stop: 03/12/18 08:59 Last Admin: 01/14/18 10:34 Dose: Not Given Lorazepam (Ativan) 1 mg IVP Q4HR PRN; Protocol PRN Reason: Agitation Stop: 03/09/18 08:53 Last Admin: 01/14/18 10:36 Dose: 1 mg Magnesium Hydroxide (Milk Of Magnesia) 30 ml PO HS PRN PRN Reason: Constipation Stop: 03/06/18 15:52 Memantine (Namenda) 10 mg PO BID [facility] Stop: 03/06/18 16:59 Last Admin: 01/14/18 10:34 Dose: Not Given Metoprolol Tartrate (Lopressor) 25 mg PO BID [facility] Stop: 03/06/18 16:59 Last Admin: 01/14/18 10:34 Dose: Not Given Miscellaneous (Probiotic Screen) 1 ea MC PRN PRN PRN Reason: PROTOCOL Stop: 03/11/18 11:59 Multivitamins/Vitamin C (Theragran) 1 tab PO DAILY [facility] Stop: 03/07/18 08:59 Last Admin: 01/14/18 10:34 Dose: Not Given Olanzapine (Zyprexa) 10 mg PO BID [facility] PRN Reason: Protocol Stop: 03/06/18 16:59 Last Admin: 01/14/18 10:34 Dose: Not Given Quetiapine Fumarate (Seroquel) 50 mg PO HS [facility] PRN Reason: Protocol Stop: 03/08/18 20:59 Last Admin: 01/13/18 21:00 Dose: Not Given Quetiapine Fumarate (Seroquel) 50 mg PO BID [facility] PRN Reason: Protocol Stop: 03/11/18 07:54 Last Admin: 01/14/18 10:35 Dose: Not Given General: Alert, No acute distress (Confused.) HEENT: Atraumatic, PERRLA, EOMI, Other (dry oral mucosa) Neck: Supple, JVD Cardiovascular: Regular rate, Normal S1, Normal S2 Lungs: Clear to auscultation Abdomen: Bowel sounds, Soft Neurological: Other (confused. Does not follow directions) Psych/Mental Status: Other (labile.) Assessment/Plan - Assessment Assessment: 1. ALOC 2. Hypernatremia 3. ARCHIE 4. Psyche history. Confused at this time. 5. SZD 6. DM 7. HTN - Plan Plan: renal function is stable will follow PRN Nutritional Asmnt/Malnutr-PDOC - Dietary Evaluation Malnutrition Findings (Please click <Entered> for more info): Nutritional Asmnt/Malnutrition Start: 01/08/18 17: 05 Text: Status: Complete Freq: Document 01/08/18 17:07 LCHENG (Rec: 01/08/18 17:31 LCHENG [email or web address]) Nutritional Asmnt/Malnutrition Patient General Information Nutritional Screening High Risk Diagnosis acute renal failure Pertinent Medical Hx/Surgical Hx HTN, hyperlipidemia, psychosis , dementia, DJD Subjective Information Pt was transfered from [facility].Pt seen sleeping in nato-chair in his room. Pt is combative, on 1:1 sitter. Per RN, PO intake varied d/t mental status. Per EMR, PO intake 0-75%. Current Diet Order/ Nutrition Support CCHO 60gm Pertinent Medications D5w, colace, novolog, theragran, seroquel Pertinent Labs 01/08 Na 155, K 4.8, cl 117, BUN 61, Cr 2.0, glucose 113, POC 120-125 Nutritional Hx/Data Height 1.93 m Height (Calculated Centimeters) 193.0 Current Weight (lbs) 72.575 kg Weight (Calculated Kilograms) 72.6 Weight (Calculated Grams) 65830.8 [place] Body Weight 202 Body Mass Index (BMI) 19.5 Weight Status Approriate GI Symptoms GI Symptoms None Last BM 0 Difficult in: None Skin Integrity/Comment: intact Current %PO Fair (50-74%) Estimated Nutritional Goals BEE in Kcals: Using Current wt Calories/Kcals/Kg 25-30 Kcals Calculated 4408-4157 Protein: Using Current wt Protein g/k.8 Protein Calculated 58 Fluid: ml 1825-2190ml (1ml/kcal) Nutritional Problem 1. Problem Problem altered nutrition related labs Etiology acute renal failure Signs/Symptoms: Na 155, BUN 61, Cr 2.0 Malnutrition Alert Protein-Calorie Malnutrition N/A Is there a minimum of two criteria No selected? Query Text:Check all the applicable criteria. A minimum of two criteria are recommended for diagnosis of either severe or non-severe malnutrition. Intervention/Recommendation Comments 1. Recommend adding renal diet considering acute renal failure with elevated Na, BUN, Cr. 2. Monitor PO intake, wt, labs and skin integrity 3. F/U as high risk in 2-3 days, 01/10-01/11 Expected Outcomes/Goals Expected Outcomes/Goals 1. PO intake to meet at least 75% of nutritional needs. 2. Wt stability, skin to remain intact, labs to approach WNL.
--- NOTE | 2018-01-14 17:19 | Operative Report ---
DATE OF SURGERY: 01/14/2018 INPATIENT EGD AND G-TUBE PLACEMENT PROCEDURE PERFORMED: EGD with biopsy and EGD with G-tube placement. ENDOSCOPIST: Penelope Martin M.D. PREOPERATIVE DIAGNOSES: Dysphagia, anorexia, and poor p.o. nutrition. POSTOPERATIVE DIAGNOSES: Gastric polyp and successful G-tube placement. INDICATION: The patient is a 62-year-old male with history of dementia. He is a permanent resident of a nursing facility, who has been admitted to this hospital for several weeks suffering from sepsis and has been noted to be taking in poor oral nutrition for the past week and a half. He has failed a swallow evaluation and is unable to take an adequate nutrition. Thus, GI is asked to place a G-tube which is appropriate at this point to help with recovery. CONSENT: Informed consent was obtained from the patient's . The risks and benefits of this procedure were discussed include but not limited to infection, bleeding, perforation, need for surgery, cardiopulmonary complications, missed pathology, G-tube site related infection, premature G-tube site removal, G-tube site related perforation, and . The patient indicated and the patient's indicated her understanding of these risks and wished to go for the procedure and signed a consent form. ANESTHESIA: The procedure was done in the main operating room under the care of the general anesthesiologist. PROCEDURE IN DETAIL: The patient was hooked up to the appropriate monitoring devices and kept in the supine position. After initiation of general anesthesia, a gastroscope was introduced into the mouth and guided under direct visualization into the esophagus, stomach, and duodenum. The Z-line was located at 40 cm from the incisors. Of note, there was thick mucus secretion in the esophageal cavity, which easily washed away. There was also noted to be poor oral care and very dry mucosa in the oral cavity. There was evidence of a 2-3 cm hiatal hernia at the Z-line. The stomach appeared endoscopically normal without ulceration or mass lesion, although there was a small gastric polyp located in the antrum, which was biopsied. Additionally, CASSANDRA testing was performed to look for any evidence of H. pylori. Duodenal bulb and second portion appeared endoscopically normal. Next, an appropriate location for the G-tube was found using a single poke method and transillumination from within the stomach. A small 22-gauge needle was used to inject subcutaneous lidocaine into this area. Next, the same needle was seen to freely enter into the stomach without resistance. An incision was made in the skin at the site and a trocar was then placed through the incision and under direct visualization, seen to enter into the stomach without resistance. The trocar was secured using a snare device. Next, the needle was removed and a guidewire was placed through the trocar, which was grasped with the snare device. The scope and this guidewire were then pulled out through the mouth and a 20-Kiswahili G-tube was attached to the guidewire snugly. Using standard pull technique, the G-tube and guidewire were pulled back down through the mouth, through the esophagus and snugged to the abdominal wall. At this point, the external bumper was placed leaving 1 cm of space between the skin and the bumper and antibiotic ointment was placed at the skin site. The scope was reinserted into the stomach and observed the internal bumper to be in the appropriate location and freely twisting. Of note, the patient did receive 1 gram of Ancef prior to the procedure. RECOMMENDATIONS: 1. The G-tube can be used immediately for medication and water flushes. 2. At 8 hours, tube feeding can be started at 10 mL an hour and increased by 10 mL per hour until goal rate of 50 mL an hour is met. 3. Check for residuals every 6 hours and hold for any residual greater than 150 mL. 4. Abdominal binder should be put in place. Thank you for allowing me to participate in this patient's care. Please call with any further questions. JOB# [id number]
--- NOTE | 2018-01-14 17:42 | Progress Notes ---
DATE: 01/14/2018 SUBJECTIVE: The patient seen and examined. The patient is lying in the bed. The patient is not eating, not drinking. The patient is currently on IV fluid. The patient scheduled to have CT scan of head with and without contrast along with a gastrostomy tube to be placed CHRISTOPH today. The patient does not provide a meaningful history. PHYSICAL EXAMINATION: VITAL SIGNS: Temperature 97.8, pulse 112, respiratory rate 20, blood pressure 151/83. HEENT: No facial asymmetry. Tongue was pink and coated. NECK: Supple, no JVD. HEART: Regular. CHEST: Lung equal in expansion with expiratory wheezing. ABDOMEN: Soft. No guarding, rigidity. Bowel sounds are present. No palpable mass. EXTREMITIES: No edema. CLINICAL IMPRESSION: 1. Hypernatremia, resolved. 2. Acute kidney injury. 3. Severe dysphagia. 4. Unable to eat p.o. diet. 5. Slightly abnormal liver function test. 6. Psychotic disorder. PLAN: In the view of her abnormal liver function test, discontinue Lipitor for now. Depakote level will be checked as well. The patient will be continued on IV fluid and have GI and a consult to proceed with gastrostomy tube placement. Further recommendation will be given after CT scan of the head with and without contrast report results. Care plan has been reviewed and discussed with patient's assigned nurse as well. JOB# [id number]
--- NOTE | 2018-01-14 21:48 | Progress Notes ---
DATE: 01/14/[address] Feliciano. Case was discussed with staff of the patient, reviewed record. He is a well-known case to me, continues to be irritable, restless, agitated, talking to himself. However, he is better in general. He is compliant with the medication with no side effects, no sedation, no nausea, no extrapyramidal symptoms. Thank you very much for allowing me to participate in the care of this most interesting gentleman. JOB# [id number]
[2018-01-15] MEDS: Haloperidol Lactate 5 mg/mL 1mL Vial IM PRN (05:06)
[2018-01-15 06:17] LABS: % BASOPHILS 0.6 % (0.0-2.0); % EOSINOPHILS 0.6 % (0.0-5.0); % LYMPHOCYTES 12.9 % (20.0-50.0); % MONOCYTES 5.6 % (2.0-10.0); % NEUTROPHILS 80.3 % (40.0-80.0); BASOPHILE ABSOLUTE 0.1 Th/cumm (0-0.2); EOSINOPHILE ABSOLUTE 0.1 Th/cmm (0.1-0.4); HEMATOCRIT 41.4 % (41.0-60); HEMOGLOBIN 13.6 gm/dL (12-16); LYMPHOCYTE ABSOLUTE 1.4 Th/cmm (1.5-3.0); MEAN CELL VOLUME 88.2 fl (80-99); MEAN CORPUSCULAR HGB CONC 32.9 pg (28.0-36.0); MEAN PLATELET VOLUME 8.7 fl; MONOCYTE ABSOLUTE 0.6 Th/cmm (0.3-1.0); NEUTROPHILE ABSOLUTE 8.9 Th/cmm (1.8-8.0); PLATELET COUNT 198 Th/cmm (150-400); RED CELL DISTRIBUTION WIDTH 13.2 % (11.5-20.0); WHITE BLOOD COUNT 11.1 Th/cmm (4.8-10.8)
[2018-01-15 06:36] LABS: INR 1.36 (0.5-1.4); PROTHROMBIN TIME (TEST) 14.3 SECONDS (9.5-11.5)
[2018-01-15 06:40] LABS: ALB/GLOB RATIO 0.8 (1.0-1.8); ALBUMIN 3.1 gm/dL (4.2-5.5); ALKALINE PHOSPHATASE 64 U/L (34-104); ANION GAP 13.6 (7.0-16.0); BILIRUBIN,TOTAL 0.5 mg/dL (0.3-1.0); BUN - UREA NITROGEN 23 mg/dL (7-25); CALCIUM SERUM 9.5 mg/dL (8.6-10.3); CARBON DIOXIDE 18.9 mEq/L (21.0-31.0); CHLORIDE 111 mEq/L (98-107); CREATININE - SERUM 1.4 mg/dL (0.7-1.3); GFR AFRICAN-AMERICAN > 60.0 ml/min (>90); GFR NON AFRICAN-AMERICAN 54.9 ml/min; GLUCOSE 141 mg/dL (70-105); POTASSIUM SERUM 4.5 mEq/L (3.5-5.1); SGOT 69 U/L (13-39); SGPT/ALT 46 U/L (7-52); SODIUM SERUM 139 mEq/L (136-145)
[2018-01-15] MEDS: INSULIN ASPART SLIDING SCALE 100 UNITS/ML UNIT SUBQ SCH ×4 (07:37→22:49)
[2018-01-15] MEDS: Lactobacillus Rhamnosus GG 15 Billion CFU CAP.SPRINK PO SCH (08:36)
[2018-01-15] MEDS: Multivitamin Tab PO SCH (08:37)
[2018-01-15] MEDS: Diltiazem 30 mg Tab PO SCH ×2 (08:38→22:44)
--- NOTE | 2018-01-15 09:53 | GI Progress Note ---
Subjective - Review of Systems Service Date: 01/15/18 Subjective: Tolerating feeds at 10cc/hr Objective - Results Result Diagrams: 01/15/18 06:00 01/15/18 06:00 Recent Labs: Laboratory Last Values WBC 11.1 Th/cmm (4.8-10.8) H 01/15/18 06:00 RBC 4.70 Mil/cmm (4.30-5.70) 01/15/18 06:00 Hgb 13.6 gm/dL (12-16) 01/15/18 06:00 Hct 41.4 % (41.0-60) 01/15/18 06:00 MCV 88.2 fl (80-99) 01/15/18 06:00 MCH 29.0 pg (26.0-30.0) 01/15/18 06:00 MCHC Differential 32.9 pg (28.0-36.0) 01/15/18 06:00 RDW 13.2 % (11.5-20.0) 01/15/18 06:00 Plt Count 198 Th/cmm (150-400) 01/15/18 06:00 MPV 8.7 fl 01/15/18 06:00 Neutrophils % 80.3 % (40.0-80.0) H 01/15/18 06:00 Lymphocytes % 12.9 % (20.0-50.0) L 01/15/18 06:00 Monocytes % 5.6 % (2.0-10.0) 01/15/18 06:00 Eosinophils % 0.6 % (0.0-5.0) 01/15/18 06:00 Basophils % 0.6 % (0.0-2.0) 01/15/18 06:00 PT 14.3 SECONDS (9.5-11.5) H 01/15/18 06:00 INR 1.36 (0.5-1.4) 01/15/18 06:00 PTT (Actin FS) 27.8 SECONDS (26.0-38.0) 01/14/18 09:19 Sodium 139 mEq/L (136-145) 01/15/18 06:00 Potassium 4.5 mEq/L (3.5-5.1) 01/15/18 06:00 Chloride 111 mEq/L (98-107) H 03/27/18 06:00 Carbon Dioxide 18.9 mEq/L (21.0-31.0) L 01/15/18 06:00 Anion Gap 13.6 (7.0-16.0) 01/15/18 06:00 BUN 23 mg/dL (7-25) 01/15/18 06:00 Creatinine 1.4 mg/dL (0.7-1.3) H 01/15/18 06:00 Est GFR ( Amer) > 60.0 ml/min (>90) 01/15/18 06:00 Est GFR (Non-Af Amer) 54.9 ml/min 01/15/18 06:00 BUN/Creatinine Ratio 16.4 01/15/18 06:00 Glucose 141 mg/dL (70-105) H 01/15/18 06:00 POC Glucose 103 MG/DL (70 - 105) 01/14/18 18:03 Hemoglobin A1c % 5.8 % (4.0-6.0) 01/06/18 06:00 Calcium 9.5 mg/dL (8.6-10.3) 01/15/18 06:00 Magnesium 2.0 mg/dL (1.9-2.7) 01/13/18 07:24 Total Bilirubin 0.5 mg/dL (0.3-1.0) 01/15/18 06:00 AST 69 U/L (13-39) H 01/15/18 06:00 ALT 46 U/L (7-52) 01/15/18 06:00 Alkaline Phosphatase 64 U/L (34-104) 01/15/18 06:00 Total Protein 7.0 gm/dL (6.0-8.3) 01/15/18 06:00 Albumin 3.1 gm/dL (4.2-5.5) L 01/15/18 06:00 Globulin 3.9 gm/dL 01/15/18 06:00 Albumin/Globulin Ratio 0.8 (1.0-1.8) L 01/15/18 06:00 TSH 0.82 uIU/ml (0.34-5.60) 01/06/18 14:27 Urine Source RANDOM 01/06/18 01:00 Urine Color YELLOW 01/06/18 01:00 Urine Clarity CLEAR (CLEAR) 01/06/18 01:00 Urine pH 5.5 (4.6 - 8.0) 01/06/18 01:00 Ur Specific [place] 1.020 (1.005-1.030) 01/06/18 01:00 Urine Protein NEGATIVE mg/dL (NEGATIVE) 01/06/18 01:00 Urine Glucose (UA) NEGATIVE mg/dL (NEGATIVE) 01/06/18 01:00 Urine Ketones NEGATIVE mg/dL (NEGATIVE) 01/06/18 01:00 Urine Blood NEGATIVE (NEGATIVE) 01/06/18 01:00 Urine Nitrate NEGATIVE (NEGATIVE) 01/06/18 01:00 Urine Bilirubin NEGATIVE (NEGATIVE) 01/06/18 01:00 Urine Urobilinogen 0.2 E.U./dL (0.2 - 1.0) 01/06/18 01:00 Ur Leukocyte Esterase NEGATIVE (NEGATIVE) 01/06/18 01:00 Urine RBC NONE SEEN /hpf (0-5) 01/06/18 01:00 Urine WBC NONE SEEN /hpf (0-5) 01/06/18 01:00 Ur Epithelial Cells NONE SEEN /lpf (FEW) 01/06/18 01:00 Urine Bacteria NONE SEEN /hpf (NONE SEEN) 01/06/18 01:00 Valproic Acid < 10.0 ug/mL (50.0-100.0) L 01/14/18 07:20 Blood Type O POSITIVE 01/14/18 13:15 Antibody Screen NEGATIVE 01/14/18 13:15 - Physical Exam Vitals and I&O: Vital Signs Temp 98.9 F 01/15/18 04:00 Pulse 137 01/15/18 08:38 Resp 20 01/15/18 04:00 BP 138/84 01/15/18 08:38 Pulse Ox 97 01/15/18 04:00 Intake & Output 01/14/18 01/15/18 01/15/18 18:59 06:59 18:59 Intake Total 1000 Output Total 1 Balance 1000 -1 Weight (lbs) 67.132 kg Intake: Intake, IV Amount 1000 D5W w/20 mEq KCL 1,000 ml 1000 @ 75 mls/hr IV .[id number] [facility] Rx#:[id number] Output: Urine/Stool Mix 1 Other: Weight Source Estimated Active Medications: Current Medications Acetaminophen (Tylenol) 650 mg PO Q4HR PRN PRN Reason: Pain Or Fever above 101 Stop: 03/06/18 16:07 Diltiazem HCl (Cardizem) 120 mg PO Q12HR [facility] Stop: 03/06/18 20:59 Last Admin: 01/15/18 08:38 Dose: 120 mg Divalproex Sodium (Depakote Dr) 500 mg PO HS [facility] PRN Reason: Protocol Stop: 03/06/18 20:59 Last Admin: 01/14/18 22:06 Dose: 500 mg Docusate Sodium (Colace) 100 mg PO BID [facility] Stop: 03/06/18 16:59 Last Admin: 01/15/18 08:36 Dose: 100 mg Haloperidol Lactate (Haldol) 5 mg IM Q6HR PRN PRN Reason: Agitation Stop: 03/08/18 07:21 Last Admin: 01/15/18 05:06 Dose: 5 mg Potassium Chloride/Dextrose (D5w W/20 Meq Kcl) 1,000 mls @ 75 mls/hr IV .[id number] [facility] Stop: 03/12/18 13:44 Last Admin: 01/14/18 15:29 Dose: 75 mls/hr Insulin Aspart (Novolog Insulin Sliding Scale) 0 units SUBQ ACHS [facility] PRN Reason: Protocol Stop: 03/06/18 16:29 Last Admin: 01/15/18 07:37 Dose: Not Given Lactobacillus Rhamnosus (Culturelle 15b) 1 each PO DAILY [facility] Stop: 03/12/18 08:59 Last Admin: 01/15/18 08:36 Dose: 1 each Lorazepam (Ativan) 1 mg IVP Q4HR PRN; Protocol PRN Reason: Agitation Stop: 03/09/18 08:53 Last Admin: 01/14/18 10:36 Dose: 1 mg Magnesium Hydroxide (Milk Of Magnesia) 30 ml PO HS PRN PRN Reason: Constipation Stop: 03/06/18 15:52 Memantine (Namenda) 10 mg PO BID [facility] Stop: 03/06/18 16:59 Last Admin: 01/15/18 08:37 Dose: 10 mg Metoprolol Tartrate (Lopressor) 25 mg PO BID [facility] Stop: 03/06/18 16:59 Last Admin: 01/15/18 08:38 Dose: 25 mg Miscellaneous (Probiotic Screen) 1 ea [facility] PRN PRN PRN Reason: PROTOCOL Stop: 03/11/18 11:59 Multivitamins/Vitamin C (Theragran) 1 tab PO DAILY [facility] Stop: 03/07/18 08:59 Last Admin: 01/15/18 08:37 Dose: 1 tab Olanzapine (Zyprexa) 10 mg PO BID [facility] PRN Reason: Protocol Stop: 03/06/18 16:59 Last Admin: 01/15/18 08:36 Dose: 10 mg Quetiapine Fumarate (Seroquel) 50 mg PO HS [facility] PRN Reason: Protocol Stop: 03/08/18 20:59 Last Admin: 01/14/18 22:07 Dose: 50 mg Quetiapine Fumarate (Seroquel) 50 mg PO BID [facility] PRN Reason: Protocol Stop: 03/11/18 07:54 Last Admin: 01/15/18 08:37 Dose: 50 mg General: Alert, No acute distress (Confused.) HEENT: Atraumatic, PERRLA, EOMI, Other (dry oral mucosa) Neck: Supple, JVD Cardiovascular: Regular rate Lungs: Clear to auscultation Abdomen: Bowel sounds, Soft, Other (G tube c/d/i), no Distended, no Rebound, no Mass Neurological: Other (confused. Does not follow directions) Psych/Mental Status: Other (labile.) Assessment/Plan - Assessment Assessment: # Sepsis # Dementia # Dysphagia # failure to thrive EGD with G tube insertion on 01/14. Biopsies also taken for CASSANDRA testing. Plan: - cont to increase feeds at 10cc per hour until goal of 50cc/hr - check residual every 6 hours, hold for greater than 100 - flush G tube every 6 hours with 100cc water - ok to restart pt's coumadin as per other consultants
[2018-01-15] MEDS: D5W w/20 mEq KCL 1,000 ML IV SCH (11:27)
--- NOTE | 2018-01-15 23:05 | Progress Notes ---
DATE: PATIENT IDENTIFICATION: A 62-year-old male. SUBJECTIVE: The patient was seen and examined. The patient did have a G-tube placement. The patient is getting tube feeding. So far, the patient is clearly hemodynamically remained stable. The patient is still nonverbal. The patient is followed by psychiatrist as well as edge worker as well. PHYSICAL EXAMINATION: VITAL SIGNS: Temperature is 97, pulse is 100, respiratory rate is 18, blood pressure 138/75. HEENT: No facial asymmetry. NECK: Supple, no JVD. HEART: Irregular. CHEST: Lung equal in expansion. LUNGS: No wheezing, no crackles. ABDOMEN: Soft. Gastrostomy tube noted. Bowel sounds are present. EXTREMITIES: No edema. AVAILABLE DIAGNOSTIC DATA: BUN and creatinine is 23 and 1.4. White count of 11.1, hemoglobin 13.6, platelet count 198. Glucoscan is reviewed. CLINICAL IMPRESSION: 1. Status post gastrostomy tube placement for poor p.o. intake. 2. Significant dysphagia. 3. Psychotic disorder. 4. Diabetes mellitus. 5. Hypertension. 6. Hyperlipidemia. 7. Decline in self-care and mobility. PLAN: The patient currently tolerating tube feeding fairly well. Electrolytes are remaining stable. At this time, the patient will be given continuation of same medication. Discontinue IV fluid, increase tube feeding and have discharge planning to residential for now until the patient is more stable. Discharge plan is discussed with care plan, discharge plan as well. [facility]# [id number]
--- NOTE | 2018-01-15 23:15 | Progress Notes ---
DATE: 01/15/2018 SUBJECTIVE: Case was discussed with staff of the patient and reviewed records. The patient continues to be unpredictable, impulsive, continues to have poor insight, continues to need redirection, continues to have episodes of irritability. In general, he has been easier to redirect. He is on Depakote 500 mg at bedtime and Haldol as needed that was initiated by Dr. Feliciano, Namenda 10 mg twice a day, Zyprexa 10 mg twice a day, and Seroquel 50 mg at bedtime and 50 mg twice a day, and no side effects, no sedation, no nausea. Thank you very much for allowing me to participate in the care of this most interesting gentleman. JOB# [id number]
[2018-01-16] MEDS: INSULIN ASPART SLIDING SCALE 100 UNITS/ML UNIT SUBQ SCH ×4 (07:16→21:14)
[2018-01-16] MEDS: Lactobacillus Rhamnosus GG 15 Billion CFU CAP.SPRINK PO SCH (08:59)
[2018-01-16] MEDS: Diltiazem 30 mg Tab PO SCH ×2 (08:59→20:20)
[2018-01-16] MEDS: Multivitamin Tab PO SCH (09:00)
[2018-01-16] MEDS ORDERED: IOHEXOL 350mgI/mL 50mL Bottle IVP ONE (09:44)
--- NOTE | 2018-01-16 12:10 | GI Progress Note ---
Subjective - Review of Systems Service Date: 01/16/18 Subjective: Tolerating feeds at 50cc/hr Objective - Results Result Diagrams: 01/15/18 06:00 01/15/18 06:00 Recent Labs: Laboratory Last Values WBC 11.1 Th/cmm (4.8-10.8) H 01/15/18 06:00 RBC 4.70 Mil/cmm (4.30-5.70) 01/15/18 06:00 Hgb 13.6 gm/dL (12-16) 01/15/18 06:00 Hct 41.4 % (41.0-60) 01/15/18 06:00 MCV 88.2 fl (80-99) 01/15/18 06:00 MCH 29.0 pg (26.0-30.0) 01/15/18 06:00 MCHC Differential 32.9 pg (28.0-36.0) 01/15/18 06:00 RDW 13.2 % (11.5-20.0) 01/15/18 06:00 Plt Count 198 Th/cmm (150-400) 01/15/18 06:00 MPV 8.7 fl 01/15/18 06:00 Neutrophils % 80.3 % (40.0-80.0) H 01/15/18 06:00 Lymphocytes % 12.9 % (20.0-50.0) L 01/15/18 06:00 Monocytes % 5.6 % (2.0-10.0) 01/15/18 06:00 Eosinophils % 0.6 % (0.0-5.0) 01/15/18 06:00 Basophils % 0.6 % (0.0-2.0) 01/15/18 06:00 PT 14.3 SECONDS (9.5-11.5) H 01/15/18 06:00 INR 1.36 (0.5-1.4) 01/15/18 06:00 PTT (Actin FS) 27.8 SECONDS (26.0-38.0) 01/14/18 09:19 Sodium 139 mEq/L (136-145) 01/15/18 06:00 Potassium 4.5 mEq/L (3.5-5.1) 01/15/18 06:00 Chloride 111 mEq/L (98-107) H 03/27/18 06:00 Carbon Dioxide 18.9 mEq/L (21.0-31.0) L 01/15/18 06:00 Anion Gap 13.6 (7.0-16.0) 01/15/18 06:00 BUN 23 mg/dL (7-25) 01/15/18 06:00 Creatinine 1.4 mg/dL (0.7-1.3) H 01/15/18 06:00 Est GFR ( Amer) > 60.0 ml/min (>90) 01/15/18 06:00 Est GFR (Non-Af Amer) 54.9 ml/min 01/15/18 06:00 BUN/Creatinine Ratio 16.4 01/15/18 06:00 Glucose 141 mg/dL (70-105) H 01/15/18 06:00 POC Glucose 123 MG/DL (70 - 105) H 01/15/18 22:47 Hemoglobin A1c % 5.8 % (4.0-6.0) 01/06/18 06:00 Calcium 9.5 mg/dL (8.6-10.3) 01/15/18 06:00 Magnesium 2.0 mg/dL (1.9-2.7) 01/13/18 07:24 Total Bilirubin 0.5 mg/dL (0.3-1.0) 01/15/18 06:00 AST 69 U/L (13-39) H 01/15/18 06:00 ALT 46 U/L (7-52) 01/15/18 06:00 Alkaline Phosphatase 64 U/L (34-104) 01/15/18 06:00 Total Protein 7.0 gm/dL (6.0-8.3) 01/15/18 06:00 Albumin 3.1 gm/dL (4.2-5.5) L 01/15/18 06:00 Globulin 3.9 gm/dL 01/15/18 06:00 Albumin/Globulin Ratio 0.8 (1.0-1.8) L 01/15/18 06:00 TSH 0.82 uIU/ml (0.34-5.60) 01/06/18 14:27 Urine Source RANDOM 01/06/18 01:00 Urine Color YELLOW 01/06/18 01:00 Urine Clarity CLEAR (CLEAR) 01/06/18 01:00 Urine pH 5.5 (4.6 - 8.0) 01/06/18 01:00 Ur Specific [place] 1.020 (1.005-1.030) 01/06/18 01:00 Urine Protein NEGATIVE mg/dL (NEGATIVE) 01/06/18 01:00 Urine Glucose (UA) NEGATIVE mg/dL (NEGATIVE) 01/06/18 01:00 Urine Ketones NEGATIVE mg/dL (NEGATIVE) 01/06/18 01:00 Urine Blood NEGATIVE (NEGATIVE) 01/06/18 01:00 Urine Nitrate NEGATIVE (NEGATIVE) 01/06/18 01:00 Urine Bilirubin NEGATIVE (NEGATIVE) 01/06/18 01:00 Urine Urobilinogen 0.2 E.U./dL (0.2 - 1.0) 01/06/18 01:00 Ur Leukocyte Esterase NEGATIVE (NEGATIVE) 01/06/18 01:00 Urine RBC NONE SEEN /hpf (0-5) 01/06/18 01:00 Urine WBC NONE SEEN /hpf (0-5) 01/06/18 01:00 Ur Epithelial Cells NONE SEEN /lpf (FEW) 01/06/18 01:00 Urine Bacteria NONE SEEN /hpf (NONE SEEN) 01/06/18 01:00 Valproic Acid < 10.0 ug/mL (50.0-100.0) L 01/14/18 07:20 Helicobacter pylori Ab NEGATIVE (NEGATIVE) 01/14/18 14:30 Blood Type O POSITIVE 01/14/18 13:15 Antibody Screen NEGATIVE 01/14/18 13:15 - Physical Exam Vitals and I&O: Vital Signs Temp 99.4 F 01/15/18 16:53 Pulse 85 01/16/18 09:00 Resp 18 01/16/18 08:00 BP 141/69 01/16/18 09:00 Pulse Ox 96 01/15/18 16:53 Intake & Output 01/15/18 01/16/18 01/16/18 18:59 06:59 18:59 Intake Total 325 Balance 325 Weight (lbs) 67.132 kg Intake: Tube Feeding 325 Other: # Voids 2 Weight Source Bedscale Active Medications: Current Medications Acetaminophen (Tylenol) 650 mg PO Q4HR PRN PRN Reason: Pain Or Fever above 101 Stop: 03/06/18 16:07 Diltiazem HCl (Cardizem) 120 mg PO Q12HR [facility] Stop: 03/06/18 20:59 Last Admin: 01/16/18 08:59 Dose: 120 mg Divalproex Sodium (Depakote Dr) 500 mg PO HS [facility] PRN Reason: Protocol Stop: 03/06/18 20:59 Last Admin: 01/15/18 22:46 Dose: 500 mg Docusate Sodium (Colace) 100 mg PO BID [facility] Stop: 03/06/18 16:59 Last Admin: 01/16/18 08:59 Dose: 100 mg Haloperidol Lactate (Haldol) 5 mg IM Q6HR PRN PRN Reason: Agitation Stop: 03/08/18 07:21 Last Admin: 01/15/18 05:06 Dose: 5 mg Insulin Aspart (Novolog Insulin Sliding Scale) 0 units SUBQ ACHS [facility] PRN Reason: Protocol Stop: 03/06/18 16:29 Last Admin: 01/16/18 07:16 Dose: Not Given Lactobacillus Rhamnosus (Culturelle 15b) 1 each PO DAILY [facility] Stop: 03/12/18 08:59 Last Admin: 01/16/18 08:59 Dose: 1 each Lorazepam (Ativan) 1 mg IVP Q4HR PRN; Protocol PRN Reason: Agitation Stop: 03/09/18 08:53 Last Admin: 01/16/18 02:42 Dose: 1 mg Magnesium Hydroxide (Milk Of Magnesia) 30 ml PO HS PRN PRN Reason: Constipation Stop: 03/06/18 15:52 Memantine (Namenda) 10 mg PO BID [facility] Stop: 03/06/18 16:59 Last Admin: 01/16/18 08:59 Dose: 10 mg Metoprolol Tartrate (Lopressor) 25 mg PO BID [facility] Stop: 03/06/18 16:59 Last Admin: 01/16/18 09:00 Dose: 25 mg Miscellaneous (Probiotic Screen) 1 ea [facility] PRN PRN PRN Reason: PROTOCOL Stop: 03/11/18 11:59 Multivitamins/Vitamin C (Theragran) 1 tab PO DAILY [facility] Stop: 03/07/18 08:59 Last Admin: 01/16/18 09:00 Dose: 1 tab Olanzapine (Zyprexa) 10 mg PO BID [facility] PRN Reason: Protocol Stop: 03/06/18 16:59 Last Admin: 01/16/18 09:00 Dose: 10 mg Quetiapine Fumarate (Seroquel) 50 mg PO HS [facility] PRN Reason: Protocol Stop: 03/08/18 20:59 Last Admin: 01/15/18 22:47 Dose: 50 mg Quetiapine Fumarate (Seroquel) 50 mg PO BID [facility] PRN Reason: Protocol Stop: 03/11/18 07:54 Last Admin: 01/16/18 09:00 Dose: 50 mg General: Alert, No acute distress (Confused.) HEENT: Atraumatic, PERRLA, EOMI, Other (dry oral mucosa) Neck: Supple, JVD Cardiovascular: Regular rate Lungs: Clear to auscultation Abdomen: Bowel sounds, Soft, Other (G tube c/d/i), no Distended, no Rebound, no Mass Neurological: Other (confused. Does not follow directions) Psych/Mental Status: Other (labile.) - Procedures Procedures: Procedures Procedure Code Date EGD PLACE GASTROSTOMY TUBE 69044 01/05/18 INSERTION OF FEEDING DEVICE INTO STOMACH, PERC APPROACH [id number] 01/05/18 Assessment/Plan - Assessment Assessment: # Sepsis # Dementia # Dysphagia # failure to thrive EGD with G tube insertion on 01/14. Biopsies also taken for CASSANDRA testing. Plan: - cont at goal rate 50cc/hr - check residual every 6 hours, hold for greater than 100 - flush G tube every 6 hours with 100cc water - ok to restart pt's coumadin as per other consultants GI to see as needed, please call with any questions
--- NOTE | 2018-01-16 12:38 | Pathology Report ---
[id number] Collection date: 01/14/2018 Surgeon: Dr. Clement Negrete Specimen Description: Gastric polyp Gross Description: Received in formalin is a single marinelli soft tissue fragment measuring 0.2 cm in greatest dimension. Totally submitted in one cassette. Microscopic Description: The histologic sections show a polypoid portion of benign gastric mucosa with chronic inflammation present consisting of lymphocytes and plasma cells. Diagnosis: Chronic gastritis, gastric biopsy. Comment: There is no evidence for malignancy. JOB# [id number] [facility]
[2018-01-16 13:09] LABS: % BASOPHILS 2.3 % (0.0-2.0); % EOSINOPHILS 0.9 % (0.0-5.0); % LYMPHOCYTES 9.7 % (20.0-50.0); % MONOCYTES 5.9 % (2.0-10.0); % NEUTROPHILS 81.2 % (40.0-80.0); BASOPHILE ABSOLUTE 0.2 Th/cumm (0-0.2); EOSINOPHILE ABSOLUTE 0.1 Th/cmm (0.1-0.4); HEMATOCRIT 39.7 % (41.0-60); MEAN CELL VOLUME 87.9 fl (80-99); MEAN CORPUSCULAR HEMOGLOBIN 28.7 pg (26.0-30.0); MEAN CORPUSCULAR HGB CONC 32.7 pg (28.0-36.0); MEAN PLATELET VOLUME 8.7 fl; MONOCYTE ABSOLUTE 0.6 Th/cmm (0.3-1.0); NEUTROPHILE ABSOLUTE 7.9 Th/cmm (1.8-8.0); PLATELET COUNT 196 Th/cmm (150-400); RED BLOOD COUNT 4.51 Mil/cmm (4.30-5.70); RED CELL DISTRIBUTION WIDTH 13.3 % (11.5-20.0); WHITE BLOOD COUNT 9.8 Th/cmm (4.8-10.8)
[2018-01-16 13:17] LABS: BUN - UREA NITROGEN 30 mg/dL (7-25); CALCIUM SERUM 9.4 mg/dL (8.6-10.3); CARBON DIOXIDE 27.1 mEq/L (21.0-31.0); CHLORIDE 111 mEq/L (98-107); CREATININE - SERUM 1.2 mg/dL (0.7-1.3); GFR AFRICAN-AMERICAN > 60.0 ml/min (>90); GFR NON AFRICAN-AMERICAN > 60.0 ml/min; GLUCOSE 132 mg/dL (70-105); POTASSIUM SERUM 4.1 mEq/L (3.5-5.1); SODIUM SERUM 144 mEq/L (136-145)
--- NOTE | 2018-01-16 20:19 | History & Physical ---
ADMIT DATE: Chart reviewed and the patient interviewed. Also discussed the patient's condition with the staff and reviewed records and labs. The patient continued to be unpredictable and impulsive. The patient also continued to have poor insight and he still needs lots of redirections. Also, easily agitated and easily irritable. Otherwise, the patient is compliant with taking his medications with no side effects of medications. ASSESSMENT: The patient is still psychotic and agitated. TREATMENT PLAN: Continue to monitor his behavior and continue to work on behavioral modifications and followup. JOB# [id number]
--- NOTE | 2018-01-17 01:53 | Progress Notes ---
DATE: 01/16/2018 IDENTIFYING DATA: A 62-year-old male. SUBJECTIVE: The patient is seen and examined. The patient is nonverbal. The patient is tolerating tube feeding fairly well, hemodynamically stable. Glucoscan is reviewed. Discussed with RN. The patient currently has no new event. OBJECTIVE: VITAL SIGNS: Temperature 98, pulse is 85, respiratory rate 18, blood pressure 141/69. HEENT: No facial asymmetry. NECK: Supple. No JVD. HEART: Regular. CHEST: Lung equal in expansion with expiratory wheezing. ABDOMEN: Soft. No guarding, no rigidity. Bowel sounds are present. Gastrostomy tube noted. EXTREMITIES: No edema. NEUROLOGIC: Alert, but not following any commands. DIAGNOSTIC DATA: Available diagnostic data, none for my review. CLINICAL IMPRESSION: 1. Severe dysphagia, required gastrostomy tube placement. 2. Hypernatremia and acute kidney injury, resolved. 3. Psychotic disorder. 4. Diabetes. 5. Hypertension. 6. Hyperlipidemia. PLAN: The patient is currently on ____ which will be removed and the patient can be placed to lower level of care. The patient is having increased tube feeding to 65 mL per hour. Followup lab has been requested. Care plan reviewed with RN. Continue other medicine as prescribed. JOB# [id number]
[2018-01-17] MEDS: INSULIN ASPART SLIDING SCALE 100 UNITS/ML UNIT SUBQ SCH ×2 (06:31→12:23)
[2018-01-17] MEDS: Lactobacillus Rhamnosus GG 15 Billion CFU CAP.SPRINK PO SCH (08:52)
[2018-01-17] MEDS: Diltiazem 30 mg Tab PO SCH (08:52)
[2018-01-17] MEDS: Multivitamin Tab PO SCH (08:52)
--- NOTE | 2018-01-17 10:41 | Progress Notes ---
DATE: SUBJECTIVE: Chart reviewed and the patient interviewed. Also discussed the patient's condition with the staff and reviewed the records and labs. The patient is still easily agitated and he is still rambling. He also is still suspicious and is still paranoid. The patient also is unable to carry on any coherent conversation. On the other hand, his trial to get off the bed is less than what it was. ASSESSMENT: The patient is still agitated and is still psychotic. TREATMENT PLAN: We will continue Depakote and we will continue Seroquel, but we will increase Seroquel to 50 mg twice a day and 100 mg at bedtime. Also, continue to work on his irritability and ineffective coping. Also, we will get Depakote blood level and followup. [facility]# [id number]
[2018-01-17 20:50] LABS: ALLEN TEST Positive
[2018-01-17] MEDS ORDERED: DOPamine 400 MG/250 ML BAG IV PRN (21:01)
[2018-01-17] MEDS ORDERED: Atropine Sulfate 1 mg/mL 1 mL Vial IVP ONE (22:35)
[2018-01-17] MEDS ORDERED: Norepinephrine 4 mg/4mL Vial IV ONE (22:43)
--- NOTE | 2018-01-17 22:59 | Progress Notes ---
DATE: SUBJECTIVE: The patient seen and examined. The patient is still lying in the bed. The patient is alert, awake, but not following any commands. Discussed with patient's over the phone extensively about the patient's condition, diagnosis and treatment plan. The patient remained hemodynamically stable as well. Discharge planning to nursing was initiated. According to the [facility], they are unable to take this patient at this time. PHYSICAL EXAMINATION: VITAL SIGNS: Temperature 97.8, pulse 100, respiratory 20, blood pressure 140/82. HEENT: No facial asymmetry. Tongue was pink and coated. NECK: Supple. No JVD. HEART: Regular. CHEST: Lung equal in expansion, no wheezing, no crackles. ABDOMEN: Soft. No guarding, no rigidity. Bowel sounds are present. Gastrostomy tube noted. EXTREMITIES: No edema. NEUROLOGIC: Alert, awake. Some degree of spasticity noted. AVAILABLE DIAGNOSTIC DATA: Yesterday performed, sodium is 144, potassium 4.1, chloride 27.1, BUN and creatinine 13 and 1.2, glucose and INR is reviewed. Hemoglobin is reported 13, white count of 9.8. CLINICAL IMPRESSION: 1. Status post gastrostomy tube placement. 2. Encephalopathy. 3. Diabetes mellitus. 4. Hypertension. 5. Hyperlipidemia. 6. Dysphagia. 7. Degenerative joint disease. 8. Psychotic disorder with a period of agitation. PLAN: Medically, the patient remained stable at this time. The patient is to be downgraded to lower level of care. Though the patient is currently on hold, which we will discuss with psychiatrist about treatment plan to be given either at the lower level of care or can be transferred to Psychiatric Unit. JOB# [id number]
[2018-01-17] MEDS ORDERED: Albuterol/Ipratropium Neb 3 ML AERS HHN SCH (23:00)
[2018-01-18] MEDS ORDERED: Chlorhexidine Gluconate 0.12% 15mL Mouthwash MM SCH (08:00)
--- NOTE | 2018-01-18 09:06 | Diagnostic Imaging Report ---
CHEST X-RAY: AP view INDICATION: Intubation COMPARISON: Chest x-ray 01/14/2018 FINDINGS: ET tube is in place with tip 3.5 cm above the [place]. There is no focal consolidation or pleural effusions The heart is normal in size. IMPRESSION: Interval intubation with ET tube tip 3.5 cm above the Coret[place]. No focal consolidation identified.
--- NOTE | 2018-02-04 17:29 | Discharge Summary ---
DATE OF DISCHARGE: 01/17/2018 DATE OF : 01/17/2018 at 22:37. DISCHARGE DIAGNOSES: 1. Cardiac arrest. 2. Hypernatremia. 3. Dehydration. 4. Oropharyngeal dysphagia. 5. Metabolic encephalopathy. 6. Underlying Alzheimer's dementia. 7. Diabetes. 8. Hypertension. 9. Hyperlipidemia. 10. Degenerative joint disease. 11. Required total care. BRIEF STATEMENT FOR THE REASON FOR ADMISSION: A 62-year-old male who was initially admitted at Geropsych Unit for a psychotic illness. The patient was noted to have refusing to eat and altered mental status. The patient was noted to have hypernatremia and the patient was transferred to Med/Surg floor. Please refer to Dr. Hurd's H and P for further information. HOSPITAL COURSE: The patient was admitted to telemetry unit. The patient was placed on IV hydration. Nephrology consultation was requested. Nephrology workup was done as well. Empirical antibiotic was started as well. Psych consultation was requested to follow up as well. The patient was slowly improving with the treatment plan, but his mental status was still not improving to the baseline. The patient did require the several days of IV fluid and had multiple swallow evaluation, which he did feel. After explaining to the patient's family about need for feeding tube, gastrostomy tube was placed with the help of Gastroenterology. The patient was tolerating tube feeding as well. Once the patient was stabilized, it was decided that the patient can be transferred to lower level of care. The patient can receive further care. The patient's mental status improved and the patient was able to eat fairly well. The patient may require discontinue subcutaneous gastrostomy tube placement. Unfortunately, the patient sustained cardiopulmonary arrest, which required code blue resuscitation and the patient was transferred to ICU. Multiple attempts were made to stabilize the patient's vital signs, but it was unsuccessful. The patient sustained another cardiac arrest and code blue was called in. Unfortunately, the patient was unable to revive and the patient at 20:37 timeframe on 01/17/2018. At the time of discharge, the patient's family were notified about the patient being and . JOB# [id number]
== END 2018-01-17 22:37 | disposition expired | DRG 871 ==
LOC: TELE 15:19 → MSI 01-11 13:30 → ICU 01-17 19:34
PROVIDERS: ADMIT Internal Medicine; ATTEND Internal Medicine
PROC: 0DB68ZX Excision of Stomach, Via Natural or Artificial Opening Endoscopic, Diagnostic (ICD-10-PCS; principal; 2018-01-14)
PROC: 0DH68UZ Insertion of Feeding Device into Stomach, Via Natural or Artificial Opening Endoscopic (ICD-10-PCS; 2018-01-14)
PROC: 5A1935Z Respiratory Ventilation, Less than 24 Consecutive Hours (ICD-10-PCS; 2018-01-17)
DX: A41.9 Sepsis, unspecified organism (principal); G93.41 Metabolic encephalopathy; N17.9 Acute kidney failure, unspecified; E87.0 Hyperosmolality and hypernatremia; D69.59 Other secondary thrombocytopenia; R13.12 Dysphagia, oropharyngeal phase; I46.9 Cardiac arrest, cause unspecified; E86.0 Dehydration; E78.5 Hyperlipidemia, unspecified; T42.6X5A Adverse effect of other antiepileptic and sedative-hypnotic drugs, initial encounter; F03.90 Unspecified dementia, unspecified severity, without behavioral disturbance, psychotic disturbance, mood disturbance, and anxiety; M19.90 Unspecified osteoarthritis, unspecified site; I12.9 Hypertensive chronic kidney disease with stage 1 through stage 4 chronic kidney disease, or unspecified chronic kidney disease; N18.9 Chronic kidney disease, unspecified; R00.0 Tachycardia, unspecified; K31.7 Polyp of stomach and duodenum; R62.7 Adult failure to thrive; G40.909 Epilepsy, unspecified, not intractable, without status epilepticus; E11.22 Type 2 diabetes mellitus with diabetic chronic kidney disease; I69.30 Unspecified sequelae of cerebral infarction; Z91.81 History of falling; Z88.8 Allergy status to other drugs, medicaments and biological substances; Z79.899 Other long term (current) drug therapy; Z79.1 Long term (current) use of non-steroidal anti-inflammatories (NSAID); Z79.2 Long term (current) use of antibiotics
CPT/HCPCS: 36415-UA; 36600-90; 70470-TC; 71045-TC; 76700-TC; 76770-TC; 80048-TC; 80053-TC; 80164-TC; 81001-TC; 82803-TC; 82948-90; 83036-90; 83735-TC; 84443-TC; 85025-TC; 85610-TC; 85730-TC; 86850-TC; 86900-TC; 86901-TC; 87070; 87338-TC; 88305-90; 90784; 92950; 93005; 94002; 99201; J0171; J0690; J0696; J1630; J1815; J2060; J2370; J3480; J7070; Q9967; X6452; Z7506; Z7610